=== PATIENT | female | born 1980 | race Caucasian/White ===

== ENCOUNTER 2020-08-14 13:41 | Outpatient (REF) | payer OTHER, MEDICARE, SELFPAY | END 2020-08-14 13:42 | disposition home or self-care (01) | LOC: HO.LAB 13:41 | PROVIDERS: PCP Internal Medicine; Visit Provider Internal Medicine | DX: Z20.828 Contact with and (suspected) exposure to other viral communicable diseases (principal) | CPT/HCPCS: C9803; U0003 ==

== ENCOUNTER 2022-05-14 08:20 | Outpatient (REF) | payer MEDICARE, SELFPAY ==
[2022-05-14 08:40] LABS: MANUAL DIFF FLAG NO
[2022-05-14 08:57] LABS: Basophils Percent Auto 0.7 % (0-2); Eosinophils Absolute Auto 0.1 X10*3/uL (0.0-0.4); Eosinophils Percent Auto 2.8 % (0-4); Hematocrit 39.3 % (37.0-47.0); Hemoglobin 13.2 g/dl (12.0-16.0); Imm Gran Abs Auto 0.01 X10*3/uL (0.00-0.03); Imm Gran Pct Auto 0.2 % (0.0-0.4); Lymphocytes Absolute Auto 1.7 X10*3/uL (1.2-4.9); Lymphocytes Percent Auto 40.4 % (20-40); Mean Corpuscular HGB Conc 33.6 g/dl (31.0-35.0); Mean Corpuscular Hemoglobin 26.9 pg (27.0-33.0); Mean Corpuscular Volume 80.2 fL (80.0-98.0); Mean Platelet Volume 9.9 fL (9.4-12.3); Monocytes Absolute Auto 0.3 X10*3/uL (0.1-1.2); Monocytes Percent Auto 7.2 % (2-11); Neutrophils Absolute Auto 2.1 x10*3/uL (2.0-8.3); Neutrophils Percent Auto 48.7 % (45-73); Platelet Count 228 X10*3/uL (160-400); Red Cell Distribution Width 14.1 % (11.0-16.0); White Blood Count 4.3 X10*3/uL (4.8-10.8)
[2022-05-14 09:26] LABS: Alanine Aminotransferase 8 U/L (0-31); Albumin Level 4.1 g/dL (3.5-5.0); Alkaline Phosphatase 42 U/L (39-117); Anion Gap 13 (12-20); Aspartate Amino Transferase 13 U/L (5-31); Bilirubin Total 0.6 mg/dL (0.0-1.0); Blood Urea Nitrogen 9 mg/dL (9-16); Calcium 8.9 mg/dL (8.4-10.2); Carbon Dioxide 21 mmol/L (22-29); Chloride 108 mmol/L (96-108); Cholesterol 244 mg/dL; Estimated Glomerular Filt Rate > 60; Glucose Fasting 99 mg/dL (60-99); HDL Cholesterol 46 mg/dL; LDL Cholesterol Calculated 179 mg/dl; Potassium 4.3 mmol/L (3.3-5.1); Sodium 138 mmol/L (135-145); Total Protein 6.9 g/dL (6.5-8.0); Triglycerides 96 mg/dL
[2022-05-14 09:49] LABS: TSH reflex Free T4 1.41 uIU/mL (0.32-4.0); Vitamin D 25-OH Total 35.1 ng/mL (>30)
[2022-05-14 09:56] LABS: Folate 11.6 ng/mL (> or = 4.0); Vitamin B12 220 pg/mL (200-900)
== END 2022-05-14 08:21 | disposition home or self-care (01) ==
LOC: HO.LAB 08:20
PROVIDERS: PCP Internal Medicine; Visit Provider Nurse Practitioner Family
DX: Z00.00 Encounter for general adult medical examination without abnormal findings (principal)
CPT/HCPCS: 36415; 80053; 80061; 82306; 82607; 82746; 84443; 85025

== ENCOUNTER 2022-12-31 11:44 | Inpatient (IN) | payer MEDICARE, MEDICAID, SELFPAY ==
--- NOTE | 2022-12-31 11:45 | ED.PSYCH ---
HPI - Psych General Chief Complaint: Psychiatric Symptoms <SURI Justin Last Filed: 12/31/22 19:38> Stated Complaint: Crisis <SURI Justin Last Filed: 12/31/22 19:38> Time Seen by Provider: 12/31/22 12:40 <SURI Justni Last Filed: 12/31/22 19:38> Source: patient <SURI Hawkins Last Filed: 01/01/23 06:41> Mode of arrival: ambulatory <SURI Hawkins Last Filed: 01/01/23 06:41> Limitations: no limitations <SURI Hawkins Last Filed: 01/01/23 06:41> History of Present Illness HPI Narrative: 42 yold female presents to the ED for depression and anixety and SI attemp. patient was caught by and daughter to a kneife to her neck. Patient states she was anxious and snapped and put the knife to her neck. patient admits to trying to kill herself before in the past. She states she is compliant with her psych meds. <SURI Hawkins Last Filed: 01/01/23 06:41> Related Data Home Medications: Home Medications Medication Instructions Recorded Confirmed sertraline 100 mg tablet 150 mg PO QAM 05/13/22 12/31/22 <SURI Justin - Last Filed: 12/31/22 19:38> Allergies/Adverse Reactions: Allergies Allergy/AdvReac Type Severity Reaction Status Date / Time No Known Allergies Allergy Verified 12/31/22 11:46 <SURI Justin Last Filed: 12/31/22 19:38> Review of Systems Review of Systems: depression, anxiety, knife to neck. <SURI Hawkins Last Filed: 01/01/23 06:41> Yes all other systems are reviewed and are negative <SURI Hawkins Last Filed: 01/01/23 06:41> PMFSH Past Medical History Medical History: Medical History (Updated 12/31/22 @ 19:38 by SURI Justin) Achilles tendon injury CVA (cerebral vascular accident) Foot drop, left History of breast cancer History of viral meningitis Hydrocephalus Irritable bowel syndrome Major depression Rib fracture <SURI Justin - Last Filed: 12/31/22 19:38> Surgical History: Surgical History (Updated 11/08/22 @ 15:46 by Alberto Reagan MD) S/P mastectomy, bilateral <SURI Justin - Last Filed: 12/31/22 19:38> Social History Social History: Social History Household Members: Spouse and Children Housing: House Do you presently have visiting nurse or other home services: No Patient Tobacco Use Status: Never used Tobacco Smoked in Last 30 Days: No Patient Interested in Nicotine Replacement: No Patient Given Instructions on How to Stop Smoking: No Use of substances other than those prescribed or required for medical reasons: No Currently Displaying Signs/Symptoms of Drug Intoxication Withdrawal: No Have you been hit, kicked, punched, or otherwise hurt by someone within the past year? If so, by whom?: No Do you feel safe in your current relationship?: Yes Is there a partner from a previous relationship who is making you feel unsafe now?: No Are you made to feel afraid or neglected: No Spiritual Healthcare Practices: None Nondenominational Healthcare Practices: None Cultural Healthcare Practices: None Advance Directives: No Advance Directives Information Provided: Yes Healthcare Proxy: Yes Guardian: No Do you have a plan to hurt others: No Plan Recently lost weight without trying: No Eating poorly because of decreased appetite: No Nutrition Risks: No Nutritional Risk Patient : No : No Poor oral hygiene: No Current occupational status: unemployed Cognitive needs: No Hearing needs: No Vision needs: Yes <SURI Justin - Last Filed: 12/31/22 19:38> Physical Exam Vital Signs: Vital Signs: Last Vital Signs Temp 97.2 F 01/01/23 01:50 Pulse 71 01/01/23 01:50 Resp 18 01/01/23 01:50 BP 132/81 01/01/23 01:50 Pulse Ox 97 01/01/23 01:50 O2 Del Method Room Air 01/01/23 01:50 BMI result Body Mass Index 32.9 <SURI Justin - Last Filed: 12/31/22 19:38> Vital Signs: Last Vital Signs Temp 97.2 F 01/01/23 01:50 Pulse 71 04/21/23 01:50 Resp 18 01/01/23 01:50 BP 132/81 01/01/23 01:50 Pulse Ox 97 01/01/23 01:50 O2 Del Method Room Air 01/01/23 01:50 BMI result Body Mass Index 32.9 <SURI Hawkins Last Filed: 01/01/23 06:41> Const: General: cooperative, healthy appearing, comfortable, no acute distress and well developed <SURI Hawkins Last Filed: 01/01/23 06:41> Orientation/consciousness: oriented to person, oriented to place, oriented to time and patient oriented x3 <SURI Hawkins Last Filed: 01/01/23 06:41> HEENT: Head: Yes normal to inspection, Yes No palpable skull fracture present, Yes normocephalic, Yes atraumatic and No abrasion <SURI Hawkins Last Filed: 01/01/23 06:41> Eyes: General: appearance normal, both eyes and all related structures <SURI Hawkins Last Filed: 01/01/23 06:41> Neck: Other: no neck laceration, abrasion, or ecchymosis <SURI Hawkins Last Filed: 01/01/23 06:41> Neck: Yes normal visual inspection, Yes full ROM, Yes no lymphadenopathy, Yes no meningeal signs, Yes trachea midline, Yes supple, No anterior neck swelling and No tender <SURI Hawkins Last Filed: 01/01/23 06:41> Chest: Chest palpation & inspection: normal inspection of the chest and normal palpation of entire chest wall <SURI Hawkins Last Filed: 01/01/23 06:41> Resp: Effort & Inspection: normal respiratory effort and able to speak in complete sentences <SURI Hawkins Last Filed: 01/01/23 06:41> Auscultation: clear to auscultation bilaterally <SURI Hawkins Last Filed: 01/01/23 06:41> Cardio: Jugular venous distension: no JVD <SURI Hawkins Last Filed: 01/01/23 06:41> Heart sounds: S1 normal heart sound present and S2 normal heart sound present <SURI Hawkins Last Filed: 01/01/23 06:41> GI: Inspection: Yes normal to inspection <SURI Hawkins Last Filed: 01/01/23 06:41> Palpation (GI): Soft to palpation, not firm, nontender, no guarding and not rigid <SURI Hawkins Last Filed: 01/01/23 06:41> : General: No CVA tenderness and Yes no CVA tenderness <SURI Hawkins Last Filed: 01/01/23 06:41> Back/Spine/Pelvis: Back: no CVA tenderness, No CVA tenderness and No back tenderness <SURI Hawkins Last Filed: 01/01/23 06:41> Skin: General skin exam: no rashes or lesions noted and elasticity normal <SURI Hawkins Last Filed: 01/01/23 06:41> Neuro: General: oriented to person, oriented to place, oriented to time, patient oriented x3, gait normal, tone normal, moves all extremities, Normal light touch and pain sensation, no meningeal signs, no focal motor deficits, CN's II-XI intact bilaterally and normal sensation to monofilament <SURI Hawkins Last Filed: 01/01/23 06:41> Extrem: General: Yes normal to inspection and Yes full ROM <SURI Hawkins Last Filed: 01/01/23 06:41> Psych: Appearance: grossly normal, well kempt and not disheveled <SURI Hawkins Last Filed: 01/01/23 06:41> Course Course Course Narrative: RME--42yo F w/PMHx CVA w/hemiparesis, depression, HLD, c/o increased depression w/SI thoughts x weeks. Admits had a knife in her hand this morning and wanted to hurt herself but her stopped her. Admits to cutting herself in the past. Denies HI/AH/VH, ETOH or illicit drug use Labs, ESPINOZA, CARE consult ordered <SURI Justin Last Filed: 12/31/22 19:38> Reevaluation(s) Reevaluation #1: Labs are normal. Patietn seen by care team and is being admitted to psych for admission <SURI Hawkins - Last Filed: 01/01/23 06:41> Time: 06:40 <SURI Hawkins - Last Filed: 01/01/23 06:41> Medical Decision Making Medical Decision Making [facility] Narrative: 42 yold female with pmh of depression and anxiety presented to the ED for SI attempt after mental break down. patietn compliant with her meds. patient labs are normal and to be admitted to psych M5 <SURI Hawkins - Last Filed: 01/01/23 06:41> Differential Diagnosis Differential Diagnoses: The differential diagnosis associated with the presentation includes (Depression, suicidal) <SURI Hawkins - Last Filed: 01/01/23 06:41> Admission/Observation Consideration of admission/observation: Escalation of care including admission/observation considered <SURI Hawkins - Last Filed: 01/01/23 06:41> Consult Healthcare Provider Management of the patient was discussed with: Behavioral Health Provider (Care team) <SURI Hawkins - Last Filed: 01/01/23 06:41> Lab Data [facility] Lab Attestation statement: I reviewed the patient's lab results. <SURI Hawkins - Last Filed: 01/01/23 06:41> Result Diagrams: 12/31/22 12:30 12/31/22 12:30 <SURI Justin - Last Filed: 12/31/22 19:38> Labs: Lab Results 12/31/22 12/31/22 12/31/22 Range/Units 12:30 12:30 12:30 WBC 4.5 L (4.8-10.8) X10*3/uL RBC 4.58 (4.20-5.50) X10*6/uL Hgb 12.4 (12.0-16.0) g/dl Hct 37.7 (37.0-47.0) % MCV 82.3 (80.0-98.0) fL MCH 27.1 (27.0-33.0) pg MCHC 32.9 (31.0-35.0) g/dl RDW 14.2 (11.0-16.0) % Plt Count 265 (160-400) X10*3/uL MPV 9.2 L (9.4-12.3) fL Immature Gran % (Auto) 0.2 (0.0-0.4) % Neut % (Auto) 60.4 (45-73) % Lymph % (Auto) 30.9 (20-40) % [place] % (Auto) 6.3 (2-11) % Eos % (Auto) 1.3 (0-4) % Baso % (Auto) 0.9 (0-2) % Lymph # (Auto) 1.4 (1.2-4.9) X10*3/uL [place] # (Auto) 0.3 (0.1-1.2) X10*3/uL Eos # (Auto) 0.1 (0.0-0.4) X10*3/uL Baso # (Auto) 0.0 (0.0-0.2) X10*3/uL Abs Immat Gran (auto) 0.01 (0.00-0.03) X10*3/uL Absolute Neuts (auto) 2.7 (2.0-8.3) x10*3/uL Absolute Nucleated RBC 0.000 (0.0-0.012) X10*3/uL Nucleated RBC % (auto) 0.0 (0.0-0.2) /100WBC Sodium 137 (135-145) mmol/L Potassium 4.1 (3.3-5.1) mmol/L Chloride 106 (96-108) mmol/L Carbon Dioxide 24 (22-29) mmol/L Anion Gap 11 L (12-20) BUN 10 (9-16) mg/dL Creatinine 0.69 (0.5-1.4) mg/dL Estim Creat Clear Calc 102.9 Estimated GFR > 60 Random Glucose 87 (60-115) mg/dL Calcium 8.6 (8.4-10.2) mg/dL Total Bilirubin 0.7 (0.0-1.0) mg/dL Direct Bilirubin 0.2 (0.0-0.5) mg/dL AST 15 (5-31) U/L ALT 11 (0-31) U/L Alkaline Phosphatase 39 (39-117) U/L Total Protein 6.4 L (6.5-8.0) g/dL Albumin 3.9 (3.5-5.0) g/dL Salicylates < 5.0 L (15-30) mg/dL Urine Opiates Screen (Not Detect) Urine Fentanyl Screen (Not Detect) Acetaminophen < 17 (<30) mcg/mL Ur Barbiturates Screen (Not Detect) Ur Phencyclidine Scrn (Not Detect) Ur Amphetamines Screen (Not Detect) U Benzodiazepines Scrn (Not Detect) Urine Cocaine Screen (Not Detect) U Marijuana (THC) Screen (Not Detect) Ethyl Alcohol < 10 mg/dL COVID-19 (DANIAL) (Negative) COVID-19 Clin Com 12/31/22 12/31/22 Range/Units 13:51 14:23 WBC (4.8-10.8) X10*3/uL RBC (4.20-5.50) X10*6/uL Hgb (12.0-16.0) g/dl Hct (37.0-47.0) % MCV (80.0-98.0) fL MCH (27.0-33.0) pg MCHC (31.0-35.0) g/dl RDW (11.0-16.0) % Plt Count (160-400) X10*3/uL MPV (9.4-12.3) fL Immature Gran % (Auto) (0.0-0.4) % Neut % (Auto) (45-73) % Lymph % (Auto) (20-40) % [place] % (Auto) (2-11) % Eos % (Auto) (0-4) % Baso % (Auto) (0-2) % Lymph # (Auto) (1.2-4.9) X10*3/uL [place] # (Auto) (0.1-1.2) X10*3/uL Eos # (Auto) (0.0-0.4) X10*3/uL Baso # (Auto) (0.0-0.2) X10*3/uL Abs Immat Gran (auto) (0.00-0.03) X10*3/uL Absolute Neuts (auto) (2.0-8.3) x10*3/uL Absolute Nucleated RBC (0.0-0.012) X10*3/uL Nucleated RBC % (auto) (0.0-0.2) /100WBC Sodium (135-145) mmol/L Potassium (3.3-5.1) mmol/L Chloride (96-108) mmol/L Carbon Dioxide (22-29) mmol/L Anion Gap (12-20) BUN (9-16) mg/dL Creatinine (0.5-1.4) mg/dL Estim Creat Clear Calc Estimated GFR Random Glucose (60-115) mg/dL Calcium (8.4-10.2) mg/dL Total Bilirubin (0.0-1.0) mg/dL Direct Bilirubin (0.0-0.5) mg/dL AST (5-31) U/L ALT (0-31) U/L Alkaline Phosphatase (39-117) U/L Total Protein (6.5-8.0) g/dL Albumin (3.5-5.0) g/dL Salicylates (15-30) mg/dL Urine Opiates Screen Not Detected (Not Detect) Urine Fentanyl Screen Not Detected (Not Detect) Acetaminophen (<30) mcg/mL Ur Barbiturates Screen Not Detected (Not Detect) Ur Phencyclidine Scrn Not Detected (Not Detect) Ur Amphetamines Screen Not Detected (Not Detect) U Benzodiazepines Scrn Not Detected (Not Detect) Urine Cocaine Screen Not Detected (Not Detect) U Marijuana (THC) Screen Not Detected (Not Detect) Ethyl Alcohol mg/dL COVID-19 (DANIAL) Negative (Negative) COVID-19 Clin Com See Note <SURI Justin - Last Filed: 12/31/22 19:38> Lab Results 12/31/22 12/31/22 12/31/22 Range/Units 12:30 12:30 12:30 WBC 4.5 L (4.8-10.8) X10*3/uL RBC 4.58 (4.20-5.50) X10*6/uL Hgb 12.4 (12.0-16.0) g/dl Hct 37.7 (37.0-47.0) % MCV 82.3 (80.0-98.0) fL MCH 27.1 (27.0-33.0) pg MCHC 32.9 (31.0-35.0) g/dl RDW 14.2 (11.0-16.0) % Plt Count 265 (160-400) X10*3/uL MPV 9.2 L (9.4-12.3) fL Immature Gran % (Auto) 0.2 (0.0-0.4) % Neut % (Auto) 60.4 (45-73) % Lymph % (Auto) 30.9 (20-40) % [place] % (Auto) 6.3 (2-11) % Eos % (Auto) 1.3 (0-4) % Baso % (Auto) 0.9 (0-2) % Lymph # (Auto) 1.4 (1.2-4.9) X10*3/uL [place] # (Auto) 0.3 (0.1-1.2) X10*3/uL Eos # (Auto) 0.1 (0.0-0.4) X10*3/uL Baso # (Auto) 0.0 (0.0-0.2) X10*3/uL Abs Immat Gran (auto) 0.01 (0.00-0.03) X10*3/uL Absolute Neuts (auto) 2.7 (2.0-8.3) x10*3/uL Absolute Nucleated RBC 0.000 (0.0-0.012) X10*3/uL Nucleated RBC % (auto) 0.0 (0.0-0.2) /100WBC Sodium 137 (135-145) mmol/L Potassium 4.1 (3.3-5.1) mmol/L Chloride 106 (96-108) mmol/L Carbon Dioxide 24 (22-29) mmol/L Anion Gap 11 L (12-20) BUN 10 (9-16) mg/dL Creatinine 0.69 (0.5-1.4) mg/dL Estim Creat Clear Calc 102.9 Estimated GFR > 60 Random Glucose 87 (60-115) mg/dL Calcium 8.6 (8.4-10.2) mg/dL Total Bilirubin 0.7 (0.0-1.0) mg/dL Direct Bilirubin 0.2 (0.0-0.5) mg/dL AST 15 (5-31) U/L ALT 11 (0-31) U/L Alkaline Phosphatase 39 (39-117) U/L Total Protein 6.4 L (6.5-8.0) g/dL Albumin 3.9 (3.5-5.0) g/dL Salicylates < 5.0 L (15-30) mg/dL Urine Opiates Screen (Not Detect) Urine Fentanyl Screen (Not Detect) Acetaminophen < 17 (<30) mcg/mL Ur Barbiturates Screen (Not Detect) Ur Phencyclidine Scrn (Not Detect) Ur Amphetamines Screen (Not Detect) U Benzodiazepines Scrn (Not Detect) Urine Cocaine Screen (Not Detect) U Marijuana (THC) Screen (Not Detect) Ethyl Alcohol < 10 mg/dL COVID-19 (DANIAL) (Negative) COVID-19 Clin Com 12/31/22 12/31/22 Range/Units 13:51 14:23 WBC (4.8-10.8) X10*3/uL RBC (4.20-5.50) X10*6/uL Hgb (12.0-16.0) g/dl Hct (37.0-47.0) % MCV (80.0-98.0) fL MCH (27.0-33.0) pg MCHC (31.0-35.0) g/dl RDW (11.0-16.0) % Plt Count (160-400) X10*3/uL MPV (9.4-12.3) fL Immature Gran % (Auto) (0.0-0.4) % Neut % (Auto) (45-73) % Lymph % (Auto) (20-40) % [place] % (Auto) (2-11) % Eos % (Auto) (0-4) % Baso % (Auto) (0-2) % Lymph # (Auto) (1.2-4.9) X10*3/uL [place] # (Auto) (0.1-1.2) X10*3/uL Eos # (Auto) (0.0-0.4) X10*3/uL Baso # (Auto) (0.0-0.2) X10*3/uL Abs Immat Gran (auto) (0.00-0.03) X10*3/uL Absolute Neuts (auto) (2.0-8.3) x10*3/uL Absolute Nucleated RBC (0.0-0.012) X10*3/uL Nucleated RBC % (auto) (0.0-0.2) /100WBC Sodium (135-145) mmol/L Potassium (3.3-5.1) mmol/L Chloride (96-108) mmol/L Carbon Dioxide (22-29) mmol/L Anion Gap (12-20) BUN (9-16) mg/dL Creatinine (0.5-1.4) mg/dL Estim Creat Clear Calc Estimated GFR Random Glucose (60-115) mg/dL Calcium (8.4-10.2) mg/dL Total Bilirubin (0.0-1.0) mg/dL Direct Bilirubin (0.0-0.5) mg/dL AST (5-31) U/L ALT (0-31) U/L Alkaline Phosphatase (39-117) U/L Total Protein (6.5-8.0) g/dL Albumin (3.5-5.0) g/dL Salicylates (15-30) mg/dL Urine Opiates Screen Not Detected (Not Detect) Urine Fentanyl Screen Not Detected (Not Detect) Acetaminophen (<30) mcg/mL Ur Barbiturates Screen Not Detected (Not Detect) Ur Phencyclidine Scrn Not Detected (Not Detect) Ur Amphetamines Screen Not Detected (Not Detect) U Benzodiazepines Scrn Not Detected (Not Detect) Urine Cocaine Screen Not Detected (Not Detect) U Marijuana (THC) Screen Not Detected (Not Detect) Ethyl Alcohol mg/dL COVID-19 (DANIAL) Negative (Negative) COVID-19 Clin Com See Note <SURI Hawkins - Last Filed: 01/01/23 06:41> External Record Review External record reviewed: Outpatient record <SURI Hawkins - Last Filed: 01/01/23 06:41> Discharge Plan Discharge Clinical Impression: Depression, Suicidal ideation <SURI Jusitn Last Filed: 12/31/22 19:38> Patient Disposition: Admitted As Inpatient <SURI Justin - Last Filed: 12/31/22 19:38> Interventions: Stephens-Suicide Risk Severity Scale Last Done: 12/31/22 21:22 Admission Worksheet (ED) Last Done: 01/01/23 02:18 <SURI Justin - Last Filed: 12/31/22 19:38> Discharge Date/Time: 01/01/23 02:19 <SURI Justin - Last Filed: 12/31/22 19:38>
[2022-12-31 11:47] VITALS: BP 177/109; PULSE 75; RESP 19; TEMP 36.6; O2SAT 98; BMI 32.9
[2022-12-31 12:36] LABS: MANUAL DIFF FLAG NO
[2022-12-31 12:39] LABS: Basophils Percent Auto 0.9 % (0-2); Eosinophils Absolute Auto 0.1 X10*3/uL (0.0-0.4); Eosinophils Percent Auto 1.3 % (0-4); Hematocrit 37.7 % (37.0-47.0); Hemoglobin 12.4 g/dl (12.0-16.0); Imm Gran Abs Auto 0.01 X10*3/uL (0.00-0.03); Imm Gran Pct Auto 0.2 % (0.0-0.4); Lymphocytes Absolute Auto 1.4 X10*3/uL (1.2-4.9); Lymphocytes Percent Auto 30.9 % (20-40); Mean Corpuscular HGB Conc 32.9 g/dl (31.0-35.0); Mean Corpuscular Hemoglobin 27.1 pg (27.0-33.0); Mean Corpuscular Volume 82.3 fL (80.0-98.0); Mean Platelet Volume 9.2 fL (9.4-12.3); Monocytes Absolute Auto 0.3 X10*3/uL (0.1-1.2); Monocytes Percent Auto 6.3 % (2-11); Neutrophils Absolute Auto 2.7 x10*3/uL (2.0-8.3); Neutrophils Percent Auto 60.4 % (45-73); Platelet Count 265 X10*3/uL (160-400); Red Blood Count 4.58 X10*6/uL (4.20-5.50); Red Cell Distribution Width 14.2 % (11.0-16.0); White Blood Count 4.5 X10*3/uL (4.8-10.8)
[2022-12-31 12:54] LABS: Ethanol < 10 mg/dL
[2022-12-31 13:08] LABS: Alanine Aminotransferase 11 U/L (0-31); Albumin Level 3.9 g/dL (3.5-5.0); Alkaline Phosphatase 39 U/L (39-117); Anion Gap 11 (12-20); Aspartate Amino Transferase 15 U/L (5-31); Bilirubin Direct 0.2 mg/dL (0.0-0.5); Bilirubin Total 0.7 mg/dL (0.0-1.0); Blood Urea Nitrogen 10 mg/dL (9-16); Calcium 8.6 mg/dL (8.4-10.2); Carbon Dioxide 24 mmol/L (22-29); Chloride 106 mmol/L (96-108); Creatinine Clr Calc Pharmacy 102.9; Estimated Glomerular Filt Rate > 60; Glucose Random 87 mg/dL (60-115); Potassium 4.1 mmol/L (3.3-5.1); Sodium 137 mmol/L (135-145); Total Protein 6.4 g/dL (6.5-8.0)
[2022-12-31 13:12] VITALS: RESP 18
[2022-12-31 13:28] LABS: Acetaminophen LAB < 17 mcg/mL (<30); Salicylate < 5.0 mg/dL (15-30)
[2022-12-31 14:19] LABS: COVID-19 Test Negative (Negative); IDNOW Serial# 9DB6401D
[2022-12-31 14:50] LABS: Amphetamine Screen Urine Not Detected (Not Detect); Barbiturates, Urine Not Detected (Not Detect); Benzodiazepines Screen Urine Not Detected (Not Detect); Cannabinoid Screen Urine Not Detected (Not Detect); Cocaine Screen Urine Not Detected (Not Detect); Fentanyl, urine Not Detected (Not Detect); Opiate Screen Urine Not Detected (Not Detect); Phencyclidine Screen Urine Not Detected (Not Detect)
--- NOTE | 2022-12-31 17:34 | PC.NURSE ---
care team at the bedside
[2023-01-01 01:50] VITALS: BP 132/81; PULSE 71; RESP 18; TEMP 36.2; O2SAT 97
--- NOTE | 2023-01-01 02:30 | PC.ADMIT ---
PT is a 42 year old, white female admitted at 0145 on CV from [facility] ED POD, brought to ED by due to finding a knife in the bedroom, there was a knife under the laundry on the bed per , PT stated she had the knife in the room for a few days because 'She wanted to kill herself' per Care team report. PT has hx of SIB, CVA, L sided hemiparesis (wears L AFO), MDD breast cancer, hydrocephalus, IBS, and hyperlipidemia. Per report PT felt like her depression has been increasing over the last few months. PT has a therapist and takes Sertraline. PT is calm and cooperative, A+O, VS, PT denies SI/HI and reports feeling safe on unit. Safety plan and initial treatment plan started. PT is currently resting in bed with eyes closed on 15 minute safety checks.
[2023-01-01 06:00] VITALS: BP 136/85; PULSE 80; RESP 14; TEMP 37.1
[2023-01-01 08:22] LABS: Estimated Average Glucose 105 mg/dL; Hemoglobin A1c % 5.3 %
[2023-01-01 08:38] LABS: Cholesterol 228 mg/dL; HDL Cholesterol 53 mg/dL; LDL Cholesterol Calculated 165 mg/dl; Magnesium 2.1 mg/dL (1.6-2.6); Triglycerides 52 mg/dL
--- NOTE | 2023-01-01 09:00 | ECG_ITS ---
Test Reason : check qtc Blood Pressure : / mmHG Vent. Rate : 079 BPM Atrial Rate : 079 BPM P-R Int : 112 ms QRS Dur : 078 ms QT Int : 390 ms P-R-T Axes : 055 -07 015 degrees QTc Int : 447 ms Artifact in tracing Normal sinus rhythm Normal ECG When compared with ECG of 02-JUL-2008 10:33, No significant change was found Referred By: Trini Cobb Electronically Signed By:ALBERT URBINA
[2023-01-01] MEDS: Sertraline HCL 50 MG TABLET 150 MG PO (09:03)
[2023-01-01 09:07] LABS: Folate 7.6 ng/mL (> or = 4.0); Free T4 (Free Thyroxine) 0.87 ng/dL (0.71-1.85); Thyroid Stimulating Hormone 1.22 uIU/mL (0.32-4.0); Vitamin B12 246 pg/mL (200-900)
[2023-01-01 16:55] VITALS: BP 152/65; PULSE 75; TEMP 36.4
--- NOTE | 2023-01-01 17:14 | HO.PSYCHPN ---
Subjective Subjective Reason For Visit: Recurrent severe major depression Diagnostics Vital Signs (24Hr): Vital Signs - 24 hr 01/01/23 01:50 01/01/23 06:00 01/01/23 16:55 Temperature 97.2 F 98.8 F 97.6 F Pulse Rate 71 80 75 Respiratory Rate 18 14 Blood Pressure 132/81 136/85 152/65 H Pulse Oximetry 97 Oxygen Delivery Method Room Air BMI result Body Mass Index 32.9 Labs 12/31/22 12:30 12/31/22 12:30 Labs: Laboratory Results - last 48 hr 12/31/22 12/31/22 12/31/22 12:30 12:30 12:30 WBC 4.5 L RBC 4.58 Hgb 12.4 Hct 37.7 MCV 82.3 MCH 27.1 MCHC 32.9 RDW 14.2 Plt Count 265 MPV 9.2 L Immature Gran % (Auto) 0.2 Neut % (Auto) 60.4 Lymph % (Auto) 30.9 [place] % (Auto) 6.3 Eos % (Auto) 1.3 Baso % (Auto) 0.9 Lymph # (Auto) 1.4 [place] # (Auto) 0.3 Eos # (Auto) 0.1 Baso # (Auto) 0.0 Abs Immat Gran (auto) 0.01 Absolute Neuts (auto) 2.7 Absolute Nucleated RBC 0.000 Nucleated RBC % (auto) 0.0 Sodium 137 Potassium 4.1 Chloride 106 Carbon Dioxide 24 Anion Gap 11 L BUN 10 Creatinine 0.69 Estim Creat Clear Calc 102.9 Estimated GFR > 60 Random Glucose 87 Estimat Average Glucose Hemoglobin A1c % Calcium 8.6 Magnesium Total Bilirubin 0.7 Direct Bilirubin 0.2 AST 15 ALT 11 Alkaline Phosphatase 39 Total Protein 6.4 L Albumin 3.9 Triglycerides Cholesterol LDL Cholesterol, Calc HDL Cholesterol Vitamin B12 Folate TSH Free T4 Salicylates < 5.0 L Urine Opiates Screen Urine Fentanyl Screen Acetaminophen < 17 Ur Barbiturates Screen Ur Phencyclidine Scrn Ur Amphetamines Screen U Benzodiazepines Scrn Urine Cocaine Screen U Marijuana (THC) Screen Ethyl Alcohol < 10 COVID-19 (DANIAL) COVID-19 Clin Com 12/31/22 12/31/22 01/01/23 13:51 14:23 07:56 WBC RBC Hgb Hct MCV MCH MCHC RDW Plt Count MPV Immature Gran % (Auto) Neut % (Auto) Lymph % (Auto) [place] % (Auto) Eos % (Auto) Baso % (Auto) Lymph # (Auto) [place] # (Auto) Eos # (Auto) Baso # (Auto) Abs Immat Gran (auto) Absolute Neuts (auto) Absolute Nucleated RBC Nucleated RBC % (auto) Sodium Potassium Chloride Carbon Dioxide Anion Gap BUN Creatinine Estim Creat Clear Calc Estimated GFR Random Glucose Estimat Average Glucose 105 Hemoglobin A1c % 5.3 Calcium Magnesium Total Bilirubin Direct Bilirubin AST ALT Alkaline Phosphatase Total Protein Albumin Triglycerides Cholesterol LDL Cholesterol, Calc HDL Cholesterol Vitamin B12 Folate TSH Free T4 Salicylates Urine Opiates Screen Not Detected Urine Fentanyl Screen Not Detected Acetaminophen Ur Barbiturates Screen Not Detected Ur Phencyclidine Scrn Not Detected Ur Amphetamines Screen Not Detected U Benzodiazepines Scrn Not Detected Urine Cocaine Screen Not Detected U Marijuana (THC) Screen Not Detected Ethyl Alcohol COVID-19 (DANIAL) Negative COVID-19 [facility] See Note 01/01/23 07:56 WBC RBC Hgb Hct MCV MCH MCHC RDW Plt Count MPV Immature Gran % (Auto) Neut % (Auto) Lymph % (Auto) [place] % (Auto) Eos % (Auto) Baso % (Auto) Lymph # (Auto) [place] # (Auto) Eos # (Auto) Baso # (Auto) Abs Immat Gran (auto) Absolute Neuts (auto) Absolute Nucleated RBC Nucleated RBC % (auto) Sodium Potassium Chloride Carbon Dioxide Anion Gap BUN Creatinine Estim Creat Clear Calc Estimated GFR Random Glucose Estimat Average Glucose Hemoglobin A1c % Calcium Magnesium 2.1 Total Bilirubin Direct Bilirubin AST ALT Alkaline Phosphatase Total Protein Albumin Triglycerides 52 Cholesterol 228 LDL Cholesterol, Calc 165 HDL Cholesterol 53 Vitamin B12 246 Folate 7.6 TSH 1.22 Free T4 0.87 Salicylates Urine Opiates Screen Urine Fentanyl Screen Acetaminophen Ur Barbiturates Screen Ur Phencyclidine Scrn Ur Amphetamines Screen U Benzodiazepines Scrn Urine Cocaine Screen U Marijuana (THC) Screen Ethyl Alcohol COVID-19 (DANIAL) COVID-19 [employer] Com Medications Medications Current Medications Acetaminophen (Acetaminophen 325 Mg Tablet) 650 mg PO Q6H PRN PRN Reason: Headache/Pain Mild Scale (1-3) Al Hydroxide/Mg Hydroxide (Magnesium Hydrox/Alum Hydrox 30 Ml Oral.Susp) 30 ml PO Q6H PRN PRN Reason: Heartburn/Nausea Cyanocobalamin (Cyanocobalamin (Vitamin B-12) 100 Mcg Tablet) 100 mcg PO DAILY VIKI Hydroxyzine HCl (Hydroxyzine Hcl 25 Mg Tablet) 25 mg PO Q6H PRN PRN Reason: Anxiety Magnesium Hydroxide (Milk Of Magnesia 30 Ml Oral.Susp) 30 ml PO DAILY PRN PRN Reason: Constipation Sertraline HCl (Sertraline Hcl 50 Mg Tablet) 150 mg PO DAILY VIKI Last Admin: 01/01/23 09:03 Dose: 150 mg Trazodone HCl (Trazodone Hcl 50 Mg Tablet) 50 mg PO BEDTIME MRX1 PRN PRN Reason: Insomnia Allergies Allergies Allergy/AdvReac Type Severity Reaction Status Date / Time No Known Allergies Allergy Verified 12/31/22 11:46 Assessment & Plan Time Spent With Patient Time: Total time managing care of this patient today ____ minutes.
--- NOTE | 2023-01-01 17:17 | P.HPPS_ITS ---
HPI Date of Service: 01/01/23 Chief Complaint: Recurrent severe major depression Sources of Information: patient interviewed, chart reviewed and crisis/core team assessment reviewed HPI Subjective Notes: [place] Warning and Conditional Voluntary Healthcare Proxy: No Guardianship: No Medical Problems Affecting Mental Status: No Narrative: 42 yo female to ER with family due to home stress . found a knife in pt's room, she was intending to use this to suicide due to several stressors which she identifies as finances- was forced to retire due to CVA, con cussion on 04/06/22. He worked for the [employer] and has not been able to straighten out his long-term yet. Family has hired an mergers and acquisitions attorney, however the financial stress this has created is significant. Couple have a 12 yo daughter beginning adolescence. Pt reports sleep and appetite are average. She is overwhelmed with negative thoughts and wants to try to alleviate them during this admission. Past Psychiatric History: IP: [facility] 2019-wrist cuts in a suicide attempt OP [facility] Gutierrez for a few months for psychotherapy and [facility] Marte for psychopharmacology Trials: Sertraline, recently increased to 150 mg- she finds it helpful. SA 2019, mother in law who lives next to the family was causing stress. She is still there but less of a stress as she is managing her own medical issues Denies ashutosh hx, denies psychosis hx. Medical Evaluation Reviewed: Yes [facility] Medical History Achilles tendon injury CVA (cerebral vascular accident) Foot drop, left History of breast cancer History of viral meningitis Hydrocephalus Irritable bowel syndrome Major depression Rib fracture Surgical History S/P mastectomy, bilateral Family History: Biological father suicided when pt was in her teens- Pt did not know her father well. Social History: Born in [place], [place]. Father was in the . 3 brothers- one full, 2 half Raised in [place], [facility] Parents when pt was age 2 Mom 2016-step dad is a good support. 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 , one daughter age 12-strong willed, like her father [employer] Enjoys walks, music, puzzles, math Diagnostics Vital Signs (24Hr): Vital Signs - 24 hr 01/01/23 01:50 01/01/23 06:00 01/01/23 16:55 Temperature 97.2 F 98.8 F 97.6 F Pulse Rate 71 80 75 Respiratory Rate 18 14 Blood Pressure 132/81 136/85 152/65 H Pulse Oximetry 97 Oxygen Delivery Method Room Air BMI result Body Mass Index 32.9 Labs 12/31/22 12:30 12/31/22 12:30 Labs: Laboratory Results - last 48 hr 12/31/22 12/31/22 12/31/22 12:30 12:30 12:30 WBC 4.5 L RBC 4.58 Hgb 12.4 Hct 37.7 MCV 82.3 MCH 27.1 MCHC 32.9 RDW 14.2 Plt Count 265 MPV 9.2 L Immature Gran % (Auto) 0.2 Neut % (Auto) 60.4 Lymph % (Auto) 30.9 [place] % (Auto) 6.3 Eos % (Auto) 1.3 Baso % (Auto) 0.9 Lymph # (Auto) 1.4 [place] # (Auto) 0.3 Eos # (Auto) 0.1 Baso # (Auto) 0.0 Abs Immat Gran (auto) 0.01 Absolute Neuts (auto) 2.7 Absolute Nucleated RBC 0.000 Nucleated RBC % (auto) 0.0 Sodium 137 Potassium 4.1 Chloride 106 Carbon Dioxide 24 Anion Gap 11 L BUN 10 Creatinine 0.69 Estim Creat Clear Calc 102.9 Estimated GFR > 60 Random Glucose 87 Estimat Average Glucose Hemoglobin A1c % Calcium 8.6 Magnesium Total Bilirubin 0.7 Direct Bilirubin 0.2 AST 15 ALT 11 Alkaline Phosphatase 39 Total Protein 6.4 L Albumin 3.9 Triglycerides Cholesterol LDL Cholesterol, Calc HDL Cholesterol Vitamin B12 Folate TSH Free T4 Salicylates < 5.0 L Urine Opiates Screen Urine Fentanyl Screen Acetaminophen < 17 Ur Barbiturates Screen Ur Phencyclidine Scrn Ur Amphetamines Screen U Benzodiazepines Scrn Urine Cocaine Screen U Marijuana (THC) Screen Ethyl Alcohol < 10 COVID-19 ([facility]ANIAL) COVID-19 Clin Com 12/31/22 12/31/22 01/01/23 13:51 14:23 07:56 WBC RBC Hgb Hct MCV MCH MCHC RDW Plt Count MPV Immature Gran % (Auto) Neut % (Auto) Lymph % (Auto) [place] % (Auto) Eos % (Auto) Baso % (Auto) Lymph # (Auto) [place] # (Auto) Eos # (Auto) Baso # (Auto) Abs Immat Gran (auto) Absolute Neuts (auto) Absolute Nucleated RBC Nucleated RBC % (auto) Sodium Potassium Chloride Carbon Dioxide Anion Gap BUN Creatinine Estim Creat Clear Calc Estimated GFR Random Glucose Estimat Average Glucose 105 Hemoglobin A1c % 5.3 Calcium Magnesium Total Bilirubin Direct Bilirubin AST ALT Alkaline Phosphatase Total Protein Albumin Triglycerides Cholesterol LDL Cholesterol, Calc HDL Cholesterol Vitamin B12 Folate TSH Free T4 Salicylates Urine Opiates Screen Not Detected Urine Fentanyl Screen Not Detected Acetaminophen Ur Barbiturates Screen Not Detected Ur Phencyclidine Scrn Not Detected Ur Amphetamines Screen Not Detected U Benzodiazepines Scrn Not Detected Urine Cocaine Screen Not Detected U Marijuana (THC) Screen Not Detected Ethyl Alcohol COVID-19 ([facility]ANIAL) Negative [email or web address] See Note 01/01/23 07:56 WBC RBC Hgb Hct MCV MCH MCHC RDW Plt Count MPV Immature Gran % (Auto) Neut % (Auto) Lymph % (Auto) [place] % (Auto) Eos % (Auto) Baso % (Auto) Lymph # (Auto) [place] # (Auto) Eos # (Auto) Baso # (Auto) Abs Immat Gran (auto) Absolute Neuts (auto) Absolute Nucleated RBC Nucleated RBC % (auto) Sodium Potassium Chloride Carbon Dioxide Anion Gap BUN Creatinine Estim Creat Clear Calc Estimated GFR Random Glucose Estimat Average Glucose Hemoglobin A1c % Calcium Magnesium 2.1 Total Bilirubin Direct Bilirubin AST ALT Alkaline Phosphatase Total Protein Albumin Triglycerides 52 Cholesterol 228 LDL Cholesterol, Calc 165 HDL Cholesterol 53 Vitamin B12 246 Folate 7.6 TSH 1.22 Free T4 0.87 Salicylates Urine Opiates Screen Urine Fentanyl Screen Acetaminophen Ur Barbiturates Screen Ur Phencyclidine Scrn Ur Amphetamines Screen U Benzodiazepines Scrn Urine Cocaine Screen U Marijuana (THC) Screen Ethyl Alcohol COVID-19 ([facility]ANIAL) [email or web address] Meds/Allergies Meds Home Medications Medication Instructions Recorded Confirmed Type sertraline 100 mg tablet 150 mg PO QAM 05/13/22 12/31/22 History Allergies Allergies Allergy/AdvReac Type Severity Reaction Status Date / Time No Known Allergies Allergy Verified 12/31/22 11:46 Mental Status Exam Mental Status Exam Patient Appearance: Fatigued Patient Orientation: Person, Place, Time and Situation Level of Consciousness: Alert Patient Behavior: Appropriate, Talkative, Cooperative and Good Eye Contact Mood Description: Depressed and Anxious Affect Description: Flat Patient Cognition Impaired: No Ability to Follow Directions: Good Speech Pattern: Spontaneous Speech Memory Description: Episodic Impaired Hallucinations: None Delusions: Not Present Perceptual Disturbances: Derealization Thought Process: Rumination Thought Content: positive for Perseveration and positive for Suicidal Ideation Depressive Symptoms: Hopelessness, Unhappiness and Thoughts of /Suicide Judgement: Fair Assessment & Plan Assessment & Plan (1) Suicidal ideation: Status: Acute Code(s): R45.851 - Suicidal ideations (2) CVA (cerebral vascular accident): Status: Acute Code(s): I63.9 - Cerebral infarction, unspecified (3) Major depression: Status: Acute Code(s): F32.9 - Major depressive disorder, single episode, unspecified Plan 42 yo female, with depression, SI, hiding a knife in her bedroom with plan to kill herself. Plan: Observe, Continue Sertraline Collateral contact ? Mood stabilizer augmentation Patient educated on: medication risk/benefits and therapeutic strategies Informed Consent: further education needed Reason for continued inpatient stay Substantial Risk for: harm to self and rapid decompensation Statement Statement: I have reviewed the history and physical and performed a pertinent examination on my patient. No changes have occurred unless specified. If the History and Physical was not performed prior to admission, the Hospitalist's service will be consulted for completing the admission physical. Time Spent With Patient Time: Total time managing care of this patient today ____ minutes.
[2023-01-02] MEDS: Sertraline HCL 50 MG TABLET 150 MG PO (08:57)
[2023-01-02] MEDS: Cyanocobalamin (Vitamin B-12) 100 MCG TABLET PO (08:57)
[2023-01-02 09:01] VITALS: BP 141/93; PULSE 104; RESP 16; TEMP 36.7; O2SAT 97
--- NOTE | 2023-01-02 10:08 | P.PNPSI_ITS ---
Subjective Subjective Date of Service: 01/02/23 Reason For Visit: Recurrent severe major depression Subjective Notes: Conditional Voluntary Healthcare Proxy: No Guardianship: No Medical Problems Affecting Mental Status: No Interim History: Patient was seen and discussed in rounds today. Records and plans were reviewed. She has been pleasant and is doing better. Continues to have some anxiety. She has some passive suicidal ideations but is safe on the unit. She has been medication compliant. Eating and sleeping adequately. No changes were made today Medication Compliance: Yes Side effects from medications: No Attending Groups: Yes Review of Systems Review of Systems Yes all other systems are reviewed and are negative Reports behavioral changes Psychiatric: Reports anxiety, Reports behavioral changes, Reports depression, Reports difficulty concentrating, Reports hopelessness, Reports irritability, Reports anhedonia and Reports suicidal ideation Mental Status Exam Mental Status Exam Narrative: In today's visit she is alert, oriented and pleasant. Normal speech. Moderate eye contact. Affect is subdued. No active SI. Cognitively is grossly intact but some memory problems have been present intermittently. Judgment is intact Diagnostics Vital Signs (24Hr): Vital Signs - 24 hr 01/01/23 16:55 01/02/23 09:01 Temperature 97.6 F 98.1 F Pulse Rate 75 104 H Respiratory Rate 16 Blood Pressure 152/65 H 141/93 H Pulse Oximetry 97 Oxygen Delivery Method Room Air BMI result Body Mass Index 32.9 Labs 12/31/22 12:30 12/31/22 12:30 Labs: Laboratory Results - last 48 hr 12/31/22 12/31/22 12/31/22 12:30 12:30 12:30 WBC 4.5 L RBC 4.58 Hgb 12.4 Hct 37.7 MCV 82.3 MCH 27.1 MCHC 32.9 RDW 14.2 Plt Count 265 MPV 9.2 L Immature Gran % (Auto) 0.2 Neut % (Auto) 60.4 Lymph % (Auto) 30.9 [place] % (Auto) 6.3 Eos % (Auto) 1.3 Baso % (Auto) 0.9 Lymph # (Auto) 1.4 [place] # (Auto) 0.3 Eos # (Auto) 0.1 Baso # (Auto) 0.0 Abs Immat Gran (auto) 0.01 Absolute Neuts (auto) 2.7 Absolute Nucleated RBC 0.000 Nucleated RBC % (auto) 0.0 Sodium 137 Potassium 4.1 Chloride 106 Carbon Dioxide 24 Anion Gap 11 L BUN 10 Creatinine 0.69 Estim Creat Clear Calc 102.9 Estimated GFR > 60 Random Glucose 87 Estimat Average Glucose Hemoglobin A1c % Calcium 8.6 Magnesium Total Bilirubin 0.7 Direct Bilirubin 0.2 AST 15 ALT 11 Alkaline Phosphatase 39 Total Protein 6.4 L Albumin 3.9 Triglycerides Cholesterol LDL Cholesterol, Calc HDL Cholesterol Vitamin B12 Folate TSH Free T4 Salicylates < 5.0 L Urine Opiates Screen Urine Fentanyl Screen Acetaminophen < 17 Ur Barbiturates Screen Ur Phencyclidine Scrn Ur Amphetamines Screen U Benzodiazepines Scrn Urine Cocaine Screen U Marijuana (THC) Screen Ethyl Alcohol < 10 COVID-19 (DANIAL) COVID-19 [employer] 12/31/22 12/31/22 01/01/23 13:51 14:23 07:56 WBC RBC Hgb Hct MCV MCH MCHC RDW Plt Count MPV Immature Gran % (Auto) Neut % (Auto) Lymph % (Auto) [place] % (Auto) Eos % (Auto) Baso % (Auto) Lymph # (Auto) [place] # (Auto) Eos # (Auto) Baso # (Auto) Abs Immat Gran (auto) Absolute Neuts (auto) Absolute Nucleated RBC Nucleated RBC % (auto) Sodium Potassium Chloride Carbon Dioxide Anion Gap BUN Creatinine Estim Creat Clear Calc Estimated GFR Random Glucose Estimat Average Glucose 105 Hemoglobin A1c % 5.3 Calcium Magnesium Total Bilirubin Direct Bilirubin AST ALT Alkaline Phosphatase Total Protein Albumin Triglycerides Cholesterol LDL Cholesterol, Calc HDL Cholesterol Vitamin B12 Folate TSH Free T4 Salicylates Urine Opiates Screen Not Detected Urine Fentanyl Screen Not Detected Acetaminophen Ur Barbiturates Screen Not Detected Ur Phencyclidine Scrn Not Detected Ur Amphetamines Screen Not Detected U Benzodiazepines Scrn Not Detected Urine Cocaine Screen Not Detected U Marijuana (THC) Screen Not Detected Ethyl Alcohol COVID-19 (DANIAL) Negative COVID-19 [employer] See Note 01/01/23 07:56 WBC RBC Hgb Hct MCV MCH MCHC RDW Plt Count MPV Immature Gran % (Auto) Neut % (Auto) Lymph % (Auto) [place] % (Auto) Eos % (Auto) Baso % (Auto) Lymph # (Auto) [place] # (Auto) Eos # (Auto) Baso # (Auto) Abs Immat Gran (auto) Absolute Neuts (auto) Absolute Nucleated RBC Nucleated RBC % (auto) Sodium Potassium Chloride Carbon Dioxide Anion Gap BUN Creatinine Estim Creat Clear Calc Estimated GFR Random Glucose Estimat Average Glucose Hemoglobin A1c % Calcium Magnesium 2.1 Total Bilirubin Direct Bilirubin AST ALT Alkaline Phosphatase Total Protein Albumin Triglycerides 52 Cholesterol 228 LDL Cholesterol, Calc 165 HDL Cholesterol 53 Vitamin B12 246 Folate 7.6 TSH 1.22 Free T4 0.87 Salicylates Urine Opiates Screen Urine Fentanyl Screen Acetaminophen Ur Barbiturates Screen Ur Phencyclidine Scrn Ur Amphetamines Screen U Benzodiazepines Scrn Urine Cocaine Screen U Marijuana (THC) Screen Ethyl Alcohol COVID-19 (DANIAL) COVID-19 Clin Com Medications Medications Current Medications Acetaminophen (Acetaminophen 325 Mg Tablet) 650 mg PO Q6H PRN PRN Reason: Headache/Pain Mild Scale (1-3) Al Hydroxide/Mg Hydroxide (Magnesium Hydrox/Alum Hydrox 30 Ml Oral.Susp) 30 ml PO Q6H PRN PRN Reason: Heartburn/Nausea Cyanocobalamin (Cyanocobalamin (Vitamin B-12) 100 Mcg Tablet) 100 mcg PO DAILY [facility] Last Admin: 01/02/23 08:57 Dose: 100 mcg Hydroxyzine HCl (Hydroxyzine Hcl 25 Mg Tablet) 25 mg PO Q6H PRN PRN Reason: Anxiety Magnesium Hydroxide (Milk Of Magnesia 30 Ml Oral.Susp) 30 ml PO DAILY PRN PRN Reason: Constipation Sertraline HCl (Sertraline Hcl 50 Mg Tablet) 150 mg PO DAILY [facility] Last Admin: 01/02/23 08:57 Dose: 150 mg Trazodone HCl (Trazodone Hcl 50 Mg Tablet) 50 mg PO BEDTIME MRX1 PRN PRN Reason: Insomnia Allergies Allergies Allergy/AdvReac Type Severity Reaction Status Date / Time No Known Allergies Allergy Verified 12/31/22 11:46 Assessment & Plan Assessment & Plan (1) Suicidal ideation: Status: Acute Code(s): R45.851 - Suicidal ideations (2) CVA (cerebral vascular accident): Status: Acute Code(s): I63.9 - Cerebral infarction, unspecified (3) Major depression: Status: Acute Code(s): F32.9 - Major depressive disorder, single episode, unspecified Plan 42 yo female, with depression, SI, hiding a knife in her bedroom with plan to kill herself. Plan: Observe, Continue Sertraline Collateral contact ? Mood stabilizer augmentation 01/02: Continue current regimen and plans Reason for continued inpatient stay Substantial Risk for: harm to self Time Spent With Patient Time: Total time managing care of this patient today ____ minutes.
[2023-01-02 18:00] VITALS: BP 155/67; PULSE 85; RESP 18; TEMP 36.9; O2SAT 97
[2023-01-02] MEDS: traZODone HCL 50 MG TABLET PO (20:13)
[2023-01-03] MEDS: Sertraline HCL 50 MG TABLET 150 MG PO (08:07)
[2023-01-03] MEDS: Cyanocobalamin (Vitamin B-12) 100 MCG TABLET PO (08:07)
[2023-01-03 08:25] VITALS: BP 117/65; PULSE 80; RESP 16; TEMP 36.4; O2SAT 98
--- NOTE | 2023-01-03 09:21 | P.PNPSI_ITS ---
Subjective Subjective Date of Service: 01/03/23 Reason For Visit: Recurrent severe major depression Subjective Notes: Conditional Voluntary Healthcare Proxy: No Guardianship: No Medical Problems Affecting Mental Status: No Interim History: Patient was seen and discussed in rounds today. Records and plans were reviewed. She states that she does not like trazodone because of getting some ?hallucinatory? experiences with it. We decided to discontinue trazodone and in the past melatonin has worked well for her and I will initiate 3 mg at her request of starting low. She continues to be pleasant and cooperative but feels hopeless and helpless. No SI. She is also feeling lot of stress pertaining to her , having been laid off etc.. Eating adequately. No other changes were made today Medication Compliance: Yes Side effects from medications: No Attending Groups: Yes Review of Systems Review of Systems Yes all other systems are reviewed and are negative Reports behavioral changes Psychiatric: Reports anxiety, Reports behavioral changes, Reports depression, Reports difficulty concentrating, Reports hopelessness, Reports irritability, Reports anhedonia and Reports suicidal ideation Diagnostics Vital Signs (24Hr): Vital Signs - 24 hr 01/02/23 18:00 01/03/23 08:25 Temperature 98.4 F 97.6 F Pulse Rate 85 80 Respiratory Rate 18 16 Blood Pressure 155/67 H 117/65 Pulse Oximetry 97 98 Oxygen Delivery Method Room Air Room Air BMI result Body Mass Index 32.9 Labs 12/31/22 12:30 12/31/22 12:30 Medications Medications Current Medications Acetaminophen (Acetaminophen 325 Mg Tablet) 650 mg PO Q6H PRN PRN Reason: Headache/Pain Mild Scale (1-3) Al Hydroxide/Mg Hydroxide (Magnesium Hydrox/Alum Hydrox 30 Ml Oral.Susp) 30 ml PO Q6H PRN PRN Reason: Heartburn/Nausea Cyanocobalamin (Cyanocobalamin (Vitamin B-12) 100 Mcg Tablet) 100 mcg PO DAILY [facility] Last Admin: 01/03/23 08:07 Dose: 100 mcg Hydroxyzine HCl (Hydroxyzine Hcl 25 Mg Tablet) 25 mg PO Q6H PRN PRN Reason: Anxiety Magnesium Hydroxide (Milk Of Magnesia 30 Ml Oral.Susp) 30 ml PO DAILY PRN PRN Reason: Constipation Sertraline HCl (Sertraline Hcl 50 Mg Tablet) 150 mg PO DAILY [facility] Last Admin: 01/03/23 08:07 Dose: 150 mg Trazodone HCl (Trazodone Hcl 50 Mg Tablet) 50 mg PO BEDTIME MRX1 PRN PRN Reason: Insomnia Last Admin: 01/02/23 20:13 Dose: 50 mg Allergies Allergies Allergy/AdvReac Type Severity Reaction Status Date / Time No Known Allergies Allergy Verified 12/31/22 11:46 Assessment & Plan Assessment & Plan (1) Suicidal ideation: Status: Acute Code(s): R45.851 - Suicidal ideations (2) CVA (cerebral vascular accident): Status: Acute Code(s): I63.9 - Cerebral infarction, unspecified (3) Major depression: Status: Acute Code(s): F32.9 - Major depressive disorder, single episode, unspecified Plan 42 yo female, with depression, SI, hiding a knife in her bedroom with plan to kill herself. Plan: Observe, Continue Sertraline Collateral contact ? Mood stabilizer augmentation 01/02: Continue current regimen and plans 01/03: Continue current regimen and plans. Discontinue trazodone and initiate melatonin 3 mg Reason for continued inpatient stay Substantial Risk for: med/psych decompensation Time Spent With Patient Time: Total time managing care of this patient today ____ minutes.
[2023-01-03 18:00] VITALS: BP 145/85; PULSE 80; RESP 18; TEMP 36.5; O2SAT 100
[2023-01-03] MEDS: Melatonin 3 MG TABLET PO (21:20)
[2023-01-04 09:09] VITALS: BP 136/78; PULSE 84; RESP 14; TEMP 36.6; O2SAT 99
[2023-01-04] MEDS: Sertraline HCL 50 MG TABLET 150 MG PO (09:10)
[2023-01-04] MEDS: Cyanocobalamin (Vitamin B-12) 100 MCG TABLET PO (09:10)
--- NOTE | 2023-01-04 15:24 | HO.PSYCHPN ---
Subjective Subjective Date of Service: 01/04/23 Reason For Visit: Recurrent severe major depression Interim History: Met with patient; discussed with team Patient reports she is doing much better. Retracted her 3 day notice. Says SI fully resolved. Still has some anxiety but feels that medications are adequate and does not want changes. Mental Status Exam Mental Status Exam Narrative: Pt is alert and oriented; behavior is cooperative, friendly and calm; patient is not in distress; dressed in casual attire with adequate hygiene; mood is described as better and affect congruent; eye contact appropriate; Speech is normal rate, volume and prosody and not pressured; no psychomotor agitation/retardation present; thought process is organized and goal directed; Thought content is on tx; otherwise pertinent to relevant topics and without any delusional content, paranoid ideations or grandiosity; denies any SI/HI. There is no evidence of perceptual disturbance. Patients insight and judgment appear intact. Diagnostics Vital Signs (24Hr): Vital Signs - 24 hr 01/03/23 18:00 01/04/23 09:09 Temperature 97.7 F 97.9 F Pulse Rate 80 84 Respiratory Rate 18 14 Blood Pressure 145/85 H 136/78 Pulse Oximetry 100 99 Oxygen Delivery Method Room Air BMI result Body Mass Index 32.9 Labs 12/31/22 12:30 12/31/22 12:30 Medications Medications Current Medications Acetaminophen (Acetaminophen 325 Mg Tablet) 650 mg PO Q6H PRN PRN Reason: Headache/Pain Mild Scale (1-3) Al Hydroxide/Mg Hydroxide (Magnesium Hydrox/Alum Hydrox 30 Ml Oral.Susp) 30 ml PO Q6H PRN PRN Reason: Heartburn/Nausea Cyanocobalamin (Cyanocobalamin (Vitamin B-12) 100 Mcg Tablet) 100 mcg PO DAILY [facility] Last Admin: 01/04/23 09:10 Dose: 100 mcg Hydroxyzine HCl (Hydroxyzine Hcl 25 Mg Tablet) 25 mg PO Q6H PRN PRN Reason: Anxiety Magnesium Hydroxide (Milk Of Magnesia 30 Ml Oral.Susp) 30 ml PO DAILY PRN PRN Reason: Constipation Melatonin (Melatonin 3 Mg Tablet) 3 mg PO BEDTIME [facility] Last Admin: 01/03/23 21:20 Dose: 3 mg Sertraline HCl (Sertraline Hcl 50 Mg Tablet) 150 mg PO DAILY [facility] Last Admin: 01/04/23 09:10 Dose: 150 mg Allergies Allergies Allergy/AdvReac Type Severity Reaction Status Date / Time trazodone AdvReac Confusion Verified 01/04/23 10:12 Assessment & Plan Assessment & Plan (1) Suicidal ideation: Status: Acute Code(s): R45.851 - Suicidal ideations (2) CVA (cerebral vascular accident): Status: Acute Code(s): I63.9 - Cerebral infarction, unspecified (3) Major depression: Status: Acute Code(s): F32.9 - Major depressive disorder, single episode, unspecified Plan 42 yo female, with depression, SI, hiding a knife in her bedroom with plan to kill herself. hospital course: 01/02: Continue current regimen and plans 01/03: Continue current regimen and plans. Discontinue trazodone and initiate melatonin 3 mg 01/04 patient feeling better; retracted 3 day notice; continue current treatment plan Plan: CV (retracted 3 day) Continue Sertraline Collateral contact ? Mood stabilizer augmentation Patient educated on: diagnosis and medication risk/benefits Informed Consent: understands Reason for continued inpatient stay Substantial Risk for: rapid decompensation Time Spent With Patient Time: Total time managing care of this patient today ____ minutes.
--- NOTE | 2023-01-04 16:17 | PC.NURSE ---
Pt retracted three day notice on 01/04/2023.
[2023-01-04 16:28] VITALS: BP 130/75; PULSE 60; TEMP 35.9
[2023-01-04] MEDS: Melatonin 3 MG TABLET PO (20:01)
[2023-01-05] MEDS: Sertraline HCL 50 MG TABLET 150 MG PO (08:32)
[2023-01-05] MEDS: Cyanocobalamin (Vitamin B-12) 100 MCG TABLET PO (08:33)
[2023-01-05 08:53] VITALS: BP 129/85; PULSE 74; RESP 16; TEMP 36.5; O2SAT 97
--- NOTE | 2023-01-05 16:27 | P.PNPSI_ITS ---
Subjective Subjective Date of Service: 01/05/23 Reason For Visit: Recurrent severe major depression Subjective Notes: Conditional Voluntary Healthcare Proxy: No Guardianship: No Medical Problems Affecting Mental Status: No Interim History: Reports she finds the milieu helpful. Met with pt and , Cj. Cj believes pt has been manic in the past and is able to cite examples. Incident which precipitated admission occurred right after Sertraline was increased. Both reviewed 2019 suicide attempt/SIBS and difficulties they experienced in the assessment. Review of treatment plan with both. Will trial Lamictal. Will schedule family meeting with and daughter for later this week (daughter is age 13- discussed permission to have her on the unit for a meeting with DAPHNE Jansen APRN who authorized the visit. Medication Compliance: Yes Side effects from medications: No Attending Groups: Yes Review of Systems Acute medical concerns: No Medical Review of Systems: unchanged Mental Status Exam Mental Status Exam Patient Appearance: Appropriate Patient Orientation: Person, Place, Time and Situation Level of Consciousness: Alert Patient Behavior: Appropriate, Talkative, Cooperative, Anxious and Good Eye Contact Mood Description: Anxious and Apprehensive Affect Description: Anxious and Apprehensive Patient Cognition Impaired: No Ability to Follow Directions: Good Speech Pattern: Spontaneous Speech Memory Description: Intact Hallucinations: None Delusions: Not Present Thought Process: Rumination Thought Content: positive for Perseveration Depressive Symptoms: Increased Anxiety Judgement: Good Diagnostics Vital Signs (24Hr): Vital Signs - 24 hr 01/04/23 16:28 01/05/23 08:53 Temperature 96.7 F L 97.7 F Pulse Rate 60 74 Respiratory Rate 16 Blood Pressure 130/75 129/85 Pulse Oximetry 97 Oxygen Delivery Method Room Air BMI result Body Mass Index 32.9 Labs 12/31/22 12:30 12/31/22 12:30 Medications Medications Current Medications Acetaminophen (Acetaminophen 325 Mg Tablet) 650 mg PO Q6H PRN PRN Reason: Headache/Pain Mild Scale (1-3) Al Hydroxide/Mg Hydroxide (Magnesium Hydrox/Alum Hydrox 30 Ml Oral.Susp) 30 ml PO Q6H PRN PRN Reason: Heartburn/Nausea Cyanocobalamin (Cyanocobalamin (Vitamin B-12) 100 Mcg Tablet) 100 mcg PO DAILY [facility] Last Admin: 01/05/23 08:33 Dose: 100 mcg Hydroxyzine HCl (Hydroxyzine Hcl 25 Mg Tablet) 25 mg PO Q6H PRN PRN Reason: Anxiety Ibuprofen (Ibuprofen 400 Mg Tablet) 400 mg PO Q6H PRN PRN Reason: pain mild Lamotrigine (Lamotrigine 25 Mg Tablet) 25 mg PO BEDTIME [facility] Magnesium Hydroxide (Milk Of Magnesia 30 Ml Oral.Susp) 30 ml PO DAILY PRN PRN Reason: Constipation Melatonin (Melatonin 3 Mg Tablet) 3 mg PO BEDTIME [facility] Last Admin: 01/04/23 20:01 Dose: 3 mg Sertraline HCl (Sertraline Hcl 50 Mg Tablet) 150 mg PO DAILY [facility] Last Admin: 01/05/23 08:32 Dose: 150 mg Allergies Allergies Allergy/AdvReac Type Severity Reaction Status Date / Time trazodone AdvReac Confusion Verified 01/04/23 10:12 Assessment & Plan Assessment & Plan (1) Suicidal ideation: Status: Acute Code(s): R45.851 - Suicidal ideations (2) CVA (cerebral vascular accident): Status: Acute Code(s): I63.9 - Cerebral infarction, unspecified (3) Major depression: Status: Acute Code(s): F32.9 - Major depressive disorder, single episode, unspecified Plan 42 yo female, with depression, SI, hiding a knife in her bedroom with plan to kill herself. hospital course: 01/02: Continue current regimen and plans 01/03: Continue current regimen and plans. Discontinue trazodone and initiate melatonin 3 mg 01/04 patient feeling better; retracted 3 day notice; continue current treatment plan 01/05: Lamictal 25 mg HS Family meeting with , daughter later this week Continue milieu involvement. Plan: CV (retracted 3 day) Continue Sertraline Collateral contact ? Mood stabilizer augmentation Patient educated on: medication risk/benefits and therapeutic strategies Informed Consent: understands and further education needed Reason for continued inpatient stay Substantial Risk for: harm to self and rapid decompensation Time Spent With Patient Time: Total time managing care of this patient today ____ minutes.
[2023-01-05 18:10] VITALS: BP 135/61; PULSE 71; TEMP 36.4
[2023-01-05] MEDS: lamoTRIgine 25 MG TABLET PO (20:14)
[2023-01-05] MEDS: Melatonin 3 MG TABLET PO (20:14)
[2023-01-06] MEDS: Cyanocobalamin (Vitamin B-12) 100 MCG TABLET PO (09:13)
[2023-01-06] MEDS: Sertraline HCL 50 MG TABLET 150 MG PO (09:13)
[2023-01-06 11:21] VITALS: BP 121/72; PULSE 78; RESP 16; TEMP 36.4; O2SAT 98
--- NOTE | 2023-01-06 16:50 | P.PNPSI_ITS ---
Subjective Subjective Date of Service: 01/06/23 Reason For Visit: Recurrent severe major depression Subjective Notes: Conditional Voluntary Healthcare Proxy: No Guardianship: No Medical Problems Affecting Mental Status: No Interim History: Discussed planning for meeting with daughterVilma for 01/07 and range of subjects to cover. Further discussed Bipolar Disorder, pt has a family history- father had this and suicided. Tolerating Lamictal, finding milieu to be a support and is learning she reports. Discussed potential supports for home and what she feels would be helpful. Medication Compliance: Yes Side effects from medications: No Attending Groups: Yes Review of Systems Acute medical concerns: No Medical Review of Systems: unchanged Mental Status Exam Mental Status Exam Patient Appearance: Appropriate Patient Orientation: Person, Place, Time and Situation Level of Consciousness: Alert Patient Behavior: Appropriate, Talkative, Cooperative, Anxious and Good Eye Contact Mood Description: Anxious and Apprehensive Affect Description: Anxious and Apprehensive Patient Cognition Impaired: No Ability to Follow Directions: Good Speech Pattern: Spontaneous Speech Memory Description: Intact Hallucinations: None Delusions: Not Present Thought Process: Rumination Thought Content: positive for Perseveration Depressive Symptoms: Increased Anxiety Judgement: Good Diagnostics Vital Signs (24Hr): Vital Signs - 24 hr 01/05/23 18:10 01/06/23 11:21 Temperature 97.6 F 97.6 F Pulse Rate 71 78 Respiratory Rate 16 Blood Pressure 135/61 121/72 Pulse Oximetry 98 Oxygen Delivery Method Room Air BMI result Body Mass Index 32.9 Labs 12/31/22 12:30 12/31/22 12:30 Medications Medications Current Medications Acetaminophen (Acetaminophen 325 Mg Tablet) 650 mg PO Q6H PRN PRN Reason: Headache/Pain Mild Scale (1-3) Al Hydroxide/Mg Hydroxide (Magnesium Hydrox/Alum Hydrox 30 Ml Oral.Susp) 30 ml PO Q6H PRN PRN Reason: Heartburn/Nausea Cyanocobalamin (Cyanocobalamin (Vitamin B-12) 100 Mcg Tablet) 100 mcg PO DAILY [facility] Last Admin: 01/06/23 09:13 Dose: 100 mcg Hydroxyzine HCl (Hydroxyzine Hcl 25 Mg Tablet) 25 mg PO Q6H PRN PRN Reason: Anxiety Ibuprofen (Ibuprofen 400 Mg Tablet) 400 mg PO Q6H PRN PRN Reason: pain mild Lamotrigine (Lamotrigine 25 Mg Tablet) 25 mg PO BEDTIME [facility] Last Admin: 01/05/23 20:14 Dose: 25 mg Magnesium Hydroxide (Milk Of Magnesia 30 Ml Oral.Susp) 30 ml PO DAILY PRN PRN Reason: Constipation Melatonin (Melatonin 3 Mg Tablet) 3 mg PO BEDTIME [facility] Last Admin: 01/05/23 20:14 Dose: 3 mg Sertraline HCl (Sertraline Hcl 50 Mg Tablet) 150 mg PO DAILY [facility] Last Admin: 01/06/23 09:13 Dose: 150 mg Allergies Allergies Allergy/AdvReac Type Severity Reaction Status Date / Time trazodone AdvReac Confusion Verified 01/04/23 10:12 Assessment & Plan Assessment & Plan (1) Suicidal ideation: Status: Acute Code(s): R45.851 - Suicidal ideations (2) CVA (cerebral vascular accident): Status: Acute Code(s): I63.9 - Cerebral infarction, unspecified (3) Major depression: Status: Acute Code(s): F32.9 - Major depressive disorder, single episode, unspecified Plan 42 yo female, with depression, SI, hiding a knife in her bedroom with plan to kill herself. hospital course: 01/02: Continue current regimen and plans 01/03: Continue current regimen and plans. Discontinue trazodone and initiate melatonin 3 mg 01/04 patient feeling better; retracted 3 day notice; continue current treatment plan 01/06/23- Family meeting 01/07. Continue Lamictal Pt interested in PHP post discharge. Plan: CV (retracted 3 day) Continue Sertraline Collateral contact ? Mood stabilizer augmentation Patient educated on: therapeutic strategies Informed Consent: understands Reason for continued inpatient stay Substantial Risk for: harm to self and rapid decompensation Time Spent With Patient Time: Total time managing care of this patient today ____ minutes.
[2023-01-06 18:12] VITALS: BP 138/90; PULSE 75; TEMP 36.6
[2023-01-06] MEDS: Melatonin 3 MG TABLET PO (20:32)
[2023-01-06] MEDS: lamoTRIgine 25 MG TABLET PO (20:32)
[2023-01-07 07:00] VITALS: BMI 29.7
[2023-01-07] MEDS: Sertraline HCL 50 MG TABLET 150 MG PO (08:08)
[2023-01-07] MEDS: Cyanocobalamin (Vitamin B-12) 100 MCG TABLET PO (08:08)
[2023-01-07 08:28] VITALS: BP 125/66; PULSE 70; RESP 16; TEMP 36.3; O2SAT 96
[2023-01-07 18:00] VITALS: BP 132/79; PULSE 68; RESP 16; TEMP 36.4; O2SAT 96
--- NOTE | 2023-01-07 18:01 | HO.PSYCHPN ---
Subjective Subjective Date of Service: 01/07/23 Reason For Visit: Recurrent severe major depression Subjective Notes: Conditional Voluntary Healthcare Proxy: No Guardianship: No Medical Problems Affecting Mental Status: No Interim History: Met with pt, , daughter to discuss events leading to admission. Daughter is shy, but forthcoming, expressed concerns, questions with encouragement. Pt, , able to respond to her and offer review of treatment plan and pt able to explain frustrations precipitating admission. Daughter wanting to end the meeting early as she has plans with friends and needs to have her father transport. Reviewed with pt after the meeting. Discussed supports, interventions which may assist at home. Pt interested in PHP. asks that we assess PHP options at [facility] and [facility] in addition to [facility] [place]. Ongoing discussion of sx of bipolar disorder. Pt given handouts to review. Participating in milieu. Medication Compliance: Yes Side effects from medications: Yes (reports tolerating meds, but feeling different, calmer on Lamictal 25 mg) Attending Groups: Yes Review of Systems Acute medical concerns: No Medical Review of Systems: unchanged Mental Status Exam Mental Status Exam Patient Appearance: Appropriate Patient Orientation: Person, Place, Time and Situation Level of Consciousness: Alert Patient Behavior: Appropriate, Talkative, Cooperative, Anxious and Good Eye Contact Mood Description: Anxious and Apprehensive Affect Description: Anxious and Apprehensive Patient Cognition Impaired: No Ability to Follow Directions: Good Speech Pattern: Spontaneous Speech Memory Description: Intact Hallucinations: None Delusions: Not Present Thought Process: Rumination Thought Content: positive for Perseveration Depressive Symptoms: Increased Anxiety Judgement: Good Diagnostics Vital Signs (24Hr): Vital Signs - 24 hr 01/06/23 18:12 01/07/23 08:28 Temperature 98 F 97.4 F Pulse Rate 75 70 Respiratory Rate 16 Blood Pressure 138/90 H 125/66 Pulse Oximetry 96 Oxygen Delivery Method Room Air BMI result Body Mass Index 29.7 Labs 12/31/22 12:30 12/31/22 12:30 Medications Medications Current Medications Acetaminophen (Acetaminophen 325 Mg Tablet) 650 mg PO Q6H PRN PRN Reason: Headache/Pain Mild Scale (1-3) Al Hydroxide/Mg Hydroxide (Magnesium Hydrox/Alum Hydrox 30 Ml Oral.Susp) 30 ml PO Q6H PRN PRN Reason: Heartburn/Nausea Cyanocobalamin (Cyanocobalamin (Vitamin B-12) 100 Mcg Tablet) 100 mcg PO DAILY [facility] Last Admin: 01/07/23 08:08 Dose: 100 mcg Hydroxyzine HCl (Hydroxyzine Hcl 25 Mg Tablet) 25 mg PO Q6H PRN PRN Reason: Anxiety Ibuprofen (Ibuprofen 400 Mg Tablet) 400 mg PO Q6H PRN PRN Reason: pain mild Lamotrigine (Lamotrigine 25 Mg Tablet) 25 mg PO BEDTIME [facility] Last Admin: 01/06/23 20:32 Dose: 25 mg Magnesium Hydroxide (Milk Of Magnesia 30 Ml Oral.Susp) 30 ml PO DAILY PRN PRN Reason: Constipation Melatonin (Melatonin 3 Mg Tablet) 3 mg PO BEDTIME [facility] Last Admin: 01/06/23 20:32 Dose: 3 mg Sertraline HCl (Sertraline Hcl 50 Mg Tablet) 150 mg PO DAILY [facility] Last Admin: 01/07/23 08:08 Dose: 150 mg Allergies Allergies Allergy/AdvReac Type Severity Reaction Status Date / Time trazodone AdvReac Confusion Verified 01/04/23 10:12 Assessment & Plan Assessment & Plan (1) Suicidal ideation: Status: Acute Code(s): R45.851 - Suicidal ideations (2) CVA (cerebral vascular accident): Status: Acute Code(s): I63.9 - Cerebral infarction, unspecified (3) Major depression: Status: Acute Code(s): F32.9 - Major depressive disorder, single episode, unspecified Plan 42 yo female, with depression, SI, hiding a knife in her bedroom with plan to kill herself. hospital course: 01/02: Continue current regimen and plans 01/03: Continue current regimen and plans. Discontinue trazodone and initiate melatonin 3 mg 01/04 patient feeling better; retracted 3 day notice; continue current treatment plan 01/06/23- Family meeting 01/07. Continue Lamictal Pt interested in PHP post discharge. 01/07/23- Continue Lamictal PHP referrals Plan: CV (retracted 3 day) Continue Sertraline Collateral contact ? Mood stabilizer augmentation Patient educated on: medication risk/benefits and therapeutic strategies Informed Consent: understands Reason for continued inpatient stay Substantial Risk for: harm to self and rapid decompensation Time Spent With Patient Time: Total time managing care of this patient today ____ minutes.
[2023-01-07] MEDS: lamoTRIgine 25 MG TABLET PO (19:56)
[2023-01-07] MEDS: Melatonin 3 MG TABLET PO (19:56)
[2023-01-08 06:00] VITALS: BP 121/74; PULSE 85; RESP 14; TEMP 36.6; O2SAT 99
[2023-01-08] MEDS: Sertraline HCL 50 MG TABLET 150 MG PO (09:45)
[2023-01-08] MEDS: Cyanocobalamin (Vitamin B-12) 100 MCG TABLET PO (09:45)
--- NOTE | 2023-01-08 15:14 | P.PNPSI_ITS ---
Subjective Subjective Date of Service: 01/08/23 Reason For Visit: Recurrent severe major depression Subjective Notes: Conditional Voluntary Healthcare Proxy: No Guardianship: No Medical Problems Affecting Mental Status: No Interim History: Pt reports feelin improved. Tolerating Lamictal with less SE today. Discussed discharge for next week, pt agrees and is wanting to begin PHP TC with pt and . wanting assurances pt will be OK at home. She was able to reassure him. reports their daughter would like to meet with tw privately on 01/11 to discuss concerns. Will schedule. is anxious about pt discharging. Medication Compliance: Yes Side effects from medications: No Attending Groups: Yes Review of Systems Acute medical concerns: No Medical Review of Systems: unchanged Mental Status Exam Mental Status Exam Patient Appearance: Appropriate Patient Orientation: Person, Place, Time and Situation Level of Consciousness: Alert Patient Behavior: Appropriate, Talkative, Cooperative, Anxious and Good Eye Contact Mood Description: Anxious and Apprehensive Affect Description: Anxious and Apprehensive Patient Cognition Impaired: No Ability to Follow Directions: Good Speech Pattern: Spontaneous Speech Memory Description: Intact Hallucinations: None Delusions: Not Present Thought Process: Rumination Thought Content: positive for Perseveration Depressive Symptoms: Increased Anxiety Judgement: Good Diagnostics Vital Signs (24Hr): Vital Signs - 24 hr 01/07/23 18:00 01/08/23 06:00 Temperature 97.6 F 98 F Pulse Rate 68 85 Respiratory Rate 16 14 Blood Pressure 132/79 121/74 Pulse Oximetry 96 99 Oxygen Delivery Method Room Air Room Air BMI result Body Mass Index 29.7 Labs 12/31/22 12:30 12/31/22 12:30 Medications Medications Current Medications Acetaminophen (Acetaminophen 325 Mg Tablet) 650 mg PO Q6H PRN PRN Reason: Headache/Pain Mild Scale (1-3) Al Hydroxide/Mg Hydroxide (Magnesium Hydrox/Alum Hydrox 30 Ml Oral.Susp) 30 ml PO Q6H PRN PRN Reason: Heartburn/Nausea Cyanocobalamin (Cyanocobalamin (Vitamin B-12) 100 Mcg Tablet) 100 mcg PO DAILY [facility] Last Admin: 01/08/23 09:45 Dose: 100 mcg Hydroxyzine HCl (Hydroxyzine Hcl 25 Mg Tablet) 25 mg PO Q6H PRN PRN Reason: Anxiety Ibuprofen (Ibuprofen 400 Mg Tablet) 400 mg PO Q6H PRN PRN Reason: pain mild Lamotrigine (Lamotrigine 25 Mg Tablet) 25 mg PO BEDTIME [facility] Last Admin: 01/07/23 19:56 Dose: 25 mg Magnesium Hydroxide (Milk Of Magnesia 30 Ml Oral.Susp) 30 ml PO DAILY PRN PRN Reason: Constipation Melatonin (Melatonin 3 Mg Tablet) 3 mg PO BEDTIME [facility] Last Admin: 01/07/23 19:56 Dose: 3 mg Sertraline HCl (Sertraline Hcl 50 Mg Tablet) 150 mg PO DAILY [facility] Last Admin: 01/08/23 09:45 Dose: 150 mg Allergies Allergies Allergy/AdvReac Type Severity Reaction Status Date / Time trazodone AdvReac Confusion Verified 01/04/23 10:12 Assessment & Plan Assessment & Plan (1) Suicidal ideation: Status: Acute Code(s): R45.851 - Suicidal ideations (2) CVA (cerebral vascular accident): Status: Acute Code(s): I63.9 - Cerebral infarction, unspecified (3) Major depression: Status: Acute Code(s): F32.9 - Major depressive disorder, single episode, unspecified Plan 42 yo female, with depression, SI, hiding a knife in her bedroom with plan to kill herself. hospital course: 01/02: Continue current regimen and plans 01/03: Continue current regimen and plans. Discontinue trazodone and initiate melatonin 3 mg 01/04 patient feeling better; retracted 3 day notice; continue current treatment plan 01/06/23- Family meeting 01/07. Continue Lamictal Pt interested in PHP post discharge. 01/07/23- Continue Lamictal PHP referrals 01/08/23 Continue current regime and plan. Plan: CV (retracted 3 day) Continue Sertraline Collateral contact ? Mood stabilizer augmentation Patient educated on: therapeutic strategies Informed Consent: understands Reason for continued inpatient stay Substantial Risk for: harm to self and rapid decompensation Time Spent With Patient Time: Total time managing care of this patient today ____ minutes.
[2023-01-08 18:00] VITALS: BP 128/79; PULSE 101; RESP 16; TEMP 36.6; O2SAT 98
[2023-01-08] MEDS: Melatonin 3 MG TABLET PO (21:08)
[2023-01-08] MEDS: lamoTRIgine 25 MG TABLET PO (21:08)
[2023-01-09] MEDS: Sertraline HCL 50 MG TABLET 150 MG PO (08:08)
[2023-01-09] MEDS: Cyanocobalamin (Vitamin B-12) 100 MCG TABLET PO (08:08)
[2023-01-09 08:50] VITALS: BP 115/70; PULSE 71; RESP 18; TEMP 36.6; O2SAT 97
[2023-01-09 18:17] VITALS: BP 137/77; PULSE 73; TEMP 36.6
[2023-01-09] MEDS: Melatonin 3 MG TABLET PO (20:28)
[2023-01-09] MEDS: lamoTRIgine 25 MG TABLET PO (20:28)
--- NOTE | 2023-01-09 21:23 | HO.PSYCHPN ---
Subjective Subjective Date of Service: 01/09/23 Reason For Visit: Recurrent severe major depression Interim History: Seen and discussed with RN. She continues to voice improvement in mood and anxiety. Feels medications and her stay have been very helpful. She is tolerating her medications well. Sleep is good. No SI. Feels ready for DC soon. Review of Systems Review of Systems depression, anxiety, knife to neck. Yes all other systems are reviewed and are negative Reports behavioral changes Psychiatric: Reports anxiety, Reports behavioral changes, Reports depression, Reports difficulty concentrating, Reports hopelessness, Reports irritability, Reports anhedonia and Reports suicidal ideation Mental Status Exam Mental Status Exam Narrative: Pt is alert and oriented; behavior is cooperative, friendly and calm; patient is not in distress; dressed in casual attire with adequate hygiene; mood is described as better and affect congruent; eye contact appropriate; Speech is normal rate, volume and prosody and not pressured; no psychomotor agitation/retardation present; thought process is organized and goal directed; Thought content is on tx; otherwise pertinent to relevant topics and without any delusional content, paranoid ideations or grandiosity; denies any SI/HI. There is no evidence of perceptual disturbance. Patients insight and judgment appear intact. Patient Appearance: Appropriate Patient Orientation: Person, Place, Time and Situation Level of Consciousness: Alert Patient Behavior: Appropriate, Talkative, Cooperative, Anxious and Good Eye Contact Mood Description: Anxious and Apprehensive Affect Description: Anxious and Apprehensive Patient Cognition Impaired: No Ability to Follow Directions: Good Speech Pattern: Spontaneous Speech Memory Description: Intact Diagnostics Vital Signs (24Hr): Vital Signs - 24 hr 01/09/23 08:50 01/09/23 18:17 Temperature 97.8 F 97.8 F Pulse Rate 71 73 Respiratory Rate 18 Blood Pressure 115/70 137/77 Pulse Oximetry 97 Oxygen Delivery Method Room Air BMI result Body Mass Index 29.7 Labs 12/31/22 12:30 12/31/22 12:30 Medications Medications Current Medications Acetaminophen (Acetaminophen 325 Mg Tablet) 650 mg PO Q6H PRN PRN Reason: Headache/Pain Mild Scale (1-3) Al Hydroxide/Mg Hydroxide (Magnesium Hydrox/Alum Hydrox 30 Ml Oral.Susp) 30 ml PO Q6H PRN PRN Reason: Heartburn/Nausea Cyanocobalamin (Cyanocobalamin (Vitamin B-12) 100 Mcg Tablet) 100 mcg PO DAILY [facility] Last Admin: 01/09/23 08:08 Dose: 100 mcg Hydroxyzine HCl (Hydroxyzine Hcl 25 Mg Tablet) 25 mg PO Q6H PRN PRN Reason: Anxiety Ibuprofen (Ibuprofen 400 Mg Tablet) 400 mg PO Q6H PRN PRN Reason: pain mild Lamotrigine (Lamotrigine 25 Mg Tablet) 25 mg PO BEDTIME [facility] Last Admin: 01/09/23 20:28 Dose: 25 mg Magnesium Hydroxide (Milk Of Magnesia 30 Ml Oral.Susp) 30 ml PO DAILY PRN PRN Reason: Constipation Melatonin (Melatonin 3 Mg Tablet) 3 mg PO BEDTIME [facility] Last Admin: 01/09/23 20:28 Dose: 3 mg Sertraline HCl (Sertraline Hcl 50 Mg Tablet) 150 mg PO DAILY [facility] Last Admin: 01/09/23 08:08 Dose: 150 mg Allergies Allergies Allergy/AdvReac Type Severity Reaction Status Date / Time trazodone AdvReac Confusion Verified 01/04/23 10:12 Assessment & Plan Assessment & Plan (1) Suicidal ideation: Status: Acute Code(s): R45.851 - Suicidal ideations (2) CVA (cerebral vascular accident): Status: Acute Code(s): I63.9 - Cerebral infarction, unspecified (3) Major depression: Status: Acute Code(s): F32.9 - Major depressive disorder, single episode, unspecified Plan 42 yo female, with depression, SI, hiding a knife in her bedroom with plan to kill herself. hospital course: 01/02: Continue current regimen and plans 01/03: Continue current regimen and plans. Discontinue trazodone and initiate melatonin 3 mg 01/04 patient feeling better; retracted 3 day notice; continue current treatment plan 01/06/23- Family meeting 01/07. Continue Lamictal Pt interested in PHP post discharge. 01/07/23- Continue Lamictal PHP referrals 01/08/23 Continue current regime and plan. 01/09/23 Continue current regime and plan. Plan: CV (retracted 3 day) Continue Sertraline Collateral contact ? Mood stabilizer augmentation Reason for continued inpatient stay Substantial Risk for: harm to self and rapid decompensation Time Spent With Patient Time: Total time managing care of this patient today ____ minutes.
[2023-01-10 06:00] VITALS: BP 127/73; PULSE 76; RESP 14; TEMP 36.6; O2SAT 98
[2023-01-10] MEDS: Cyanocobalamin (Vitamin B-12) 100 MCG TABLET PO (08:15)
[2023-01-10] MEDS: Sertraline HCL 50 MG TABLET 150 MG PO (08:15)
--- NOTE | 2023-01-10 09:16 | P.PNPSI_ITS ---
Subjective Subjective Date of Service: 01/10/23 Reason For Visit: Recurrent severe major depression Interim History: Seen and discussed with RN. She continues improvement in mood and anxiety. Medications and her stay have been very helpful. She is tolerating her medications well. Sleep is good. No SI. Feels ready for DC soon. Review of Systems Review of Systems depression, anxiety, knife to neck. Yes all other systems are reviewed and are negative Reports behavioral changes Psychiatric: Reports anxiety, Reports behavioral changes, Reports depression, Reports difficulty concentrating, Reports hopelessness, Reports irritability, Reports anhedonia and Reports suicidal ideation Mental Status Exam Mental Status Exam Narrative: Pt is alert and oriented; behavior is cooperative, friendly and calm; patient is not in distress; dressed in casual attire with adequate hygiene; mood is described as better and affect congruent; eye contact appropriate; Speech is normal rate, volume and prosody and not pressured; no psychomotor agitation/retardation present; thought process is organized and goal directed; Thought content is on tx; otherwise pertinent to relevant topics and without any delusional content, paranoid ideations or grandiosity; denies any SI/HI. There i s no evidence of perceptual disturbance. Patients insight and judgment appear intact. Patient Appearance: Appropriate Patient Orientation: Person, Place, Time and Situation Level of Consciousness: Alert Patient Behavior: Appropriate, Talkative, Cooperative, Anxious and Good Eye Contact Mood Description: Anxious and Apprehensive Affect Description: Anxious and Apprehensive Patient Cognition Impaired: No Ability to Follow Directions: Good Speech Pattern: Spontaneous Speech Memory Description: Intact Diagnostics Vital Signs (24Hr): Vital Signs - 24 hr 01/09/23 18:17 01/10/23 06:00 Temperature 97.8 F 97.8 F Pulse Rate 73 76 Respiratory Rate 14 Blood Pressure 137/77 127/73 Pulse Oximetry 98 Oxygen Delivery Method Room Air BMI result Body Mass Index 29.7 Labs 12/31/22 12:30 12/31/22 12:30 Medications Medications Current Medications Acetaminophen (Acetaminophen 325 Mg Tablet) 650 mg PO Q6H PRN PRN Reason: Headache/Pain Mild Scale (1-3) Al Hydroxide/Mg Hydroxide (Magnesium Hydrox/Alum Hydrox 30 Ml Oral.Susp) 30 ml PO Q6H PRN PRN Reason: Heartburn/Nausea Cyanocobalamin (Cyanocobalamin (Vitamin B-12) 100 Mcg Tablet) 100 mcg PO DAILY [facility] Last Admin: 01/10/23 08:15 Dose: 100 mcg Hydroxyzine HCl (Hydroxyzine Hcl 25 Mg Tablet) 25 mg PO Q6H PRN PRN Reason: Anxiety Ibuprofen (Ibuprofen 400 Mg Tablet) 400 mg PO Q6H PRN PRN Reason: pain mild Lamotrigine (Lamotrigine 25 Mg Tablet) 25 mg PO BEDTIME [facility] Last Admin: 01/09/23 20:28 Dose: 25 mg Magnesium Hydroxide (Milk Of Magnesia 30 Ml Oral.Susp) 30 ml PO DAILY PRN PRN Reason: Constipation Melatonin (Melatonin 3 Mg Tablet) 3 mg PO BEDTIME [facility] Last Admin: 01/09/23 20:28 Dose: 3 mg Sertraline HCl (Sertraline Hcl 50 Mg Tablet) 150 mg PO DAILY [facility] Last Admin: 01/10/23 08:15 Dose: 150 mg Allergies Allergies Allergy/AdvReac Type Severity Reaction Status Date / Time trazodone AdvReac Confusion Verified 01/04/23 10:12 Assessment & Plan Assessment & Plan (1) Suicidal ideation: Status: Acute Code(s): R45.851 - Suicidal ideations (2) CVA (cerebral vascular accident): Status: Acute Code(s): I63.9 - Cerebral infarction, unspecified (3) Major depression: Status: Acute Code(s): F32.9 - Major depressive disorder, single episode, unspecified Plan 42 yo female, with depression, SI, hiding a knife in her bedroom with plan to kill herself. hospital course: 01/02: Continue current regimen and plans 01/03: Continue current regimen and plans. Discontinue trazodone and initiate melatonin 3 mg 01/04 patient feeling better; retracted 3 day notice; continue current treatment plan 01/06/23- Family meeting 01/07. Continue Lamictal Pt interested in PHP post discharge. 01/07/23- Continue Lamictal PHP referrals 01/08/23 Continue current regime and plan. 01/09/23 Continue current regime and plan. : Continue current plan. Plan: CV (retracted 3 day) Continue Sertraline Collateral contact ? Mood stabilizer augmentation Reason for continued inpatient stay Substantial Risk for: harm to self and rapid decompensation Time Spent With Patient Time: Total time managing care of this patient today ____ minutes.
[2023-01-10 15:36] VITALS: BP 122/61; PULSE 78; TEMP 36.1
[2023-01-10] MEDS: Melatonin 3 MG TABLET PO (20:16)
[2023-01-10] MEDS: lamoTRIgine 25 MG TABLET PO (20:16)
[2023-01-11] MEDS: Cyanocobalamin (Vitamin B-12) 100 MCG TABLET PO (07:53)
[2023-01-11] MEDS: Sertraline HCL 50 MG TABLET 150 MG PO (07:53)
[2023-01-11 08:04] VITALS: BP 132/88; PULSE 75; RESP 18; TEMP 37; O2SAT 95
--- NOTE | 2023-01-11 17:03 | P.PNPSI_ITS ---
Subjective Subjective Date of Service: 01/11/23 Reason For Visit: Recurrent severe major depression Subjective Notes: Conditional Voluntary Healthcare Proxy: No Guardianship: No Medical Problems Affecting Mental Status: No Interim History: Continues to feel improved. Preparing for discharge and transition to PHP. Team reports is very worried about pt coming home-message left. Discussed with Maria Del Carmen, has not communicated his concerns to her, will meet /. Review of meds, review of literature on bipolar disorder, pt making some connections to sx her father had prior to his suicide, discussed genetic components, future treatment goals, expectations, management of symptoms. Pt reflective on her actions prior to admit, wanting to heal relationship/trust with daughter and . Reviewed her thoughts on doing this. Met with pt's daughter Vilma at her request. Discussed pt coming home, daughter's concerns, diagnosis of bipolar disorder, medications and treatment plan. Questions addressed. Vilma would like pt to return home and begin PHP program soon after return. Review of Vilma's crisis plan should pt have emergent needs. She is at home with pt from 10-11am and 6-7pm and has resources of her father, her grandparents who live next to them, 911 and crisis team identified to call for help if she feels she needs this. Medication Compliance: Yes Side effects from medications: No Attending Groups: Yes Review of Systems Acute medical concerns: No Medical Review of Systems: unchanged Mental Status Exam Mental Status Exam Patient Appearance: Appropriate Patient Orientation: Person, Place, Time and Situation Level of Consciousness: Alert Patient Behavior: Appropriate, Talkative, Cooperative, Anxious and Good Eye Contact Mood Description: Anxious Affect Description: Anxious Patient Cognition Impaired: No Ability to Follow Directions: Good Speech Pattern: Spontaneous Speech Memory Description: Intact Hallucinations: None Delusions: Not Present Thought Process: Intact and Goal Oriented Thought Content: positive for Intact and positive for Goal Oriented Depressive Symptoms: Increased Anxiety and Low Self Esteem Judgement: Good Diagnostics Vital Signs (24Hr): Vital Signs - 24 hr 01/11/23 08:04 Temperature 98.6 F Pulse Rate 75 Respiratory Rate 18 Blood Pressure 132/88 Pulse Oximetry 95 Oxygen Delivery Method Room Air BMI result Body Mass Index 29.7 Labs 12/31/22 12:30 12/31/22 12:30 Medications Medications Current Medications Acetaminophen (Acetaminophen 325 Mg Tablet) 650 mg PO Q6H PRN PRN Reason: Headache/Pain Mild Scale (1-3) Al Hydroxide/Mg Hydroxide (Magnesium Hydrox/Alum Hydrox 30 Ml Oral.Susp) 30 ml PO Q6H PRN PRN Reason: Heartburn/Nausea Cyanocobalamin (Cyanocobalamin (Vitamin B-12) 100 Mcg Tablet) 100 mcg PO DAILY [facility] Last Admin: 01/11/23 07:53 Dose: 100 mcg Hydroxyzine HCl (Hydroxyzine Hcl 25 Mg Tablet) 25 mg PO Q6H PRN PRN Reason: Anxiety Ibuprofen (Ibuprofen 400 Mg Tablet) 400 mg PO Q6H PRN PRN Reason: pain mild Lamotrigine (Lamotrigine 25 Mg Tablet) 25 mg PO BEDTIME [facility] Last Admin: 01/10/23 20:16 Dose: 25 mg Magnesium Hydroxide (Milk Of Magnesia 30 Ml Oral.Susp) 30 ml PO DAILY PRN PRN Reason: Constipation Melatonin (Melatonin 3 Mg Tablet) 3 mg PO BEDTIME [facility] Last Admin: 01/10/23 20:16 Dose: 3 mg Sertraline HCl (Sertraline Hcl 50 Mg Tablet) 150 mg PO DAILY [facility] Last Admin: 01/11/23 07:53 Dose: 150 mg Allergies Allergies Allergy/AdvReac Type Severity Reaction Status Date / Time trazodone AdvReac Confusion Verified 01/04/23 10:12 Assessment & Plan Assessment & Plan (1) Suicidal ideation: Status: Acute Code(s): R45.851 - Suicidal ideations (2) CVA (cerebral vascular accident): Status: Acute Code(s): I63.9 - Cerebral infarction, unspecified (3) Major depression: Status: Acute Code(s): F32.9 - Major depressive disorder, single episode, unspecified Plan 42 yo female, with depression, SI, hiding a knife in her bedroom with plan to kill herself. hospital course: 01/02: Continue current regimen and plans 01/03: Continue current regimen and plans. Discontinue trazodone and initiate melatonin 3 mg 01/04 patient feeling better; retracted 3 day notice; continue current treatment plan 01/06/23- Family meeting 01/07. Continue Lamictal Pt interested in PHP post discharge. 01/07/23- Continue Lamictal PHP referrals 01/08/23 Continue current regime and plan. 01/09/23 Continue current regime and plan. 4?30: Continue current plan. 01/11/23- Couples meeting 01/12. Preparing for transition to [facility] and discharge. Plan: CV (retracted 3 day) Continue Sertraline Collateral contact ? Mood stabilizer augmentation Patient educated on: medication risk/benefits and therapeutic strategies Guardian/Caregiver educated on: medication risk/benefits and therapeutic strategies Informed Consent: understands Reason for continued inpatient stay Substantial Risk for: rapid decompensation Time Spent With Patient Time: Total time managing care of this patient today ____ minutes.
[2023-01-11 17:30] VITALS: BP 117/76; PULSE 70; TEMP 36.6; O2SAT 96
[2023-01-11] MEDS: Melatonin 3 MG TABLET PO (20:59)
[2023-01-11] MEDS: lamoTRIgine 25 MG TABLET PO (21:00)
[2023-01-12] MEDS: Cyanocobalamin (Vitamin B-12) 100 MCG TABLET PO (08:01)
[2023-01-12] MEDS: Sertraline HCL 50 MG TABLET 150 MG PO (08:01)
[2023-01-12 08:02] VITALS: BP 125/89; PULSE 70; RESP 16; TEMP 36.5; O2SAT 98
--- NOTE | 2023-01-12 16:35 | HO.PSYCHPN ---
Subjective Subjective Date of Service: 01/12/23 Reason For Visit: Recurrent severe major depression Subjective Notes: Conditional Voluntary Healthcare Proxy: No Guardianship: No Medical Problems Affecting Mental Status: No Interim History: Pt preparing for discharge, 01/15 to PHP Intake. Met with pt and . states they are not being helped as they would like. He brings up his fear that pt cannot be left alone, left with their daughter. He reports fear for all of us due to mood changes, Will she do this again.? Discussed difficulty with mother in law calling the home constantly. Discussed pt living with her father while puts a management plan in place to help pt avoid mother in law being a trigger with calls to the home. Both will consider. Discussed daughter's treatment team filing 51A. Discussed our filing as well to offer our perspective on pt's precipitants/issues/ and plans. Both agree this is appropriate. Pt discussed her safety plan, lack of intent to harm herself and sx mgt plan to implement if in crisis. She described at times needing support once in a while and not having access to those resources prior to the incident which precipitated the hospital admission. Medication Compliance: Yes Side effects from medications: No Attending Groups: Yes Review of Systems Medical Review of Systems: unchanged Mental Status Exam Mental Status Exam Patient Appearance: Appropriate Patient Orientation: Person, Place, Time and Situation Level of Consciousness: Alert Patient Behavior: Appropriate, Talkative, Cooperative, Anxious and Good Eye Contact Mood Description: Anxious Affect Description: Anxious Patient Cognition Impaired: No Ability to Follow Directions: Good Speech Pattern: Spontaneous Speech Memory Description: Intact Hallucinations: None Delusions: Not Present Thought Process: Intact and Goal Oriented Thought Content: positive for Intact and positive for Goal Oriented Depressive Symptoms: Increased Anxiety and Low Self Esteem Judgement: Good Diagnostics Vital Signs (24Hr): Vital Signs - 24 hr 01/11/23 17:30 01/12/23 08:02 Temperature 97.9 F 97.7 F Pulse Rate 70 70 Respiratory Rate 16 Blood Pressure 117/76 125/89 Pulse Oximetry 96 98 Oxygen Delivery Method Room Air Room Air BMI result Body Mass Index 29.7 Labs 12/31/22 12:30 12/31/22 12:30 Medications Medications Current Medications Acetaminophen (Acetaminophen 325 Mg Tablet) 650 mg PO Q6H PRN PRN Reason: Headache/Pain Mild Scale (1-3) Al Hydroxide/Mg Hydroxide (Magnesium Hydrox/Alum Hydrox 30 Ml Oral.Susp) 30 ml PO Q6H PRN PRN Reason: Heartburn/Nausea Cyanocobalamin (Cyanocobalamin (Vitamin B-12) 100 Mcg Tablet) 100 mcg PO DAILY [facility] Last Admin: 01/12/23 08:01 Dose: 100 mcg Hydroxyzine HCl (Hydroxyzine Hcl 25 Mg Tablet) 25 mg PO Q6H PRN PRN Reason: Anxiety Ibuprofen (Ibuprofen 400 Mg Tablet) 400 mg PO Q6H PRN PRN Reason: pain mild Lamotrigine (Lamotrigine 25 Mg Tablet) 25 mg PO BEDTIME [facility] Last Admin: 01/11/23 21:00 Dose: 25 mg Magnesium Hydroxide (Milk Of Magnesia 30 Ml Oral.Susp) 30 ml PO DAILY PRN PRN Reason: Constipation Melatonin (Melatonin 3 Mg Tablet) 3 mg PO BEDTIME [facility] Last Admin: 01/11/23 20:59 Dose: 3 mg Sertraline HCl (Sertraline Hcl 50 Mg Tablet) 150 mg PO DAILY [facility] Last Admin: 01/12/23 08:01 Dose: 150 mg Allergies Allergies Allergy/AdvReac Type Severity Reaction Status Date / Time trazodone AdvReac Confusion Verified 01/04/23 10:12 Assessment & Plan Assessment & Plan (1) Suicidal ideation: Status: Acute Code(s): R45.851 - Suicidal ideations (2) CVA (cerebral vascular accident): Status: Acute Code(s): I63.9 - Cerebral infarction, unspecified (3) Major depression: Status: Acute Code(s): F32.9 - Major depressive disorder, single episode, unspecified Plan 42 yo female, with depression, SI, hiding a knife in her bedroom with plan to kill herself. hospital course: 01/02: Continue current regimen and plans 01/03: Continue current regimen and plans. Discontinue trazodone and initiate melatonin 3 mg 01/04 patient feeling better; retracted 3 day notice; continue current treatment plan 01/06/23- Family meeting 01/07. Continue Lamictal Pt interested in PHP post discharge. 01/07/23- Continue Lamictal PHP referrals 01/08/23 Continue current regime and plan. 01/09/23 Continue current regime and plan. 30: Continue current plan. 01/11/23- Couples meeting 01/12. Preparing for transition to PHP and discharge. 01/12/23: Discharge 01/15 to [facility] Intake 51A to be filed Discharge planning-pt may stay with her father on an interim basis Plan: CV (retracted 3 day) Continue Sertraline Collateral contact ? Mood stabilizer augmentation Patient educated on: therapeutic strategies Informed Consent: understands Reason for continued inpatient stay Substantial Risk for: rapid decompensation Time Spent With Patient Time: Total time managing care of this patient today ____ minutes.
[2023-01-12 17:10] VITALS: BP 129/71; PULSE 90; TEMP 35.8; O2SAT 98
[2023-01-12] MEDS: Melatonin 3 MG TABLET PO (20:34)
[2023-01-12] MEDS: lamoTRIgine 25 MG TABLET PO (20:34)
[2023-01-13] MEDS: Sertraline HCL 50 MG TABLET 150 MG PO (07:53)
[2023-01-13] MEDS: Cyanocobalamin (Vitamin B-12) 100 MCG TABLET PO (07:53)
[2023-01-13 08:04] VITALS: BP 130/72; PULSE 83; RESP 16; TEMP 36.4; O2SAT 95
--- NOTE | 2023-01-13 16:28 | P.PNPSI_ITS ---
Subjective Subjective Date of Service: 01/13/23 Reason For Visit: Recurrent severe major depression Subjective Notes: Conditional Voluntary Healthcare Proxy: No Guardianship: No Medical Problems Affecting Mental Status: No Interim History: 51A filed. Pt and present, reviewed paperwork to be faxed to [facility] and were present during telephone filing. Planning discharge 01/15/23. dis cussed concerns about pt's safety, and daughter not feeling comfortable with pt being at home with her alone. Pt discussed her safety. She is currently not feeling any SI and is able to give her crisis plan should she feel unsafe. Discussed possibly staying with her father for a few days to increase daughter's comfort, however, father needs to be in [place] this weekend with his mother to assist her, so pt will go home. Discussed transportation needs to [facility]. Message left for pt's therapist/prescriber Navin/oLuisa with [facility] [phone]. Pt has an in person appt with Navin on 01/19 3pm. Discussed difficulties with mother in law, who lives next to the family. was asked to address these as mother in law can be a trigger for pt. Medication Compliance: Yes Side effects from medications: No Attending Groups: Yes Review of Systems Acute medical concerns: No Medical Review of Systems: unchanged Mental Status Exam Mental Status Exam Patient Appearance: Appropriate Patient Orientation: Person, Place, Time and Situation Level of Consciousness: Alert Patient Behavior: Appropriate, Talkative, Cooperative, Anxious and Good Eye Contact Mood Description: Anxious Affect Description: Anxious Patient Cognition Impaired: No Ability to Follow Directions: Good Speech Pattern: Spontaneous Speech Memory Description: Intact Hallucinations: None Delusions: Not Present Thought Process: Intact and Goal Oriented Thought Content: positive for Intact and positive for Goal Oriented Depressive Symptoms: Increased Anxiety and Low Self Esteem Judgement: Good Diagnostics Vital Signs (24Hr): Vital Signs - 24 hr 01/12/23 17:10 01/13/23 08:04 Temperature 96.4 F L 97.6 F Pulse Rate 90 83 Respiratory Rate 16 Blood Pressure 129/71 130/72 Pulse Oximetry 98 95 Oxygen Delivery Method Room Air Room Air BMI result Body Mass Index 29.7 Labs 12/31/22 12:30 12/31/22 12:30 Medications Medications Current Medications Acetaminophen (Acetaminophen 325 Mg Tablet) 650 mg PO Q6H PRN PRN Reason: Headache/Pain Mild Scale (1-3) Al Hydroxide/Mg Hydroxide (Magnesium Hydrox/Alum Hydrox 30 Ml Oral.Susp) 30 ml PO Q6H PRN PRN Reason: Heartburn/Nausea Cyanocobalamin (Cyanocobalamin (Vitamin B-12) 100 Mcg Tablet) 100 mcg PO DAILY [facility] Last Admin: 01/13/23 07:53 Dose: 100 mcg Hydroxyzine HCl (Hydroxyzine Hcl 25 Mg Tablet) 25 mg PO Q6H PRN PRN Reason: Anxiety Ibuprofen (Ibuprofen 400 Mg Tablet) 400 mg PO Q6H PRN PRN Reason: pain mild Lamotrigine (Lamotrigine 25 Mg Tablet) 25 mg PO BEDTIME [facility] Last Admin: 01/12/23 20:34 Dose: 25 mg Magnesium Hydroxide (Milk Of Magnesia 30 Ml Oral.Susp) 30 ml PO DAILY PRN PRN Reason: Constipation Melatonin (Melatonin 3 Mg Tablet) 3 mg PO BEDTIME [facility] Last Admin: 01/12/23 20:34 Dose: 3 mg Sertraline HCl (Sertraline Hcl 50 Mg Tablet) 150 mg PO DAILY [facility] Last Admin: 01/13/23 07:53 Dose: 150 mg Allergies Allergies Allergy/AdvReac Type Severity Reaction Status Date / Time trazodone AdvReac Confusion Verified 01/04/23 10:12 Assessment & Plan Assessment & Plan (1) Suicidal ideation: Status: Acute Code(s): R45.851 - Suicidal ideations (2) CVA (cerebral vascular accident): Status: Acute Code(s): I63.9 - Cerebral infarction, unspecified (3) Major depression: Status: Acute Code(s): F32.9 - Major depressive disorder, single episode, unspecified Plan 42 yo female, with depression, SI, hiding a knife in her bedroom with plan to kill herself. hospital course: 01/02: Continue current regimen and plans 01/03: Continue current regimen and plans. Discontinue trazodone and initiate melatonin 3 mg 01/04 patient feeling better; retracted 3 day notice; continue current treatment plan 01/06/23- Family meeting 01/07. Continue Lamictal Pt interested in PHP post discharge. 01/07/23- Continue Lamictal PHP referrals 01/08/23 Continue current regime and plan. 01/09/23 Continue current regime and plan. 430: Continue current plan. 5/1/23- Couples meeting 01/12. Preparing for transition to [facility] and discharge. 01/12/23: Discharge 01/15 to [facility] Intake 51A to be filed Discharge planning-pt may stay with her father on an interim basis 01/13/23 51A filed Message left for therapist, Navin Mancilla Increase Lamictal to 25 mg bid. Plan: CV (retracted 3 day) Continue Sertraline Collateral contact ? Mood stabilizer augmentation Patient educated on: therapeutic strategies Informed Consent: understands Reason for continued inpatient stay Substantial Risk for: harm to self and rapid decompensation Time Spent With Patient Time: Total time managing care of this patient today ____ minutes.
[2023-01-13 17:09] VITALS: BP 152/72; PULSE 68; TEMP 36.5
[2023-01-13] MEDS: Ibuprofen 400 MG TABLET PO (17:11)
[2023-01-13] MEDS: lamoTRIgine 25 MG TABLET PO (20:10)
[2023-01-13] MEDS: Melatonin 3 MG TABLET PO (20:10)
[2023-01-14 07:00] VITALS: BMI 29.9
[2023-01-14 08:00] VITALS: BP 121/76; PULSE 75; RESP 18; TEMP 37.1; O2SAT 95
[2023-01-14] MEDS: Cyanocobalamin (Vitamin B-12) 100 MCG TABLET PO (08:05)
[2023-01-14] MEDS: Sertraline HCL 50 MG TABLET 150 MG PO (08:05)
[2023-01-14] MEDS: lamoTRIgine 25 MG TABLET PO ×2 (09:41→20:20)
--- NOTE | 2023-01-14 15:03 | HO.PSYCHPN ---
Subjective Subjective Date of Service: 01/14/23 Reason For Visit: Recurrent severe major depression Subjective Notes: Conditional Voluntary Healthcare Proxy: No Guardianship: No Medical Problems Affecting Mental Status: No Interim History: Met with pt and . continues to be concerned for pt's safety when discharged to home. Also concerned about pt's interactions with their daughter. Pt spoke to these issues, assuring of her safety, willingness to work with their daughter and investment in the plan being effective. Call from pt's father Goran Huffman [phone]/ [phone]-returned call with pt and Wade Garvin [facility]. Father had questions about pt being ready for discharge, insurance pressure, mixed messaged given to him from pt and Cj. Reviewed current plans. Father reports pt and grand-daughter are welcome to stay with him at anytime. This weekend he is caring for his mother in [place]. Father reports he finds pt's mother in law to be a significant stress to pt, couple and family with her behaviors-discussed effects and Cj's inability to facilitate a change in her behaviors and actions. Discussed aftercare planning. Father is very supportive of pt and is an available resource for her moving forward. Medication Compliance: Yes Side effects from medications: No Attending Groups: Yes Review of Systems Acute medical concerns: No Medical Review of Systems: unchanged Mental Status Exam Mental Status Exam Patient Appearance: Appropriate Patient Orientation: Person, Place, Time and Situation Level of Consciousness: Alert Patient Behavior: Appropriate, Talkative, Cooperative, Anxious and Good Eye Contact Mood Description: Anxious Affect Description: Anxious Patient Cognition Impaired: No Ability to Follow Directions: Good Speech Pattern: Spontaneous Speech Memory Description: Intact Hallucinations: None Delusions: Not Present Thought Process: Intact and Goal Oriented Thought Content: positive for Intact and positive for Goal Oriented Depressive Symptoms: Increased Anxiety and Low Self Esteem Judgement: Good Diagnostics Vital Signs (24Hr): Vital Signs - 24 hr 01/13/23 17:09 01/14/23 08:00 Temperature 97.7 F 98.8 F Pulse Rate 68 75 Respiratory Rate 18 Blood Pressure 152/72 H 121/76 Pulse Oximetry 95 Oxygen Delivery Method Room Air BMI result Body Mass Index 29.9 Labs 12/31/22 12:30 12/31/22 12:30 Medications Medications Current Medications Acetaminophen (Acetaminophen 325 Mg Tablet) 650 mg PO Q6H PRN PRN Reason: Headache/Pain Mild Scale (1-3) Al Hydroxide/Mg Hydroxide (Magnesium Hydrox/Alum Hydrox 30 Ml Oral.Susp) 30 ml PO Q6H PRN PRN Reason: Heartburn/Nausea Cyanocobalamin (Cyanocobalamin (Vitamin B-12) 100 Mcg Tablet) 100 mcg PO DAILY [facility] Last Admin: 01/14/23 08:05 Dose: 100 mcg Hydroxyzine HCl (Hydroxyzine Hcl 25 Mg Tablet) 25 mg PO Q6H PRN PRN Reason: Anxiety Ibuprofen (Ibuprofen 400 Mg Tablet) 400 mg PO Q6H PRN PRN Reason: pain mild Last Admin: 01/13/23 17:11 Dose: 400 mg Lamotrigine (Lamotrigine 25 Mg Tablet) 25 mg PO BID [facility] Last Admin: 01/14/23 09:41 Dose: 25 mg Magnesium Hydroxide (Milk Of Magnesia 30 Ml Oral.Susp) 30 ml PO DAILY PRN PRN Reason: Constipation Melatonin (Melatonin 3 Mg Tablet) 3 mg PO BEDTIME [facility] Last Admin: 01/13/23 20:10 Dose: 3 mg Sertraline HCl (Sertraline Hcl 50 Mg Tablet) 150 mg PO DAILY [facility] Last Admin: 01/14/23 08:05 Dose: 150 mg Allergies Allergies Allergy/AdvReac Type Severity Reaction Status Date / Time trazodone AdvReac Confusion Verified 01/04/23 10:12 Assessment & Plan Assessment & Plan (1) Suicidal ideation: Status: Acute Code(s): R45.851 - Suicidal ideations (2) CVA (cerebral vascular accident): Status: Acute Code(s): I63.9 - Cerebral infarction, unspecified (3) Major depression: Status: Acute Code(s): F32.9 - Major depressive disorder, single episode, unspecified Plan 42 yo female, with depression, SI, hiding a knife in her bedroom with plan to kill herself. hospital course: 01/02: Continue current regimen and plans 01/03: Continue current regimen and plans. Discontinue trazodone and initiate melatonin 3 mg 01/04 patient feeling better; retracted 3 day notice; continue current treatment plan 01/06/23- Family meeting 01/07. Continue Lamictal Pt interested in PHP post discharge. 01/07/23- Continue Lamictal PHP referrals 01/08/23 Continue current regime and plan. 01/09/23 Continue current regime and plan. 4?30: Continue current plan. 01/11/23- Couples meeting 01/12. Preparing for transition to PHP and discharge. 01/12/23: Discharge 01/15 to PHP Intake 51A to be filed Discharge planning-pt may stay with her father on an interim basis 01/13/23 51A filed Message left for therapist, Navin Mancilla Increase Lamictal to 25 mg bid. 01/14/23: Discharge 01/15/23. PHP Intake 01/15/23. Plan: CV (retracted 3 day) Continue Sertraline Collateral contact ? Mood stabilizer augmentation Patient educated on: therapeutic strategies Guardian/Caregiver educated on: therapeutic strategies Informed Consent: understands Reason for continued inpatient stay Substantial Risk for: stable for discharge Time Spent With Patient Time: Total time managing care of this patient today ____ minutes.
[2023-01-14 18:00] VITALS: BP 124/68; PULSE 84; RESP 16; TEMP 36.4; O2SAT 99
[2023-01-14] MEDS: Melatonin 3 MG TABLET PO (20:20)
[2023-01-15 06:00] VITALS: BP 128/84; PULSE 86; RESP 14; TEMP 36.9
[2023-01-15] MEDS: Sertraline HCL 50 MG TABLET 150 MG PO (08:22)
[2023-01-15] MEDS: lamoTRIgine 25 MG TABLET PO ×2 (08:22→20:33)
[2023-01-15] MEDS: Cyanocobalamin (Vitamin B-12) 100 MCG TABLET PO (08:22)
--- NOTE | 2023-01-15 14:53 | P.PNPSI_ITS ---
Subjective Subjective Date of Service: 01/15/23 Reason For Visit: Recurrent severe major depression Subjective Notes: Conditional Voluntary Healthcare Proxy: No Guardianship: No Medical Problems Affecting Mental Status: No Interim History: Discharge plans changed. will not allow pt at their home as their daughter refused to go to school or cooperate with her father if pt is discharged. She is demanding pt not be allowed home. reports he was unaware of pt's plan to return to the family home, although pt and planned for her return to the family home on 01/13. Discussed with pt. She attended PHP intake today and will begin PHP on 01/18/23. She will remain on [facility] for the weekend and will discharge to the PHP program on 01/18/23. We called pt's father and he will pick her up after her first PHP day, help her to gather some belongings at their home and she will stay with her father for a period of time. Discussed with pt making contact with daughter's therapist to begin to address their relationship issues. She agrees. Medication Compliance: Yes Side effects from medications: No Attending Groups: Yes Review of Systems Acute medical concerns: No Medical Review of Systems: unchanged Mental Status Exam Mental Status Exam Patient Appearance: Appropriate Patient Orientation: Person, Place, Time and Situation Level of Consciousness: Alert Patient Behavior: Appropriate, Talkative, Cooperative and Good Eye Contact Mood Description: Appropriate and Anxious Affect Description: Anxious Patient Cognition Impaired: No Ability to Follow Directions: Good Speech Pattern: Spontaneous Speech Memory Description: Intact Hallucinations: None Delusions: Not Present Thought Process: Distracted Thought Content: positive for Perseveration and positive for Suicidal Ideation (denies) Depressive Symptoms: Increased Anxiety and Thoughts of /Suicide (denies) Judgement: Good Diagnostics Vital Signs (24Hr): Vital Signs - 24 hr 01/14/23 18:00 01/15/23 06:00 Temperature 97.6 F 98.4 F Pulse Rate 84 86 Respiratory Rate 16 14 Blood Pressure 124/68 128/84 Pulse Oximetry 99 Oxygen Delivery Method Room Air BMI result Body Mass Index 29.9 Labs 12/31/22 12:30 12/31/22 12:30 Medications Medications Current Medications Acetaminophen (Acetaminophen 325 Mg Tablet) 650 mg PO Q6H PRN PRN Reason: Headache/Pain Mild Scale (1-3) Al Hydroxide/Mg Hydroxide (Magnesium Hydrox/Alum Hydrox 30 Ml Oral.Susp) 30 ml PO Q6H PRN PRN Reason: Heartburn/Nausea Cyanocobalamin (Cyanocobalamin (Vitamin B-12) 100 Mcg Tablet) 100 mcg PO DAILY [facility] Last Admin: 01/15/23 08:22 Dose: 100 mcg Hydroxyzine HCl (Hydroxyzine Hcl 25 Mg Tablet) 25 mg PO Q6H PRN PRN Reason: Anxiety Ibuprofen (Ibuprofen 400 Mg Tablet) 400 mg PO Q6H PRN PRN Reason: pain mild Last Admin: 01/13/23 17:11 Dose: 400 mg Lamotrigine (Lamotrigine 25 Mg Tablet) 25 mg PO BID [facility] Last Admin: 01/15/23 08:22 Dose: 25 mg Magnesium Hydroxide (Milk Of Magnesia 30 Ml Oral.Susp) 30 ml PO DAILY PRN PRN Reason: Constipation Melatonin (Melatonin 3 Mg Tablet) 3 mg PO BEDTIME [facility] Last Admin: 01/14/23 20:20 Dose: 3 mg Sertraline HCl (Sertraline Hcl 50 Mg Tablet) 150 mg PO DAILY [facility] Last Admin: 01/15/23 08:22 Dose: 150 mg Allergies Allergies Allergy/AdvReac Type Severity Reaction Status Date / Time trazodone AdvReac Confusion Verified 01/04/23 10:12 Assessment & Plan Assessment & Plan (1) Suicidal ideation: Status: Acute Code(s): R45.851 - Suicidal ideations (2) CVA (cerebral vascular accident): Status: Acute Code(s): I63.9 - Cerebral infarction, unspecified (3) Major depression: Status: Acute Code(s): F32.9 - Major depressive disorder, single episode, unspecified Plan 42 yo female, with depression, SI, hiding a knife in her bedroom with plan to kill herself. hospital course: 01/02: Continue current regimen and plans 01/03: Continue current regimen and plans. Discontinue trazodone and initiate melatonin 3 mg 01/04 patient feeling better; retracted 3 day notice; continue current treatment plan 01/06/23- Family meeting 01/07. Continue Lamictal Pt interested in PHP post discharge. 01/07/23- Continue Lamictal PHP referrals 01/08/23 Continue current regime and plan. 01/09/23 Continue current regime and plan. 30: Continue current plan. 01/11/23- Couples meeting 01/12. Preparing for transition to PHP and discharge. 01/12/23: Discharge 01/15 to PHP Intake 51A to be filed Discharge planning-pt may stay with her father on an interim basis 01/13/23 51A filed Message left for therapist, Navin Mancilla Increase Lamictal to 25 mg bid. 01/14/23: Discharge 01/15/23. PHP Intake 01/15/23. 01/15/23: Discharge cancelled due to and daughter's resistance to have pt at home. Plan: Discharge 01/18/23 to PHP Pt will stay with her father upon discharge Plan: CV (retracted 3 day) Continue Sertraline Collateral contact ? Mood stabilizer augmentation Patient educated on: therapeutic strategies Informed Consent: understands Reason for continued inpatient stay Substantial Risk for: rapid decompensation Time Spent With Patient Time: Total time managing care of this patient today ____ minutes.
[2023-01-15 18:00] VITALS: BP 129/89; PULSE 75; RESP 14; TEMP 36.6; O2SAT 100
[2023-01-15] MEDS: Melatonin 3 MG TABLET PO (20:33)
[2023-01-16 06:00] VITALS: BP 131/70; PULSE 121; RESP 14; TEMP 36.2
[2023-01-16] MEDS: lamoTRIgine 25 MG TABLET PO ×2 (09:22→20:21)
[2023-01-16] MEDS: Sertraline HCL 50 MG TABLET 150 MG PO (09:22)
[2023-01-16] MEDS: Cyanocobalamin (Vitamin B-12) 100 MCG TABLET PO (09:22)
--- NOTE | 2023-01-16 09:25 | P.PNPSI_ITS ---
Subjective Subjective Date of Service: 01/16/23 Reason For Visit: Recurrent severe major depression Interim History: Met with patient; discussed with team; reviewed progress notes Patient reports she is doing well, sleeping well eating well and feeling ready for discharge Wednesday. Denies any SI; no complaints and no requests Mental Status Exam Mental Status Exam Patient Appearance: Appropriate Patient Orientation: Person, Place, Time and Situation Level of Consciousness: Alert Patient Behavior: Appropriate, Cooperative and Good Eye Contact Mood Description: Calm and Appropriate Affect Description: Calm and Appropriate Patient Cognition Impaired: No Ability to Follow Directions: Good Speech Pattern: Clear and Spontaneous Speech Memory Description: Intact Hallucinations: None Delusions: Not Present Thought Process: Intact and Linear Thought Content: positive for Intact, positive for Perseveration, positive for Suicidal Ideation (denies) and positive for Homicidal Ideation (denies) Depressive Symptoms: Thoughts of /Suicide (denies) Judgement: Good Diagnostics Vital Signs (24Hr): Vital Signs - 24 hr 01/15/23 18:00 Temperature 98 F Pulse Rate 75 Respiratory Rate 14 Blood Pressure 129/89 Pulse Oximetry 100 Oxygen Delivery Method Room Air BMI result Body Mass Index 29.9 Labs 12/31/22 12:30 12/31/22 12:30 Medications Medications Current Medications Acetaminophen (Acetaminophen 325 Mg Tablet) 650 mg PO Q6H PRN PRN Reason: Headache/Pain Mild Scale (1-3) Al Hydroxide/Mg Hydroxide (Magnesium Hydrox/Alum Hydrox 30 Ml Oral.Susp) 30 ml PO Q6H PRN PRN Reason: Heartburn/Nausea Cyanocobalamin (Cyanocobalamin (Vitamin B-12) 100 Mcg Tablet) 100 mcg PO DAILY [facility]S AT [facility] Last Admin: 01/16/23 09:22 Dose: 100 mcg Hydroxyzine HCl (Hydroxyzine Hcl 25 Mg Tablet) 25 mg PO Q6H PRN PRN Reason: Anxiety Ibuprofen (Ibuprofen 400 Mg Tablet) 400 mg PO Q6H PRN PRN Reason: pain mild Last Admin: 01/13/23 17:11 Dose: 400 mg Lamotrigine (Lamotrigine 25 Mg Tablet) 25 mg PO BID [facility] 234 BEDS AT [facility] Last Admin: 01/16/23 09:22 Dose: 25 mg Magnesium Hydroxide (Milk Of Magnesia 30 Ml Oral.Susp) 30 ml PO DAILY PRN PRN Reason: Constipation Melatonin (Melatonin 3 Mg Tablet) 3 mg PO BEDTIME [facility] 234 BEDS AT [facility] Last Admin: 01/15/23 20:33 Dose: 3 mg Sertraline HCl (Sertraline Hcl 50 Mg Tablet) 150 mg PO DAILY [facility] Last Admin: 01/16/23 09:22 Dose: 150 mg Allergies Allergies Allergy/AdvReac Type Severity Reaction Status Date / Time trazodone AdvReac Confusion Verified 01/04/23 10:12 Assessment & Plan Assessment & Plan (1) Suicidal ideation: Status: Acute Code(s): R45.851 - Suicidal ideations (2) CVA (cerebral vascular accident): Status: Acute Code(s): I63.9 - Cerebral infarction, unspecified (3) Major depression: Status: Acute Code(s): F32.9 - Major depressive disorder, single episode, unspecified Plan 42 yo female, with depression, SI, hiding a knife in her bedroom with plan to kill herself. hospital course: 01/02: Continue current regimen and plans 01/03: Continue current regimen and plans. Discontinue trazodone and initiate melatonin 3 mg 01/04 patient feeling better; retracted 3 day notice; continue current treatment plan 01/06/23- Family meeting 01/07. Continue Lamictal Pt interested in PHP post discharge. 01/07/23- Continue Lamictal PHP referrals 01/08/23 Continue current regime and plan. 01/09/23 Continue current regime and plan. 30: Continue current plan. 01/11/23- Couples meeting 01/12. Preparing for transition to PHP and discharge. 01/12/23: Discharge 01/15 to PHP Intake 51A to be filed Discharge planning-pt may stay with her father on an interim basis 01/13/23 51A filed Message left for therapist, Navin Mancilla Increase Lamictal to 25 mg bid. 01/14/23: Discharge 01/15/23. PHP Intake 01/15/23. 01/15/23: Discharge cancelled due to and daughter's resistance to have pt at home. Plan: Discharge 01/18/23 to PHP Pt will stay with her father upon discharge 01/16/23: Patient remains stable; continue current treatment plan Plan: CV (retracted 3 day) Continue Sertraline Collateral contact ? Mood stabilizer augmentation Patient educated on: diagnosis Informed Consent: understands Reason for continued inpatient stay Substantial Risk for: stable for discharge Time Spent With Patient Time: Total time managing care of this patient today ____ minutes.
[2023-01-16 18:00] VITALS: BP 124/78; PULSE 89; RESP 16; TEMP 36.6; O2SAT 98
[2023-01-16] MEDS: Melatonin 3 MG TABLET PO (20:21)
[2023-01-17 06:00] VITALS: BP 111/58; PULSE 73; RESP 16; TEMP 36.4; O2SAT 100
[2023-01-17] MEDS: Sertraline HCL 50 MG TABLET 150 MG PO (08:37)
[2023-01-17] MEDS: Cyanocobalamin (Vitamin B-12) 100 MCG TABLET PO (08:42)
--- NOTE | 2023-01-17 13:17 | HO.PSYCHPN ---
Subjective Subjective Date of Service: 01/17/23 Reason For Visit: Recurrent severe major depression Interim History: Met with patient; discussed with team Patient reports that overall mood remains much better, no SI. She feels that daytime Lamictal causes her to feel tired and asks if it can be consolidated to bedtime dose to which marketing underwriter agrees. Otherwise she is planning to discharge tomorrow. Mental Status Exam Mental Status Exam Patient Appearance: Appropriate Patient Orientation: Person, Place, Time and Situation Level of Consciousness: Alert Patient Behavior: Appropriate, Cooperative and Good Eye Contact Mood Description: Calm and Appropriate Affect Description: Calm and Appropriate Patient Cognition Impaired: No Ability to Follow Directions: Good Speech Pattern: Clear and Spontaneous Speech Memory Description: Intact Hallucinations: None Delusions: Not Present Thought Process: Intact and Linear Thought Content: positive for Intact, positive for Perseveration, positive for Suicidal Ideation (denies) and positive for Homicidal Ideation (denies) Depressive Symptoms: Thoughts of /Suicide (denies) Judgement: Good Diagnostics Vital Signs (24Hr): Vital Signs - 24 hr 01/16/23 18:00 01/17/23 06:00 Temperature 97.8 F 97.6 F Pulse Rate 89 73 Respiratory Rate 16 16 Blood Pressure 124/78 111/58 L Pulse Oximetry 98 100 Oxygen Delivery Method Room Air Room Air BMI result Body Mass Index 29.9 Labs 12/31/22 12:30 12/31/22 12:30 Medications Medications Current Medications Acetaminophen (Acetaminophen 325 Mg Tablet) 650 mg PO Q6H PRN PRN Reason: Headache/Pain Mild Scale (1-3) Al Hydroxide/Mg Hydroxide (Magnesium Hydrox/Alum Hydrox 30 Ml Oral.Susp) 30 ml PO Q6H PRN PRN Reason: Heartburn/Nausea Cyanocobalamin (Cyanocobalamin (Vitamin B-12) 100 Mcg Tablet) 100 mcg PO DAILY [facility] Last Admin: 01/17/23 08:42 Dose: 100 mcg Hydroxyzine HCl (Hydroxyzine Hcl 25 Mg Tablet) 25 mg PO Q6H PRN PRN Reason: Anxiety Ibuprofen (Ibuprofen 400 Mg Tablet) 400 mg PO Q6H PRN PRN Reason: pain mild Last Admin: 01/13/23 17:11 Dose: 400 mg Lamotrigine (Lamotrigine 25 Mg Tablet) 50 mg PO BEDTIME [facility] Magnesium Hydroxide (Milk Of Magnesia 30 Ml Oral.Susp) 30 ml PO DAILY PRN PRN Reason: Constipation Melatonin (Melatonin 3 Mg Tablet) 3 mg PO BEDTIME [facility] Last Admin: 01/16/23 20:21 Dose: 3 mg Sertraline HCl (Sertraline Hcl 50 Mg Tablet) 150 mg PO DAILY [facility] Last Admin: 01/17/23 08:37 Dose: 150 mg Allergies Allergies Allergy/AdvReac Type Severity Reaction Status Date / Time trazodone AdvReac Confusion Verified 01/04/23 10:12 Assessment & Plan Assessment & Plan (1) Suicidal ideation: Status: Acute Code(s): R45.851 - Suicidal ideations (2) CVA (cerebral vascular accident): Status: Acute Code(s): I63.9 - Cerebral infarction, unspecified (3) Major depression: Status: Acute Code(s): F32.9 - Major depressive disorder, single episode, unspecified Plan 42 yo female, with depression, SI, hiding a knife in her bedroom with plan to kill herself. hospital course: 01/02: Continue current regimen and plans 01/03: Continue current regimen and plans. Discontinue trazodone and initiate melatonin 3 mg 01/04 patient feeling better; retracted 3 day notice; continue current treatment plan 01/06/23- Family meeting 01/07. Continue Lamictal Pt interested in PHP post discharge. 01/07/23- Continue Lamictal PHP referrals 01/08/23 Continue current regime and plan. 01/09/23 Continue current regime and plan. 4?30: Continue current plan. 01/11/23- Couples meeting 01/12. Preparing for transition to PHP and discharge. 01/12/23: Discharge 01/15 to PHP Intake 51A to be filed Discharge planning-pt may stay with her father on an interim basis 01/13/23 51A filed Message left for therapist, Navin Mancilla Increase Lamictal to 25 mg bid. 01/14/23: Discharge 01/15/23. PHP Intake 01/15/23. 01/15/23: Discharge cancelled due to and daughter's resistance to have pt at home. Plan: Discharge 01/18/23 to PHP Pt will stay with her father upon discharge 01/16/23: Patient remains stable; continue current treatment plan 01/17/2023: Patient remained stable; switched Lamictal to 50 mg q.h.s. rather than in divided doses per patient request due to feeling sedated from daytime dose Plan: CV (retracted 3 day) Continue Sertraline Collateral contact Patient educated on: diagnosis and medication risk/benefits Informed Consent: understands Reason for continued inpatient stay Substantial Risk for: stable for discharge Time Spent With Patient Time: Total time managing care of this patient today ____ minutes.
[2023-01-17 18:00] VITALS: BP 128/78; PULSE 86; RESP 16; TEMP 36.6; O2SAT 96
[2023-01-17] MEDS: lamoTRIgine 25 MG TABLET 50 MG PO (19:30)
[2023-01-17] MEDS: Melatonin 3 MG TABLET PO (19:30)
[2023-01-18 06:00] VITALS: BP 124/74; PULSE 85; RESP 14; TEMP 36.6; O2SAT 96
[2023-01-18] MEDS: Cyanocobalamin (Vitamin B-12) 100 MCG TABLET PO (08:26)
[2023-01-18] MEDS: Sertraline HCL 50 MG TABLET 150 MG PO (08:27)
--- NOTE | 2023-01-18 09:00 | PM.PSYDC ---
DS: Providers Provider Date of Service: 01/18/23 Date of admission: 12/31/22 22:32 Date of discharge: 01/18/23 Primary care physician: Alberto Reagan MD Admitting clinician: Trini Cobb Attending physician on admission: Cleveland Zimmerman Attending physician on discharge: Cleveland Zimmerman Discharging clinician: Trini Cobb DS: Diagnosis Discharge Diagnosis (1) Suicidal ideation: Status: Resolved (2) CVA (cerebral vascular accident): Status: Acute (3) Major depression: Status: Inactive (4) Bipolar 2 disorder: Status: Acute DS: Medications Discharge Medications Home Medications: Previous Rx's Medication Instructions Recorded cyanocobalamin (vitamin B-12) 100 100 mcg PO DAILY #30 tabs 01/14/23 mcg tablet (Vitamin B-12) lamotrigine 25 mg tablet 25 mg PO BID #60 tabs 01/14/23 sertraline 100 mg tablet 150 mg PO QAM #45 tabs 01/14/23 Mental Status Exam Mental Status Exam Patient Appearance: Appropriate Patient Orientation: Person, Place, Time and Situation Level of Consciousness: Alert Patient Behavior: Appropriate, Talkative, Cooperative and Good Eye Contact Mood Description: Appropriate and Anxious Affect Description: Anxious Patient Cognition Impaired: No Ability to Follow Directions: Good Speech Pattern: Spontaneous Speech Memory Description: Intact Hallucinations: None Delusions: Not Present Thought Process: Distracted Thought Content: positive for Perseveration and positive for Suicidal Ideation (denies) Depressive Symptoms: Increased Anxiety and Thoughts of /Suicide (denies) Judgement: Good DS: Summary Hospital Course Hospital Course: Admission to adult psychiatry for exacerbation of Bipolar II disorder with SI and planning of an attempt where her daughter found she had been keeping knives in her bedroom, planning to harm herself. Pt has a history of cerebral palsy and CVA. Meetings were held with patient and her , who is disabled post stroke and unable to climb stairs due to fall risk to monitor her bedroom and with her 12 yo daughter who reported not being comfortable with her mother being at the family home. The family reports living next door to husbands parents, however, his mother is said to be in constant conflict with the patient and with her son. Daughter feels supported by her grandparents. 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 She has responded to the family stress of having a chronic illness and resulting financial stressors, has conflict with her adolescent child and reports inconsistent support in parenting, describing herself as the disciplinarian and her as the good parent. Lamictal was initiated. Sertraline was continued, however, prior to admission, this dosage was increased, then pt reported an increase in SI and began to prepare for this attempt. This did not continue during the hospital stay. 51A was filed in the presence of pt and . Both were advised to work with daughter's therapy team and DCF to begin to resolve conflicts. Pt discharged to [facility] program. She will live with her father in the interim as her daughter refuses to have her return to the family home upon discharge. Time spent discussing smoking cessation with patient: 3 to 10 minutes Status at Discharge Functional status at discharge: uses cane/walker Overall status at discharge: patient is progressing back to baseline Time Spent with Patient Time attestation: Total time managing care of this patient today ____ minutes. Time spent: Greater than 30 minutes Discharge Plan Discharge Anticipated Discharge Date/Time: 01/18/23 09:00 Patient Disposition: Home, Self-Care Discharge Diagnosis: Bipolar Disorder, Depressed, Type II History of CVA Referrals: [facility] ([facility]) [Other] - 01/15/23 11:00 am (Scheduled Intake for Admission to Partial Hospitalization Program (PHP). Intake is scheduled with Sheila Schafer) [facility]: Navin Mancilla [Other] - 01/19/23 3:00 pm (Follow-up discharge appointment with therapist. Appointment in person at [facility].) Erendira Marte: [facility] [Other] - 02/04/23 9:00 am (Follow-up appointment with psychiatric medication provider Appointment is by video (tele-health).) Tez,Alberto Talbert MD [Primary Care Provider] - 01/29/23 10:30 am (in office) Discharge Medications: New cyanocobalamin (vitamin B-12) [Vitamin B-12] 100 mcg Tablet 100 mcg PO DAILY Qty: 30 0RF Continued sertraline 100 mg tablet 150 mg PO QAM Qty: 45 0RF No Action lamotrigine 25 mg tablet 50 mg PO BEDTIME Patient Comments: Patient c/o of feeling increasingly tired and somewhat Lightheaded when taking Lamictal during the day. Per Myrna's instructions patient to take 50 mg at HS. Discharge Orders: Discharge Order (Routine); Ordered 01/18/23 Ordered By: Trini Cobb Diet: Advance to usual diet Activity on Discharge: As tolerated Stand Alone Forms: Patient Portal Discharge page, Community Support Care Plan Goals: Mood and Behavioral Stabilization Health Concerns: Mood and Behavioral Stabilization Plan of Treatment: Attend follow up appointments with providers as scheduled. Take medications as directed Call and or return as needed Assessment: Pt interviewed prior to discharge and found to be fully oriented and without SI/HI. Pt has insight and demonstrates good judgment in terms of wanting to pursue treatment. Pt is not in imminent risk of harm to self or others and has a safety plan that includes presenting to the closest ER or calling 911 if feeling unsafe. Pt has been observed closely by nursing and unit staff throughout admission. Pt has not engaged in any behaviors that suggest dangerousness to self or others and has demontrated appropriate behaviors and impulse control. Discharge Date/Time: 01/18/23 08:49
== END 2023-01-18 08:49 | disposition home or self-care (01) | DRG 885 ==
LOC: HO.ED 19:38 → HO.PM5 22:34
PROVIDERS: Physician Assistant; Admitting Provider Psychiatry & Neurology Psychiatry; Emergency Provider Emergency Medicine Emergency Medical Services; PCP Internal Medicine; Visit Provider Clinical Nurse Specialist Psychiatric/Mental Health, Adult
DX: F31.81 Bipolar II disorder (principal); R45.851 Suicidal ideations; Z20.822 Contact with and (suspected) exposure to COVID-19; Z86.73 Personal history of transient ischemic attack (TIA), and cerebral infarction without residual deficits; Z91.51 Personal history of suicidal behavior; Z90.13 Acquired absence of bilateral breasts and nipples; Z79.899 Other long term (current) drug therapy
CPT/HCPCS: 36415; 80048; 80061; 80076; 80143; 80179; 80307; 82077; 82607; 82746; 83036; 83735; 84439; 84443; 85025; 87635; 93005; 99285; S9485

== ENCOUNTER 2023-01-29 11:00 | Outpatient (RCR) | payer MEDICARE, MEDICAID, SELFPAY ==
--- NOTE | 2023-01-18 10:54 | HO.PS.ADMBH ---
HPI Date of Service: 01/18/23 Chief Complaint: MDD Sources of Information: patient interviewed, chart reviewed and crisis/core team assessment reviewed HPI Medical Problems Affecting Mental Status: No Narrative: Inpatient chart, and integrated clinician assessment reviewed prior to meeting with patient. Patient is a 42-year-old female, referred to partial program as a step-down from inpatient level of care at this hospital. She had been hospitalized from 12/31/22-01/18/2023 due to SI, and bipolar 2 disorder symptoms. PMH of CVA, breast cancer, depression, hemiparesis. She was hospitalized after her daughter found knives in her room, which she was intending to use to complete suicide. She lives with her and her 12-year-old daughter. Has multiple precipitants / current stressors, including finances, difficulty with her daughter, marital stressors, and her [id number] that lives next door, and whom she describes as extremely intrusive. She had also recently had an increase as outpatient with her sertraline dose, which appeared to have cause mood dysregulation. Denies any history of ashutosh, however does endorse periods of hypo manic symptoms, followed by periods of depression. Has strong family history of bipolar disorder, including her father, who completed suicide when she was a teen. First started therapy grade 10, after her father's . Remembers symptoms of anxiety and depression approximately age 10 or 11. While inpatient was started with mood stabilizer lamotrigine, currently receiving 50 mg daily. Continues with sertraline 150 mg. Although continues with symptoms of depression including feeling hopeless and helpless, fatigue, decreased energy, decreased appetite. She denies any thoughts of SI either active or passive at this time, and that she feels safe. As per into graded clinician assessment, she had stated that she feels situationally triggered at times, and that is when she begins to feel suicidal. States that it is usually in regards to actual or anticipated conflict with family members. Does have a history of SI attempt in 2019, resulted respite stay followed by [facility]. Reports that she was in this program in either 2018 or 2019, and found it helpful. She describes a supportive relationship with her stepfather, whom she is currently staying with. Her best friend lives 2 houses down from her stepfather, whom she also describes as supportive. She feels stable with current medications, has outpatient providers with scheduled appointments. Sees her therapist tomorrow at 15:00, sees her psychiatric provider Erendira Marte on 02/04 at 09:00. Is looking forward to participating in groups, as she has found them helpful when she was here in the past. Past Psychiatric History: IP: [place] [facility] [place] to [place] with plan/intent [facility] 2018-wrist cuts in a suicide attempt PHP X 2: once here, once at [facility]. OP ROSE[facility] Gutierrez for a few months for psychotherapy and [facility] Marte for psychopharmacology Trials: Sertraline, recently increased to 150 mg- she finds it helpful. 2018, mother in law who lives next to the family was causing stress. She is still there but less of a stress as she is managing her own medical issues Denies ashutosh hx, denies psychosis hx. Medical Evaluation Reviewed: Yes [facility] Medical History (Updated 01/18/23 @ 16:27 by Myrna Hernández) Achilles tendon injury CVA (cerebral vascular accident) Depression Foot drop, left History of breast cancer History of viral meningitis Hydrocephalus Irritable bowel syndrome Major depression Rib fracture Suicidal ideation Surgical History S/P mastectomy, bilateral Family History: Biological father with bipolar d/o suicided when pt was in her teens- Pt did not know her father well. Maternal uncle bipolar disorder 1 brother in recovery from alcohol. Social History: Born in [place], [place]. Father was in the . 3 brothers-one full, 2 half Raised in [facility] Parents when pt was age 2 Mom 2016-step dad is a good support. 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 Some difficulty with ambulation related to medical issues. Fully alert and oriented, fully participated in interview. Patient Appearance: Appropriate Patient Orientation: Person, Place, Time and Situation Level of Consciousness: Awake, Appropriate and Alert Patient Behavior: Appropriate, Cooperative and Good Eye Contact Mood Description: Depressed (states improving over past several weeks) Affect Description: Appropriate Patient Cognition Impaired: No Ability to Follow Directions: Good Speech Pattern: Clear and Appropriate Memory Description: Episodic Impaired Hallucinations: None Delusions: Not Present Thought Process: Intact Thought Content: positive for Intact Depressive Symptoms: Increased Anxiety, Changes in Appetite, Loss of Int. in Activity, Hopelessness, Unhappiness, Increased Fatigue, Thoughts of /Suicide (denies today, had SI with plan/intent recently) and Loss of Energy Judgement: Fair Assessment & Plan Assessment & Plan (1) Bipolar 2 disorder: Status: Acute Code(s): F31.81 - Bipolar II disorder Assessment and Plan: Patient is 42-year-old female, PMH of CVA, breast cancer, major depressive disorder, previous SI. Patient recently diagnosed with bipolar 2 disorder, while inpatient. Was suicidal, daughter found knives in her bedroom, patient had plan and intent at that time. Family history bipolar disorder, father suicided when patient was a teenager. While inpatient mood stabilizer lamotrigine was added, patient tolerating well. Current dose is 50 mg daily. Denies any side effects. We reviewed titration schedule. Patient continues with sertraline 150 mg daily at this time. Continues with some depression, but overall feels she is more stable. Denies any current SI at this time, states that she feels safe today. Continues with multiple stressors, will be staying with her stepfather for time being in his home. Describes him as supportive. Patient is engaged with outpatient providers, has upcoming appointments scheduled. She has participated in this PHP, as well as 1 at [facility], and found them helpful. She is looking forward to participating in groups while here, looking forward to the extra structure and support. Plan 1. Continue with current [facility] plan of care. 2. Continue with medications as currently prescribed. 3. Follow-up as per protocol. Patient educated on: diagnosis, medication risk/benefits and therapeutic strategies Informed Consent: understands Reason for continued partial hosp. stay Substantial Risk for: harm to self, inability to function, rapid decompensation and med/psych decompensation Certification I certify that partial hospital treatment is medically necessary due to the symptoms and problems resulting from the patient's mental illness and the failure to treat the patient at the partial hospital level of care would likely result in the patient requiring inpatient psychiatric care which could not be prevented at a less intensive level of care. Time Spent With Patient Time: Total time managing care of this patient today __55__ minutes.
[2023-01-18 13:04] VITALS: BP 120/66; PULSE 88; TEMP 36.9
[2023-01-18 13:08] VITALS: BMI 29.6
--- NOTE | 2023-01-18 13:45 | PC.ADMIT ---
Patient is a 42 year old female who was referred by [facility] where she was admitted d/t increased sxs of depression and SI. Patient reportedly was taken to the ER via ambulance d/t spouse finding knives that patient had in her bedroom with the intention of suicide thus admitted to inpatient level of care for safety and containment. Patient is alert and oriented x4. Calm and cooperative. She presents with depressed mood and affect. Denied SI or thoughts to kill herself. She reports her daughter is her protective factor as she stated she would not want to do that to her daughter. Medications reconciled with patient and inpatient d/c medical record. Patient reports she has not taken the am dose of Lamical as it makes her too tired and feels somewhat lightheaded and is only taking the HS dose. Myrna Hernández FORM PRESS OPERATOR is aware. Per Myrna's K instructions patient to take Lamictal at bedtime, 50 mg. Patient is aware.
--- NOTE | 2023-01-21 15:30 | HO.PHP ---
Clients case was reviewed and opened today in treatment team.
--- NOTE | 2023-01-29 11:08 | HO.PHPPROGNO ---
Subjective Subjective Date of Service: 01/29/23 Reason For Visit: MDD Interim History: pt has been generally more stable on lamictal sertraline denies active si less depressed Medication Compliance: Yes Attending Groups: Yes Mental Status Exam Mental Status Exam Patient Appearance: Appropriate Patient Orientation: Person, Place, Time and Situation Level of Consciousness: Awake, Appropriate and Alert Patient Behavior: Appropriate, Cooperative and Good Eye Contact Mood Description: Depressed (states improving over past several weeks) Affect Description: Appropriate Patient Cognition Impaired: No Ability to Follow Directions: Good Speech Pattern: Clear and Appropriate Memory Description: Episodic Impaired Hallucinations: None Delusions: Not Present Thought Process: Intact Thought Content: positive for Intact Depressive Symptoms: Increased Anxiety, Changes in Appetite, Loss of Int. in Activity, Hopelessness, Unhappiness, Increased Fatigue, Thoughts of /Suicide (denies today, had SI with plan/intent recently) and Loss of Energy Judgement: Fair Judgement and Insight: denies active si Diagnostics Vital Signs (24Hr): BMI result Body Mass Index 29.6 Assessment & Plan Assessment & Plan (1) Bipolar 2 disorder: Status: Acute Code(s): F31.81 - Bipolar II disorder Plan cont php tx medication Informed Consent: understands Certification I certify that partial hospital treatment is medically necessary due to the symptoms and problems resulting from the patient's mental illness and the failure to treat the patient at the partial hospital level of care would likely result in the patient requiring inpatient psychiatric care which could not be prevented at a less intensive level of care. Total time managing care of this patient today ____ minutes. Discharge Plan Discharge Attending provider: Seferino Wells Additional Instructions: Maria Del Carmen has a med provider, Erendira Marte, through [facility] and she is scheduled to meet with her on February 04, 2023 at 9 AM. Maria Del Carmen has an OP therapist , Navin Mancilla, through [facility], in which she has a scheduled appointment on February 02, 2023 at 3 PM. Maria Del Carmen has an upcoming physical with her primary care doctor, Dr. FLORES, at [facility] on February 11, 2023 at 1:30 PM. Medications: No Action cyanocobalamin (vitamin B-12) [Vitamin B-12] 100 mcg Tablet 100 mcg PO DAILY Qty: 30 0RF sertraline 100 mg tablet 150 mg PO QAM Qty: 45 0RF lamotrigine 25 mg tablet 50 mg PO BEDTIME Patient Comments: Patient c/o of feeling increasingly tired and somewhat Lightheaded when taking Lamictal during the day. Per Myrna's instructions patient to take 50 mg at HS. Stand Alone Forms: Patient Portal Discharge page Patient Education: Depression (DC)
== END 2023-01-29 23:59 | disposition home or self-care (01) ==
LOC: HO.PHPA 11:00
PROVIDERS: Visit Provider Psychiatry & Neurology Psychiatry
DX: F31.81 Bipolar II disorder (principal); Z79.899 Other long term (current) drug therapy
CPT/HCPCS: 90791; 90853

== ENCOUNTER → 2023-01-29 11:00 | Outpatient (BNV) | payer MEDICARE, MEDICAID, SELFPAY | PROVIDERS: Visit Provider Psychiatry & Neurology Psychiatry | DX: F31.81 Bipolar II disorder (principal) | CPT/HCPCS: 99212 ==

== ENCOUNTER 2023-04-29 14:18 | Outpatient (AMB) | payer MEDICARE, MEDICAID, SELFPAY ==
--- NOTE | 2023-04-29 14:27 | MHC.PC.OV ---
Vital Signs 04/29/23 14:28 Height 5 ft 2.5 in Weight 156 lb 6 oz BMI 28.1 BP 110/80 Blood Pressure Location Lt brachial Position Sitting Pulse 92 Pulse Source Pulse Oximeter Pulse Oximetry (%) 97 Oxygen Delivery Method Room Air Intake Visit Reasons: Left eye swollen, sore Java Lead Developer Required: No Accompanied by: Self / Same As Patient Allergies trazodone Adverse Reaction (Verified 04/29/23 14:28) Confusion Tobacco use date assessed: 04/29/23 Dental Screening Dental Screen Date: 04/29/23 Did you have a dental visit in the last 12 months?: Yes Did you have a dental problem in the last 6 months where you did not have access to dental care?: No Was dental information given to patient?: Patient has dentist HPI HPI Comments History of Present Illness Details 42-year-old female past medical history significant for left-sided hemiparesis, hyperlipidemia and bipolar type 2. Patient of DR. Reagan presents today for mild left eye swelling since this morning. on Exam patient was noted to have mild left upper lid hordelum. No surrounding erythema, or edema. FORMERLY [facility] Medical History (Updated 04/29/23 @ 15:11 by SANDY Serrano) Achilles tendon injury CVA (cerebral vascular accident) Depression Foot drop, left History of breast cancer History of viral meningitis Hydrocephalus Irritable bowel syndrome Major depression Rib fracture Suicidal ideation Surgical History S/P mastectomy, bilateral Family History Other Mental health disorder Suicidal ideation Social History (Updated 02/11/23 @ 13:35 by Tana Fernández [facility]) Household Members: Spouse and Children Housing: House Do you presently have visiting nurse or other home services: No Alcohol intake: never Patient Tobacco Use Status: Never used Tobacco e-Cigarette/Vaping Use: Never Used Second Hand Smoke Exposure: No service: No Current occupational status: unemployed Sexual orientation: Straight/Heterosexual Cognitive needs: Yes (cane) Hearing needs: No Vision needs: Yes Questionnaire PHQ-9 Over the last 2 weeks, how often have you been bothered by any of the following problems? 1. Little interest or pleasure in doing things: not at all 2. Feeling down, depressed, or hopeless: not at all 3. Trouble falling or staying asleep, or sleeping too much: not at all 4. Feeling tired or having little energy: not at all 5. Poor appetite or overeating: not at all 6. Feeling bad about yourself - or that you are a failure or have let yourself or your family down: not at all 7. Trouble concentrating on things, such as reading the newspaper or watching television: not at all 8. Moving or speaking so slowly that other people could have noticed. Or the opposite - being so fidgety or restless that you have been moving around a lot more than usual: not at all 9. Thoughts that you would be better off or of hurting yourself in some way: not at all Total score: 0 Depression Screening Interpretation: Negative Source: Developed by Drs. Jake Pollack, Kerrie Hamm, Rivas Brown and colleagues, with an educational luis a from [employer]. Thrive Questionnaire Date Thrive assessed: 04/29/23 I am a: Patient What is your living situation today?: I have a steady place to live Within the past 12 months, did the food you bought not last and you didn't have the money to get more?: Never true Within the past 12 months, did you worry whether your food would run out before you got money to buy more?: Never true Do you have trouble paying for medicines?: No Do you have trouble getting transportation to medical appointments?: No Do you have trouble paying your heating and electricity bill?: No Do you have trouble taking care of your child, family member or friend?: No Do you have trouble with day-to-day activities such as bathing, preparing meals, shopping, managing finances, etc.?: No Are you currently unemployed and looking for a job?: No Are you interested in more education?: No Please select the resources that you would like help with: None Currently or been in a relationship where the following occur: no concerns reported AUDIT C Alcohol Use Questionnaire (AUDIT-C) 1. How often do you have a drink containing alcohol?: Never 3. How often do you have six or more drinks on one occasion?: Never Total Score: 0 TYREE-7 AMB Questionnaire TYREE-7 Date TYREE - 7 assessed: 04/29/23 Feeling nervous, anxious, or on edge: 0 = Not at all Not being able to stop or control worryin = Not at all Worrying too much about different things: 0 = Not at all Trouble relaxin = Not at all Being so restless that it is hard to sit still: 0 = Not at all Becoming easily annoyed or irritable: 0 = Not at all Feeling afraid as if something awful might happen: 0 = Not at all Total TYREE-7 score (0-4 normal; 5-9 mild; 10-14 moderate; 15-21 severe): 0 Source: Developed by Drs. Jake Pollack, Kerrie Hamm, Rivas Brown and colleagues, with an educational luis a from [employer]. Review of Systems Const Denies chills, Denies fatigue, Denies fever(s) and Denies poor appetite Eyes Reports other (left eye lid pain since this morning ) Card Denies chest pain, Denies rapid heart rate and Denies dyspnea Resp Denies cough and Denies dyspnea Endo Denies fatigue Physical exam (Primary Care) Vital Signs: Last Vital Signs Pulse 92 04/29/23 14:28 BP 110/80 04/29/23 14:28 Pulse Ox 97 04/29/23 14:28 Oxygen Delivery Method Room Air 04/29/23 14:28 BMI result Body Mass Index 28.1 Tobacco/Smoking Status: Tobacco use Status Tobacco use date assessed 04/29/23 04/29/23 14:30 Patient Tobacco Use Status Never used Tobacco 04/29/23 14:30 e-Cigarette/Vaping Use Never Used 04/29/23 14:30 PHQ-9: PHQ-9 Score PHQ-9: Total score 0 04/29/23 14:30 Depression Screening Interpretation: Negative Thrive Assessment: Date of Thrive Assessment Date Thrive assessed 04/29/23 04/29/23 14:30 Currently or been in a relationship where the following occur: no concerns reported Const General: cooperative and no acute distress Orientation/consciousness: patient oriented x3 HENMT Head: Yes normocephalic and Yes atraumatic Eyes Eyelids: Yes eyelid abnormality (mild edema left upper lid, hordelum noted) Conjunctivae: conjunctivae normal Sclerae: sclerae normal Pupils: Equal, round and reactive pupils present EOM: EOMs intact bilaterally Chest Chest palpation & inspection: normal inspection of the chest Resp Effort & Inspection: normal respiratory effort Auscultation: clear to auscultation bilaterally, no crackles, no rhonchi and no wheezes Cardio Rate: regular rate Rhythm: regular rhythm Heart sounds: S1 normal heart sound present and S2 normal heart sound present Neuro General: patient oriented x3 Cranial nerves: Yes Equal, round and reactive pupils present Extrem General: No edema Assessment and Plan Assessment & Plan (1) Hordeolum externum of left lower eyelid: Code(s): H00.015 - Hordeolum externum left lower eyelid Plan: Patient advised to apply warm compresses to left upper and do gentle lid massage. Patient advised to with PCP if she develops any increased pain, swelling, redness or warmth to the eye. Patient agreeable with plan care. (2) Bipolar 2 disorder: Code(s): F31.81 - Bipolar II disorder Plan: Continue on current medications. Plan Keep scheduled follow-up with PCP or follow-up sooner if needed. Medications: Discontinued lamotrigine 25 mg PO BID 60 tabs 0RF Coding Level of Care Code Est Pt Level 3 (83982) Diagnoses Hordeolum externum of left lower eyelid H00.015 Bipolar 2 disorder F31.81
[2023-04-29 14:28] VITALS: BP 110/80; PULSE 92; O2SAT 97; BMI 28.1
== END 2023-04-29 15:24 | disposition home or self-care (01) ==
PROVIDERS: PCP Internal Medicine; Visit Provider Nurse Practitioner Family
DX: H00.015 Hordeolum externum left lower eyelid (principal); F31.81 Bipolar II disorder
CPT/HCPCS: 99213

== ENCOUNTER 2023-05-20 10:56 | Outpatient (AMB) | payer MEDICARE, MEDICAID, SELFPAY ==
[2023-05-20 11:04] VITALS: BP 122/80; PULSE 56; O2SAT 98; BMI 27.9
--- NOTE | 2023-05-20 11:04 | MHC.PC.OV ---
Vital Signs 05/20/23 11:04 Height 5 ft 2.5 in Weight 155 lb BMI 27.9 BP 122/80 Blood Pressure Location Lt brachial Position Sitting Pulse 56 Pulse Source Pulse Oximeter Temp Source Skin Pulse Oximetry (%) 98 Oxygen Delivery Method Room Air Intake Visit Reasons: Annual exam Intake Note: Patient is here today for a physical. 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 Required: No Allergies trazodone Adverse Reaction (Verified 05/20/23 11:04) Confusion Medication List - Last Reconciled 05/20/23 by Alberto Reagan MD cyanocobalamin (vitamin B-12) (Vitamin B-12) 100 mcg PO DAILY lurasidone 20 mg PO DAILY sertraline 150 mg (1.5 x 100 mg) PO QAM Tobacco use date assessed: 05/20/23 Dental Screening Dental Screen Date: 05/20/23 Did you have a dental visit in the last 12 months?: Yes Did you have a dental problem in the last 6 months where you did not have access to dental care?: No Was dental information given to patient?: Patient has dentist HPI Annual exam HPI Details 43-year-old overweight female with bipolar disorder last seen in April 2023 coming in for follow-up. Patient has a history of cholesterol problem. And history of breast cancer. Patient was seen by the nurse practitioner in 05/08/2023 due to 40 0 lobe of the left lower eyelid. Review of the notes follows up with hematology oncology for left breast DCIS 2019 had a left breast lumpectomy November 2018 and placed on tamoxifen. 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 Patient also has a history of CVA with hemorrhagic stroke 1996 following shunt revision with left hemiparesis history of hydrocephalus history of viral meningitis at 6-month-old patient has a left footdrop as well as left hemiparesis. [facility]LY [facility] Medical History (Updated 05/20/23 @ 11:55 by Alberto Reagan MD) CVA (cerebral vascular accident) Suicidal ideation Hydrocephalus Achilles tendon injury Rib fracture Irritable bowel syndrome Foot drop, left Major depression History of viral meningitis History of breast cancer Depression Surgical History S/P mastectomy, bilateral Family History (Updated 05/20/23 @ 11:44 by Alberto Reagan MD) Mother Breast cancer Maternal Grandfather Prostate cancer Other Mental health disorder Suicidal ideation Social History (Updated 05/20/23 @ 11:45 by Alberto Reagan MD) Household Members: Spouse and Children Housing: House Do you presently have visiting nurse or other home services: No Alcohol intake: never Patient Tobacco Use Status: Never used Tobacco e-Cigarette/Vaping Use: Never Used Second Hand Smoke Exposure: No service: No Current occupational status: unemployed Sexual orientation: Straight/Heterosexual Cognitive needs: Yes (cane) Hearing needs: No Vision needs: Yes Questionnaire PHQ-9 Over the last 2 weeks, how often have you been bothered by any of the following problems? 1. Little interest or pleasure in doing things: not at all 2. Feeling down, depressed, or hopeless: not at all 3. Trouble falling or staying asleep, or sleeping too much: not at all 4. Feeling tired or having little energy: not at all 5. Poor appetite or overeating: not at all 6. Feeling bad about yourself - or that you are a failure or have let yourself or your family down: not at all 7. Trouble concentrating on things, such as reading the newspaper or watching television: not at all 8. Moving or speaking so slowly that other people could have noticed. Or the opposite - being so fidgety or restless that you have been moving around a lot more than usual: not at all 9. Thoughts that you would be better off or of hurting yourself in some way: not at all Total score: 0 Depression Screening Interpretation: Negative Source: Developed by Drs. Jake Pollack, Kerrie Hamm, Rivas Brown and colleagues, with an educational luis a from [employer]. Thrive Questionnaire Date Thrive assessed: 04/29/23 AUDIT C Alcohol Use Questionnaire (AUDIT-C) 1. How often do you have a drink containing alcohol?: Never 3. How often do you have six or more drinks on one occasion?: Never Total Score: 0 TYREE-7 AMB Questionnaire TYREE-7 Date TYREE - 7 assessed: 05/20/23 Feeling nervous, anxious, or on edge: 0 = Not at all Not being able to stop or control worryin = Not at all Worrying too much about different things: 0 = Not at all Trouble relaxin = Not at all Being so restless that it is hard to sit still: 0 = Not at all Becoming easily annoyed or irritable: 0 = Not at all Feeling afraid as if something awful might happen: 0 = Not at all Total TYREE-7 score (0-4 normal; 5-9 mild; 10-14 moderate; 15-21 severe): 0 Source: Developed by Drs. Jake Pollack, Kerrie Hamm, Rivas Brown and colleagues, with an educational luis a from [employer]. Review of Systems Const Denies poor appetite and Denies weakness Eyes Denies no additional complaints ENT Reports Normal hearing present, Denies dizziness, Denies nasal congestion, Denies tinnitus and Denies sore throat Card Denies chest pain, Denies syncope, Denies rapid heart rate and Denies dyspnea Resp Denies cough and Denies dyspnea GI Denies change in stool character, Reports constipation, Denies diarrhea, Denies nausea and Denies vomiting Denies urinary frequency, Denies difficulty voiding and Denies dysuria Neuro Reports Normal hearing present, Denies confusion, Denies dizziness, Denies syncope and Denies weakness Psych Denies confusion Physical exam (Primary Care) Vital Signs: Last Vital Signs Pulse 56 05/20/23 11:04 BP 122/80 05/20/23 11:04 Pulse Ox 98 05/20/23 11:04 Oxygen Delivery Method Room Air 05/20/23 11:04 BMI result Body Mass Index 27.9 Tobacco/Smoking Status: Tobacco use Status Tobacco use date assessed 05/20/23 05/20/23 11:05 Patient Tobacco Use Status Never used Tobacco 05/20/23 11:05 e-Cigarette/Vaping Use Never Used 05/20/23 11:05 PHQ-9: PHQ-9 Score PHQ-9: Total score 0 05/20/23 11:12 Depression Screening Interpretation: Negative Thrive Assessment: Date of Thrive Assessment Date Thrive assessed 04/29/23 05/20/23 11:05 Const General: alert and awake; No confusion Orientation/consciousness: No confusion HENMT Head: Yes normocephalic Ears: external ears normal and TM's normal bilaterally Face and sinus: Yes normal facial exam Mouth: moist mucous membranes Throat: Yes tonsils normal Eyes Conjunctivae: conjunctivae normal Pupils: Equal, round and reactive pupils present and Pupil accommodation reflex normal Direct Ophthalmoscopy: normal light reflex Neck Neck: No lymphadenopathy Thyroid: Thyroid normal Chest Chest palpation & inspection: normal inspection of the chest Resp Effort & Inspection: normal respiratory effort and no audible wheezes Auscultation: clear to auscultation bilaterally, no crackles, no wheezes and lung sounds not diminished Cardio Rate: regular rate Rhythm: regular rhythm Peripheral pulses: radial pulses present and dorsalis pedis present GI Palpation (GI): no masses Auscultation: normal bowel sounds and normoactive bowel sounds Rectal Exam - Female: deferred Skin General skin exam: no rashes or lesions noted Rashes: no rashes Neuro Other: Left footdrop, left arm weakness 3-4/5 finger contracture and L elbow 90 degrees, L hip nomral elevation L foot drop General: No confusion Cranial nerves: Yes Equal, round and reactive pupils present, Yes Midline tongue present and Yes Normal hearing present Cognition (Neuro): normal cognition Extrem General: No edema Assessment and Plan Assessment & Plan (1) Annual physical exam: Code(s): Z00.00 - Encounter for general adult medical examination without abnormal findings (2) History of breast cancer: Comment: Left breast lumpectomy Dr. 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 Code(s): F31.81 - Bipolar II disorder (4) Hyperlipidemia: Code(s): E78.5 - Hyperlipidemia, unspecified (5) History of viral meningitis: Comment: at 6 months old, underwent brain surgery and now has brain shunt Dr. Carias neurosurgeon Code(s): Z86.61 - Personal history of infections of the central nervous system (6) Hydrocephalus: Comment: Multiple shunt revisions Code(s): G91.9 - Hydrocephalus, unspecified (7) CVA (cerebral vascular accident): Comment: Hemorrhagic stroke 1996 following shunt revision with left hemiparesis Code(s): I63.9 - Cerebral infarction, unspecified (8) Colon cancer screening: Code(s): Z12.11 - Encounter for screening for malignant neoplasm of colon Coding Level of Care Code Est Pt Prev Care 40-64y(35104) Diagnoses Annual physical exam Z00.00 History of breast cancer Z85.3 Bipolar 2 disorder F31.81 Hyperlipidemia E78.5 History of viral meningitis Z86.61 Hydrocephalus G91.9 CVA (cerebral vascular accident) I63.9 Colon cancer screening Z12.11
== END 2023-05-20 12:04 | disposition home or self-care (01) ==
PROVIDERS: PCP Internal Medicine; Visit Provider Internal Medicine
DX: Z00.00 Encounter for general adult medical examination without abnormal findings (principal); Z85.3 Personal history of malignant neoplasm of breast; F31.81 Bipolar II disorder; Z86.61 Personal history of infections of the central nervous system; G91.9 Hydrocephalus, unspecified; I63.9 Cerebral infarction, unspecified; E78.5 Hyperlipidemia, unspecified
CPT/HCPCS: 99396

== ENCOUNTER 2023-05-30 23:04 | Emergency (ER) | payer MEDICARE, MEDICAID, SELFPAY ==
[2023-05-30 23:09] VITALS: BP 152/101; PULSE 77; RESP 22; O2SAT 97; BMI 28.8
[2023-05-30 23:30] VITALS: BP 141/87; PULSE 68; RESP 20; O2SAT 98
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
[2023-05-30 23:44] LABS: Hematocrit 36.9 % (37.0-47.0); Hemoglobin 12.6 g/dl (12.0-16.0); Mean Corpuscular HGB Conc 34.1 g/dl (31.0-35.0); Mean Corpuscular Hemoglobin 27.9 pg (27.0-33.0); Mean Corpuscular Volume 81.8 fL (80.0-98.0); Mean Platelet Volume 9.6 fL (9.4-12.3); Platelet Count 246 X10*3/uL (160-400); Red Blood Count 4.51 X10*6/uL (4.20-5.50); Red Cell Distribution Width 14.3 % (11.0-16.0); White Blood Count 6.8 X10*3/uL (4.8-10.8)
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
[2023-05-30 23:57] LABS: Anion Gap 13 (12-20); Blood Urea Nitrogen 12 mg/dL (9-16); Calcium 8.9 mg/dL (8.4-10.2); Carbon Dioxide 22 mmol/L (22-29); Chloride 105 mmol/L (96-108); Creatinine Clr Calc Pharmacy 106.8; Estimated Glomerular Filt Rate > 60; Glucose Random 109 mg/dL (60-115); Potassium 3.7 mmol/L (3.3-5.1); Sodium 136 mmol/L (135-145)
[2023-05-31] MEDS: Tetracaine HCl/PF 0.5% Oph Sol 4 ML DROPS 3 DROP EYE-BOTH (00:38)
[2023-05-31] MEDS: Fluorescein Sodium STRIP 1 STRIP EYE-BOTH (00:38)
[2023-05-31] MEDS: Tobramycin Sulfate 0.3% Sol Op 5 ML BTL 2 DROP EYE-BOTH (00:44)
== END 2023-05-31 00:55 | disposition home or self-care (01) ==
PROVIDERS: Emergency Provider Internal Medicine
DX: S05.02XA Injury of conjunctiva and corneal abrasion without foreign body, left eye, initial encounter (principal); R45.851 Suicidal ideations; H10.212 Acute toxic conjunctivitis, left eye; X58.XXXA Exposure to other specified factors, initial encounter; Y93.9 Activity, unspecified; Y92.9 Unspecified place or not applicable; Y99.9 Unspecified external cause status; Z79.899 Other long term (current) drug therapy
CPT/HCPCS: 36415; 80048; 85027; 99284

== ENCOUNTER → 2023-07-22 10:45 | Outpatient (BNV) | payer MEDICARE, MEDICAID, SELFPAY | PROVIDERS: Visit Provider Psychiatry & Neurology Psychiatry | DX: F31.81 Bipolar II disorder (principal); F43.0 Acute stress reaction | CPT/HCPCS: 90792; 99213 ==

== ENCOUNTER 2023-08-13 09:45 | Outpatient (RCR) | payer MEDICARE, MEDICAID, SELFPAY ==
[2023-07-21 12:07] VITALS: BMI 28.3
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
--- NOTE | 2023-07-22 15:17 | HO.PHP ---
The clients case was reviewed and opened in treatment team.
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
--- NOTE | 2023-07-27 15:26 | HO.PHP ---
[facility] staff member followed up with Maria Del Carmen to explore if she would like supports within the home setting. Maria Del Carmen mentioned she was open to suggestions. [facility] staff member provided psycho-education around in home therapy to help with the family dynamic and daughters behaviors. Maria Del Carmen disclosed that DCF will be coming over tonight and will discuss with her if that is something she is interested in. [facility] staff was receptive.
--- NOTE | 2023-08-03 16:48 | HO.PHP ---
PHP staff member left a voice message for Maria Del Carmen to further discuss her discharge information since she won't be attending program tomorrow. PHP staff member is awaiting a call back.
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
--- NOTE | 2023-08-09 11:40 | HO.PHP ---
PHP staff member received a phone call from Maria Del Carmen's exploring why the program extended her stay. PHP staff member explored if Maria Del Carmen was aware of him calling, in which he replied she is unaware. PHP staff member asked Maria Del Carmen's , if he would be okay with me getting Maria Del Carmen to have her present for the phone conversation. Maria Del Carmen's was receptive. Once Maria Del Carmen was there, [facility] staff member explained to the the reason for an extension is due to missed days due to appointmnets and her noting some concerns where she appears to be struggling. PHP staff member mentioned that we want Maria Del Carmen to be able to get what she can from the program. Maria Del Carmen's started to discuss his needs and that they only have one vehicle so she may not be able to attend till Wednesday. PHP staff member acknowledged Maria Del Carmen's and voiced that if we need to alter the discharge date we could (Maria Del Carmen stated that to the clinician). Maria Del Carmen's stated that she can complete the program and he just wanted the team to be aware of what he is going through. PHP staff member was receptive.
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
== END 2023-08-13 23:59 | disposition home or self-care (01) ==
LOC: HO.PHPA 09:45
PROVIDERS: Visit Provider Psychiatry & Neurology Psychiatry
DX: F31.81 Bipolar II disorder (principal); F43.0 Acute stress reaction; F41.3 Other mixed anxiety disorders; Z63.9 Problem related to primary support group, unspecified; Z79.899 Other long term (current) drug therapy
CPT/HCPCS: 90791; 90853

== ENCOUNTER 2023-11-18 09:31 | Outpatient (AMB) | payer MEDICARE, MEDICAID, SELFPAY ==
[2023-11-18 09:42] VITALS: BP 102/68; PULSE 80; O2SAT 98; BMI 27.1
--- NOTE | 2023-11-18 09:42 | A.OFFPC_ITS ---
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: No Allergies trazodone Adverse Reaction (Verified 11/18/23 09:43) Confusion Medication List - Last Reconciled 11/18/23 by Alberto Reagan MD lurasidone 40 mg PO DAILY sertraline 150 mg (1.5 x 100 mg) PO QAM Tobacco use date assessed: 11/18/23 Dental Screening Dental Screen Date: 11/18/23 Did you have a dental visit in the last 12 months?: Yes Did you have a dental problem in the last 6 months where you did not have access to dental care?: No Was dental information given to patient?: Patient has dentist HPI 3M FU, rescheduled from 08/30 HPI Details 43-year-old overweight female with a his tory of breast cancer bipolar disorder hypercholesterolemia CVA hydrocephalus last seen in May 2023 having physical exam. Patient is here for follow-up. Patient was recently in the hospital in August bipolar disorder. Had an episode in May for chemical spray on her face rendering it photosensitive left eye had a corneal abrasion on the left eye [facility] Medical History CVA (cerebral vascular accident) Suicidal ideation Hydrocephalus Achilles tendon injury Rib fracture Irritable bowel syndrome Foot drop, left Major depression History of viral meningitis History of breast cancer Depression Surgical History S/P mastectomy, bilateral Family History Mother Breast cancer Maternal Grandfather Prostate cancer Other Mental health disorder Suicidal ideation Social History Household Members: Spouse, Family and Children Housing: House Do you presently have visiting nurse or other home services: No Alcohol intake: never Patient Tobacco Use Status: Never used Tobacco e-Cigarette/Vaping Use: Never Used Second Hand Smoke Exposure: No service: No Current occupational status: unemployed Sexual orientation: Straight/Heterosexual Cognitive needs: Yes (cane) Hearing needs: No Vision needs: Yes Questionnaire PHQ-9 Over the last 2 weeks, how often have you been bothered by any of the following problems? 1. Little interest or pleasure in doing things: not at all 2. Feeling down, depressed, or hopeless: not at all 3. Trouble falling or staying asleep, or sleeping too much: not at all 4. Feeling tired or having little energy: not at all 5. Poor appetite or overeating: not at all 6. Feeling bad about yourself - or that you are a failure or have let yourself or your family down: not at all 7. Trouble concentrating on things, such as reading the newspaper or watching television: not at all 8. Moving or speaking so slowly that other people could have noticed. Or the opposite - being so fidgety or restless that you have been moving around a lot more than usual: not at all 9. Thoughts that you would be better off or of hurting yourself in some way: not at all Total score: 0 Depression Screening Interpretation: Negative Depression Screening Done: Yes Source: Developed by Drs. Jake Pollack, Kerrie Hamm, Rivas Brown and colleagues, with an educational luis a from [employer]. Thrive Questionnaire Date Thrive assessed: 11/18/23 AUDIT C Alcohol Use Questionnaire (AUDIT-C) 1. How often do you have a drink containing alcohol?: Never 3. How often do you have six or more drinks on one occasion?: Never Total Score: 0 TYREE-7 AMB Questionnaire TYREE-7 Date TYREE - 7 assessed: 11/18/23 Feeling nervous, anxious, or on edge: 0 = Not at all Not being able to stop or control worryin = Not at all Worrying too much about different things: 0 = Not at all Trouble relaxin = Not at all Being so restless that it is hard to sit still: 0 = Not at all Becoming easily annoyed or irritable: 0 = Not at all Feeling afraid as if something awful might happen: 0 = Not at all Total TYREE-7 score (0-4 normal; 5-9 mild; 10-14 moderate; 15-21 severe): 0 Source: Developed by Drs. Jake Pollack, Kerrie Hamm, Rivas Brown and colleagues, with an educational luis a from [employer]. Physical exam (Primary Care) Vital Signs: Last Vital Signs Pulse 80 11/18/23 09:42 BP 102/68 11/18/23 09:42 Pulse Ox 98 11/18/23 09:42 Oxygen Delivery Method Room Air 11/18/23 09:42 BMI result Body Mass Index 27.1 Tobacco/Smoking Status: Tobacco use Status Tobacco use date assessed 11/18/23 11/18/23 09:46 Patient Tobacco Use Status Never used Tobacco 11/18/23 09:46 e-Cigarette/Vaping Use Never Used 11/18/23 09:46 PHQ-9: PHQ-9 Score PHQ-9: Total score 0 11/18/23 09:46 Depression Screening Interpretation: Negative Thrive Assessment: Date of Thrive Assessment Date Thrive assessed 11/18/23 11/18/23 09:46 Const Other: On a limp have left-sided weakness with contractures of the left hand as well as on the foot, has plastic brace to prevent footdrop on the left side. General: alert; No acute distress Eyes Conjunctivae: conjunctivae normal Resp Auscultation: clear to auscultation bilaterally Cardio Rate: regular rate Rhythm: regular rhythm GI Inspection: Yes normal to inspection Extrem Other: Left brace for the left footdrop, left hand contracture Assessment and Plan Assessment & Plan (1) History of breast cancer: Comment: Left breast lumpectomy Dr. 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 Code(s): S05.00XA - Injury of conjunctiva and corneal abrasion without foreign body, unspecified eye, initial encounter Plan: Resolved (6) Colon cancer screening: Code(s): Z12.11 - Encounter for screening for malignant neoplasm of colon Orders: Orders Complete Blood Count Auto Diff Today E78.5 - Hyperlipidemia, unspecified Comprehensive Met. Panel Today E78.5 - Hyperlipidemia, unspecified Free T4 (Free Thyroxine) Today E78.5 - Hyperlipidemia, unspecified Lipid Panel Today E78.00 - Pure hypercholesterolemia, unspecified, E78.5 - Hyperlipidemia, unspecified Vitamin B12 and Folate Today E78.5 - Hyperlipidemia, unspecified Thyroid Stimulating Hormone Today E78.5 - Hyperlipidemia, unspecified Vitamin D 25-OH Total Today E78.5 - Hyperlipidemia, unspecified Referrals Gastroenterology Referral Z12.11 - Encounter for screening for malignant neoplasm of colon Coding Level of Care Code Est Pt Level 4 (04793) Diagnoses History of breast cancer Z85.3 Hyperlipidemia E78.5 Bipolar 2 disorder F31.81 CVA (cerebral vascular accident) I63.9 Corneal abrasion S05.00XA Colon cancer screening Z12.11
== END 2023-11-18 10:50 | disposition home or self-care (01) ==
PROVIDERS: PCP Internal Medicine; Visit Provider Internal Medicine
DX: E78.5 Hyperlipidemia, unspecified (principal); F31.81 Bipolar II disorder; Z85.3 Personal history of malignant neoplasm of breast; I69.354 Hemiplegia and hemiparesis following cerebral infarction affecting left non-dominant side
CPT/HCPCS: 99214

== ENCOUNTER → 2023-12-15 07:41 | Outpatient (BNVA) | payer MEDICARE, MEDICAID, SELFPAY | PROVIDERS: PCP Internal Medicine; Visit Provider Nurse Practitioner Family ==

== ENCOUNTER 2024-04-12 07:55 | Day surgery (SDC) | payer MEDICARE, MEDICAID, SELFPAY ==
[2024-04-10 14:20] VITALS: BMI 27.4
--- NOTE | 2024-04-10 14:31 | HO.ANESPROP2 ---
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 MASTER shunt with multiple revisions PMFSH Active Problems Active Problems: All Active Problems Corneal abrasion (Acute) Family problems (Acute) Other mixed anxiety disorders (Acute) Stress reaction causing mixed disturbance of emotion and conduct (Acute) Colon cancer screening (Acute) Annual physical exam (Acute) Hordeolum externum of left lower eyelid (Acute) Bipolar 2 disorder (Acute) Obesity (BMI 30-39.9) (Acute) Hyperlipidemia (Acute) Adult general medical exam (Acute) Hemiparesis (Acute) History of viral meningitis (Acute) Hydrocephalus (Acute) CVA (cerebral vascular accident) (Acute) History of breast cancer (Acute) Past Medical History Medical History Suicidal ideation Hydrocephalus CVA (cerebral vascular accident) Achilles tendon injury Rib fracture Irritable bowel syndrome Foot drop, left Major depression History of viral meningitis History of breast cancer Depression Family History Family History Mother Breast cancer Maternal Grandfather Prostate cancer Other Mental health disorder Suicidal ideation Surgical History Surgical History Hx of brain surgery S/P mastectomy, bilateral Social History Social History Household Members: Spouse, Family and Children Housing: House Do you presently have visiting nurse or other home services: No Alcohol intake: never Patient Tobacco Use Status: Never used Tobacco e-Cigarette/Vaping Use: Never Used Second Hand Smoke Exposure: No Use of substances other than those prescribed or required for medical reasons: No Are you DNR?: No Advance Directives: No Advance Directives Information Provided: Yes Patient : No (UCG pending) service: No Current occupational status: unemployed Sexual orientation: Straight/Heterosexual Cognitive needs: Yes (cane) Hearing needs: No Vision needs: Yes Meds Allergies Allergy/AdvReac Type Severity Reaction Status Date / Time trazodone AdvReac Confusion Verified 12/15/23 07:54 Home Medications ?Medication ?Instructions ?Recorded ?Confirmed ?Last Taken ?Type lurasidone 40 mg tablet 40 mg PO DAILY 1111/18/23 07/20/23 18:00 History Exam Height,Weight and Vital Signs: Height 5 ft 2 in Weight 68.039 kg Assessment and Plan Assessment Anesthesia Assessment: Chart Reviewed Documented by User: Sonia Garcia MD 04/12/24 08:35 PMF Past Medical History Medical History Suicidal ideation Hydrocephalus CVA (cerebral vascular accident) Achilles tendon injury Rib fracture Irritable bowel syndrome Foot drop, left Major depression History of viral meningitis History of breast cancer Depression Family History Family History Mother Breast cancer Maternal Grandfather Prostate cancer Other Mental health disorder Suicidal ideation Family history of problems with anesthesia: No Surgical History Surgical History Hx of brain surgery S/P mastectomy, bilateral History of Problems with Anesthesia: No Social History Social History Household Members: Spouse, Family and Children Housing: House Do you presently have visiting nurse or other home services: No Alcohol intake: never Patient Tobacco Use Status: Never used Tobacco e-Cigarette/Vaping Use: Never Used Second Hand Smoke Exposure: No Use of substances other than those prescribed or required for medical reasons: No Are you DNR?: No Advance Directives: No Advance Directives Information Provided: Yes Patient : No ([facility] pending) service: No Current occupational status: unemployed Sexual orientation: Straight/Heterosexual Cognitive needs: Yes (cane) Hearing needs: No Vision needs: Yes Meds Allergies Allergy/AdvReac Type Severity Reaction Status Date / Time trazodone AdvReac Confusion Verified 12/15/23 07:54 Home Medications ?Medication ?Instructions ?Recorded ?Confirmed ?Last Taken ?Type lurasidone 40 mg tablet 40 mg PO DAILY 07/21/23 11/18/23 07/20/23 18:00 History Exam Airway Mallampati Class: II TM Dist: >3cm Neck ROM: Full Heart: rrr Lungs: cta Assessment and Plan Assessment Anesthesia Assessment: Anesthesia Plan Discussed Final Anesthetic Review Family History of Problems with Anesthesia: No History of Problems with Anesthesia: No NPO: Yes ASA Class: III Final Preanesthetic Review: No Changes in Pt Med Stat, Meds/Allgs Chart Reviewed, Consent Obtained/Reviewed and Anes Risks/Benef Reviewed Patient Risk: Intermediate Procedure Risk: Low Anesthetic Plan Anesthetic Plan: MAC: Disposition: Standard PACU
[2024-04-12 08:09] VITALS: BMI 26.4
[2024-04-12 08:11] LABS: UPreg QC Valid YES; Urine Pregnancy NEGATIVE (NEGATIVE)
[2024-04-12 08:24] VITALS: BP 108/72; PULSE 68; RESP 16; TEMP 36.6; O2SAT 96
--- NOTE | 2024-04-12 08:27 | MHC.SHP ---
Pre-Procedural Eval Section A - 24 Hr Update-Section A only Date of Service: 04/12/24 Section B - Complete if H&P > 30 days Chief Complaint: screening Relevant Family History (Specify if Yes): No Relevant Social History: None Present Medications: see Short Stay Collaborative assessment Medical History: Significant History (Suicidal ideation Hydrocephalus CVA (cerebral vascular accident) Achilles tendon injury Rib fracture Irritable bowel syndrome Foot drop, left Major depression History of viral meningitis History of breast cancer Depression) History of Previous Operations: Relevant previous surgery/procedure and date(s) (Hx of brain surgery S/P mastectomy, bilateral) Allergies: Allergies Allergy/AdvReac Type Severity Reaction Status Date / Time trazodone AdvReac Confusion Verified 12/15/23 07:54 Review of Systems Sugical H&P ROS: Negative: Constitution, Cardiovascular, Respiratory, Neurological, Psychiatric, Hem-Onc, Allergic/Immunologic, Gastrointestinal, Genitourinary, Musculoskeletal, Integumentary, Endocrine and Eyes/Ears/Nose/Throat Exam Surgical H&P Exam: Normal: HEENT, Normal: Heart, Normal: Lungs, Normal: Extremities, Normal: Abdomen, Normal: Skin and Normal: Neurological Plan Diagnosis/Plan: Unchanged I have reviewed the history and physical and performed a pertinent physical examination on my patient. No changes have occurred unless specified. Time Spent With Patient Time: Total time managing care of this patient today ____ minutes.
[2024-04-12] MEDS: Lactated Ringers 1,000 ML 100 ML IVCONT (08:36)
--- NOTE | 2024-04-12 08:55 | HO.OPN-COLON ---
Colonoscopy Operative Note Operative Note Date of Service: 04/12/24 Narrative: Operative Information Procedure Description: Colonoscopy Indication: screening Anesthesia: MAC COLONOSCOPY Instrument: Olympus variable stiffness pediatric scope 190L Colonoscopy Monitoring: Vital signs and clinical assessment, continuous EKG monitoring, Pulse oximetry, Carbon Dioxide monitoring and blood pressure monitoring were done throughout the procedure. Colon withdrawal time was 9 minutes. Procedure: The patient was placed in the left lateral decubitis position and pre-procedure medications were administered. After a digital rectal examination of the ano-rectum, the video colonoscope was inserted into the rectum and advanced through the colon to the cecum/TI. The colonoscope was slowly withdrawn in a retrograde panoramic fashion and the colon mucosa was carefully examined including a retroflexed view of the rectum. Findings and interventions are described below. Procedure Difficulty: moderate- pressure applied, redundant colon Findings: Terminal Ileum- not intubated Cecum:normal Ascending Colon: normal Transverse Colon -normal Descending Colon:normal Sigmoid Colon: moderate diverticulosis Rectum: Retroflexion with small internal hemorrhoids seen, grade I Anorectum - normal Intervention: none Colon preparation: [place] Bowel Preparation Scale Right colon; 2 Transverse colon: 2 Left colon; 2 (0 = Unprepared colon segment with mucosa not seen due to solid stool that cannot be cleared. 1 = Portion of mucosa of the colon segment seen, but other areas of the colon segment not well seen due to staining, residual stool and/or opaque liquid. 2 = Minor amount of residual staining, small fragments of stool and/or opaque liquid, but mucosa of colon segment seen well. 3 = Entire mucosa of colon segment seen well with no residual staining, small fragments of stool or opaque liquid) Impression and Post Procedure Diagnosis: diverticulosis internal hemorrhoids Plan: High fiber diet leaflet Avoid straining at stool, epsom salts and sitz bath, anusol supps or cream Repeat Colonoscopy in 10 years or earlier if clinically indicated Above findings were reviewed with the patient and relevant handouts were provided if indicated.
[2024-04-12 09:31] VITALS: BP 91/46; PULSE 68; RESP 16; TEMP 36.3; O2SAT 97
[2024-04-12 09:45] VITALS: BP 102/51; PULSE 62; RESP 16; TEMP 36.1; O2SAT 97
== END 2024-04-12 12:00 | disposition home or self-care (01) ==
PROVIDERS: Nurse Practitioner; PCP Internal Medicine; Visit Provider Internal Medicine Gastroenterology
PROC: 0DJD8ZZ Inspection of Lower Intestinal Tract, Via Natural or Artificial Opening Endoscopic (ICD-10-PCS; CPT 45378; principal; 2024-04-12 09:10)
DX: Z12.11 Encounter for screening for malignant neoplasm of colon (principal); K57.30 Diverticulosis of large intestine without perforation or abscess without bleeding; K64.0 First degree hemorrhoids; K58.9 Irritable bowel syndrome, unspecified; G91.9 Hydrocephalus, unspecified; M21.372 Foot drop, left foot; F32.9 Major depressive disorder, single episode, unspecified; Z86.73 Personal history of transient ischemic attack (TIA), and cerebral infarction without residual deficits; R45.851 Suicidal ideations; Z85.3 Personal history of malignant neoplasm of breast; Z79.899 Other long term (current) drug therapy; Z88.8 Allergy status to other drugs, medicaments and biological substances; Z98.890 Other specified postprocedural states; Z56.0 Unemployment, unspecified
CPT/HCPCS: G0121; 81025; J2704

== ENCOUNTER → 2024-04-12 07:55 | Outpatient (BNV) | payer MEDICARE, MEDICAID, SELFPAY | PROVIDERS: PCP Internal Medicine; Visit Provider Internal Medicine Gastroenterology | DX: Z12.11 Encounter for screening for malignant neoplasm of colon (principal); K57.30 Diverticulosis of large intestine without perforation or abscess without bleeding; K64.0 First degree hemorrhoids | CPT/HCPCS: G0121 ==

== ENCOUNTER 2024-04-26 08:09 | Outpatient (AMB) | payer MEDICARE, MEDICAID, SELFPAY ==
--- NOTE | 2024-04-26 08:13 | A.OFFVIS_ITS ---
Vital Signs 04/26/24 08:15 Height 5 ft 2 in Weight 138 lb 0.15 oz BMI 25.2 BP 114/74 Blood Pressure Location Lt brachial Position Sitting Pulse 76 Pulse Source Pulse Oximeter Pulse Oximetry (%) 97 Oxygen Delivery Method Room Air Intake Visit Reasons: s/p colon Intake Note: Maria Del Carmen presents in office today for a scheduled post op FUV. CC; Pt denies any complications or new concerns post op. Pt is here to discuss the results of their s/p. Lard Mixer Required: No Allergies trazodone Adverse Reaction (Verified 04/26/24 08:18) Confusion HPI HPI s/p colon: Details: LAST VISIT Colon cancer screening Plan Patient denies any GI, cardiac or respiratory symptoms. ?Denies any issues with anesthesia in the past.? Denies any history of sleep apnea.? No history infectious diseases in the past or present.? Not on any anticoagulation therapy.? No family or personal history of colon cancer or polyps.? Patient denies melena, hematochezia, unintentional weight loss or ribbon like stools.? Discussed at length the pre-procedure,? prep, diet & medications as well as what to expect prior, during and after the procedure.?? Stressed the importance of good bowel prep. ?Recommended the use of Vaseline or Calmoseptine OTC & baby wipes with bowel movements to promote comfort.? ?Patient verbalizes understanding and agrees to plan of care.? She was given the opportunity to ask questions and all questions answered.? We will see her after the procedure.? Medications New bisacodyl (Dulcolax (bisacodyl)) take 4 tabs at noon the day before your colonoscopy 20 mg (4 x 5 mg) PO ONCE 1 day 4 tabs 0RF Z12.11 polyethylene glycol 3350 (Miralax) As directed by gastroenterology department at [facility] 238 grams PO ONCE 238 grams 0RF Z12.11 COLONOSCOPY Findings: Terminal Ileum- not intubated Cecum:normal Ascending Colon: normal Transverse Colon -normal Descending Colon:normal Sigmoid Colon: moderate diverticulosis Rectum: Retroflexion with small internal hemorrhoids seen, grade I Anorectum - normal Intervention: none Colon preparation: [place] Bowel Preparation Scale Right colon; 2 Transverse colon: 2 Left colon; 2 (0 = Unprepared colon segment with mucosa not seen due to solid stool that cannot be cleared. 1 = Portion of mucosa of the colon segment seen, but other areas of the colon segment not well seen due to staining, residual stool and/or opaque liquid. 2 = Minor amount of residual staining, small fragments of stool and/or opaque liquid, but mucosa of colon segment seen well. 3 = Entire mucosa of colon segment seen well with no residual staining, small fragments of stool or opaque liquid) Impression and Post Procedure Diagnosis: diverticulosis internal hemorrhoids Plan: High fiber diet leaflet Avoid straining at stool, epsom salts and sitz bath, anusol supps or cream Repeat Colonoscopy in 10 years or earlier if clinically indicated TODAY'S VISIT Patient is here today for follow-up and to discuss colonoscopy results. Patient denies any ill effects from the prep, anesthesia or procedure itself. Patient reports that she has been doing well. Denies melena, hematochezia. Reports that she is moving her bowels well without any issues. Denies any GI concerning symptoms. Patient had no polyps, diverticulosis found in sigmoid colon. Patient reports that she is eating Activia yogurt and is eating fair amount of fiber daily. [facility] Medical History (Updated 04/26/24 @ 09:[address] [facility]) Diverticulosis Suicidal ideation Hydrocephalus CVA (cerebral vascular accident) Achilles tendon injury Rib fracture Irritable bowel syndrome Foot drop, left Major depression History of viral meningitis History of breast cancer Depression Surgical History Hx of brain surgery S/P mastectomy, bilateral Family History Mother Breast cancer Maternal Grandfather Prostate cancer Other Mental health disorder Suicidal ideation Social History Household Members: Spouse, Family and Children Housing: House Do you presently have visiting nurse or other home services: No Alcohol intake: never Patient Tobacco Use Status: Never used Tobacco e-Cigarette/Vaping Use: Never Used Second Hand Smoke Exposure: No service: No Current occupational status: unemployed Sexual orientation: Straight/Heterosexual Cognitive needs: Yes (cane) Hearing needs: No Vision needs: Yes Review of Systems Const Denies weight gain and Denies weight loss ENT Reports no additional complaints, Denies dysphagia and Denies odynophagia Card Reports no additional complaints Resp Reports no additional complaints GI Denies abdominal pain, Denies belching, Denies melena, Denies bloating, Denies change in bowel habits, Denies dysphagia, Denies excessive flatus, Denies dyspepsia, Denies heartburn, Denies diarrhea, Denies loose stools, Denies nausea, Denies odynophagia and Denies vomiting Reports no additional complaints Musc Reports no additional complaints Neuro Reports no additional complaints Psych Reports no additional complaints Endo Reports no additional complaints Physical Exam Vital Signs: Last Vital Signs Pulse 76 04/26/24 08:15 BP 114/74 04/26/24 08:15 Pulse Ox 97 04/26/24 08:15 Oxygen Delivery Method Room Air 04/26/24 08:15 BMI result Body Mass Index 25.2 Const Other: Left-sided weakness General: no acute distress and well developed Nutritional Appearance: well nourished Orientation/consciousness: patient oriented x3 Resp Effort & Inspection: normal respiratory effort, able to speak in complete sentences, no tracheal deviation and symmetric chest movement Auscultation: clear to auscultation bilaterally Cardio Rate: regular rate GI Inspection: Yes normal to inspection and No distended Palpation (GI): Soft to palpation, not firm, nontender and No hepatosplenomegaly present Auscultation: normal bowel sounds General: Yes no CVA tenderness Back/Spine/Pelvis Back: no CVA tenderness Skin General skin exam: elasticity normal, turgor normal and dry skin Neuro General: patient oriented x3 Psych Appearance: grossly normal Mental Status: mental status grossly normal Assessment & Plan Assessment & Plan (1) Diverticulosis: Code(s): K57.90 - Diverticulosis of intestine, part unspecified, without perforation or abscess without bleeding Category: Medical (2) Status post colonoscopy: Code(s): Z98.890 - Other specified postprocedural states Plan Normal colonoscopy, moderate diverticulosis in sigmoid colon. High-fiber diet recommended and probiotics. List of food high in fiber given to patient. Patient denies any family history of CRC. Asymptomatic screening for healthy adult intelligence years sooner if clinically necessary. Patient is agreeable to this plan and verbalizes understanding of instructions. She was given the opportunity to ask questions and all questions answered. Thank you for allowing me to participate in her care Coding Level of Care Code Est Pt Level 3 (48814) Diagnoses Diverticulosis K57.90 Status post colonoscopy Z98.890 Time Spent (min) 25 Comment 15 minutes spent with patient and additional 10 minutes spent reviewing her records
[2024-04-26 08:15] VITALS: BP 114/74; PULSE 76; O2SAT 97; BMI 25.2
== END 2024-04-26 09:23 | disposition home or self-care (01) ==
PROVIDERS: PCP Internal Medicine; Visit Provider Nurse Practitioner Family
DX: K57.90 Diverticulosis of intestine, part unspecified, without perforation or abscess without bleeding (principal); Z98.890 Other specified postprocedural states
CPT/HCPCS: 99213

== ENCOUNTER → 2024-04-26 08:09 | Outpatient (BNVA) | payer MEDICARE, MEDICAID, SELFPAY | PROVIDERS: PCP Internal Medicine; Visit Provider Nurse Practitioner Family | DX: K57.90 Diverticulosis of intestine, part unspecified, without perforation or abscess without bleeding (principal); Z98.890 Other specified postprocedural states | CPT/HCPCS: 99212 ==

== ENCOUNTER 2024-05-23 11:01 | Outpatient (AMB) | payer MEDICARE, MEDICAID, SELFPAY ==
[2024-05-23 11:22] VITALS: BP 116/82; PULSE 79; O2SAT 99; BMI 25.8
--- NOTE | 2024-05-23 11:22 | MHC.PC.OV ---
Vital Signs 05/23/24 11:22 Height 5 ft 2 in Weight 141 lb BMI 25.8 BP 116/82 Blood Pressure Location Rt brachial Position Sitting Pulse 79 Pulse Source Pulse Oximeter Pulse Oximetry (%) 99 Oxygen Delivery Method Room Air Intake Visit Reasons: pe [employer] Required: No Allergies trazodone Adverse Reaction (Verified 05/23/24 11:23) Confusion Medication List - Last Reconciled 05/23/24 by Alberto Reagan MD lurasidone 40 mg PO DAILY sertraline 150 mg (1.5 x 100 mg) PO QAM Tobacco use date assessed: 11/18/23 Dental Screening Dental Screen Date: 11/18/23 Did you have a dental visit in the last 12 months?: Yes Did you have a dental problem in the last 6 months where you did not have access to dental care?: No Was dental information given to patient?: Patient has dentist HPI pe HPI Details 44-year-old female with a history of breast cancer hypercholesterolemia history of CVA and bipolar disorder coming in for physical exam last seen in 12/01/2023. Patient's colonoscopy is up-to-date 04/01/2024. Patient has followed up in April 26 with Gastroenterology diverticulosis and internal hemorrhoids 10 years [facility] Medical History (Updated 04/26/24 @ 09:42 by Liberty Florez [facility]) Diverticulosis Suicidal ideation Hydrocephalus CVA (cerebral vascular accident) Achilles tendon injury Rib fracture Irritable bowel syndrome Foot drop, left Major depression History of viral meningitis History of breast cancer Depression Surgical History Hx of brain surgery S/P mastectomy, bilateral Family History Mother Breast cancer Maternal Grandfather Prostate cancer Other Mental health disorder Suicidal ideation Social History Household Members: Spouse, Family and Children Housing: House Do you presently have visiting nurse or other home services: No Alcohol intake: never Patient Tobacco Use Status: Never used Tobacco e-Cigarette/Vaping Use: Never Used Second Hand Smoke Exposure: No service: No Current occupational status: unemployed Sexual orientation: Straight/Heterosexual Cognitive needs: Yes (cane) Hearing needs: No Vision needs: Yes Questionnaire PHQ-9 Over the last 2 weeks, how often have you been bothered by any of the following problems? 1. Little interest or pleasure in doing things: not at all 2. Feeling down, depressed, or hopeless: not at all 3. Trouble falling or staying asleep, or sleeping too much: not at all 4. Feeling tired or having little energy: not at all 5. Poor appetite or overeating: not at all 6. Feeling bad about yourself - or that you are a failure or have let yourself or your family down: not at all 7. Trouble concentrating on things, such as reading the newspaper or watching television: not at all 8. Moving or speaking so slowly that other people could have noticed. Or the opposite - being so fidgety or restless that you have been moving around a lot more than usual: not at all 9. Thoughts that you would be better off or of hurting yourself in some way: not at all Total score: 0 Source: Developed by Drs. Jake Pollack, Kerrie Hamm, Rivas Brown and colleagues, with an educational luis a from [employer]. Thrive Questionnaire Date Thrive assessed: 05/21/24 I am a: Patient What is your living situation today?: I have a steady place to live Within the past 12 months, did the food you bought not last and you didn't have the money to get more?: Sometimes True Within the past 12 months, did you worry whether your food would run out before you got money to buy more?: Sometimes True Do you have trouble paying for medicines?: No Do you have trouble getting transportation to medical appointments?: No Do you have trouble paying your heating and electricity bill?: Yes Do you have trouble taking care of your child, family member or friend?: No Do you have trouble with day-to-day activities such as bathing, preparing meals, shopping, managing finances, etc.?: No Are you currently unemployed and looking for a job?: I choose not to answer this question Are you interested in more education?: No Please select the resources that you would like help with: Food, Transportation and Utilities Currently or been in a relationship where the following occur: No concerns reported THRIVE Score: 3 AUDIT C Alcohol Use Questionnaire (AUDIT-C) 1. How often do you have a drink containing alcohol?: Never 2. How many drinks containing alcohol do you have on a typical day when you are drinking?: 1 or 2 3. How often do you have six or more drinks on one occasion?: Never Total Score: 0 TYREE-7 AMB Questionnaire TYREE-7 Date TYREE - 7 assessed: 11/18/23 Feeling nervous, anxious, or on edge: 1 = Several days Not being able to stop or control worryin = Not at all Worrying too much about different things: 1 = Several days Trouble relaxin = Several days Being so restless that it is hard to sit still: 1 = Several days Becoming easily annoyed or irritable: 0 = Not at all Feeling afraid as if something awful might happen: 0 = Not at all Total TYREE-7 score (0-4 normal; 5-9 mild; 10-14 moderate; 15-21 severe): 4 Source: Developed by Drs. Jake Pollack, Kerrie Hamm, Rivas Brown and colleagues, with an educational luis a from [employer]. Review of Systems Const Denies poor appetite and Denies weakness Eyes Denies no additional complaints ENT Reports Normal hearing present, Denies dizziness, Denies nasal congestion, Denies tinnitus and Denies sore throat Card Denies chest pain, Denies syncope, Denies rapid heart rate and Denies dyspnea Resp Denies cough and Denies dyspnea GI Denies change in stool character, Reports constipation, Denies diarrhea, Denies nausea and Denies vomiting Denies urinary frequency, Denies difficulty voiding and Denies dysuria Neuro Reports Normal hearing present, Denies confusion, Denies dizziness, Denies syncope and Denies weakness Psych Denies confusion Physical exam (Primary Care) Vital Signs: Oxygen Delivery Method Room Air 05/23/24 11:22 Tobacco/Smoking Status: Tobacco use Status Tobacco use date assessed 11/18/23 11/18/23 09:46 Patient Tobacco Use Status Never used Tobacco 04/12/24 09:30 e-Cigarette/Vaping Use Never Used 11/18/23 09:46 Thrive Assessment: Date of Thrive Assessment Date Thrive assessed 05/21/24 05/21/24 12:29 Currently or been in a relationship where the following occur: No concerns reported Const General: No confusion Orientation/consciousness: No confusion HENMT Head: Yes normocephalic Ears: external ears normal and TM's normal bilaterally Face and sinus: Yes normal facial exam Mouth: moist mucous membranes Throat: Yes tonsils normal Eyes Conjunctivae: conjunctivae normal Pupils: Equal, round and reactive pupils present and Pupil accommodation reflex normal Direct Ophthalmoscopy: normal light reflex Neck Neck: No lymphadenopathy Thyroid: Thyroid normal Chest Chest palpation & inspection: normal inspection of the chest Resp Effort & Inspection: normal respiratory effort and no audible wheezes Auscultation: clear to auscultation bilaterally, no crackles, no wheezes and lung sounds not diminished Cardio Rate: regular rate Rhythm: regular rhythm Peripheral pulses: radial pulses present and dorsalis pedis present GI Palpation (GI): no masses Auscultation: normal bowel sounds and normoactive bowel sounds Rectal Exam - Female: deferred Skin General skin exam: no rashes or lesions noted Rashes: no rashes Neuro Other: L wrist contracture, L leg with AFO brace L 4/5 strength, L shoulder shrug 4/5 Right is normal General: No confusion Cranial nerves: Yes Equal, round and reactive pupils present and Yes Normal hearing present Cognition (Neuro): normal cognition Deep tendon reflexes (DTR's): Right brachioradialis reflex intensity grade: 2+, Left brachioradialis reflex intensity grade: 2+, Right patellar reflex intensity grade: 2+ and Left patellar reflex intensity grade: 2+ Extrem General: No edema Assessment and Plan Assessment & Plan (1) Annual physical exam: Code(s): Z00.00 - Encounter for general adult medical examination without abnormal findings Plan: Patient is advised to eat healthy, keep well hydrated, keep active and have adequate sleep. (2) Hyperlipidemia: Code(s): E78.5 - Hyperlipidemia, unspecified Plan: Avoid fried foods, chicken skin, eggs, butter margarine, pastries and meat. Be it pork or beef they have a lot of cholesterol LDL goal of less than 130 and triglyceride of less than 150. Advised to get blood work done. 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
== END 2024-05-23 12:38 | disposition home or self-care (01) ==
PROVIDERS: PCP Internal Medicine; Visit Provider Internal Medicine
DX: Z00.00 Encounter for general adult medical examination without abnormal findings (principal); I63.9 Cerebral infarction, unspecified; F31.81 Bipolar II disorder; E78.5 Hyperlipidemia, unspecified; Z85.3 Personal history of malignant neoplasm of breast
CPT/HCPCS: 99396

== ENCOUNTER 2024-05-29 08:03 | Outpatient (REF) | payer MEDICARE, MEDICAID, SELFPAY ==
[2024-05-29 08:25] LABS: MANUAL DIFF FLAG NO
[2024-05-29 09:00] LABS: Eosinophils Absolute Auto 0.1 X10*3/uL (0.0-0.4); Eosinophils Percent Auto 2.3 % (0-4); Hematocrit 40.3 % (37.0-47.0); Hemoglobin 13.2 g/dl (12.0-16.0); Imm Gran Abs Auto 0.01 X10*3/uL (0.00-0.03); Imm Gran Pct Auto 0.3 % (0.0-0.4); Lymphocytes Absolute Auto 1.6 X10*3/uL (1.2-4.9); Lymphocytes Percent Auto 40.1 % (20-40); Mean Corpuscular HGB Conc 32.8 g/dl (31.0-35.0); Mean Corpuscular Hemoglobin 27.2 pg (27.0-33.0); Mean Corpuscular Volume 82.9 fL (80.0-98.0); Mean Platelet Volume 9.6 fL (9.4-12.3); Monocytes Absolute Auto 0.3 X10*3/uL (0.1-1.2); Monocytes Percent Auto 6.9 % (2-11); Neutrophils Absolute Auto 1.9 x10*3/uL (2.0-8.3); Neutrophils Percent Auto 49.4 % (45-73); Platelet Count 296 X10*3/uL (160-400); Red Blood Count 4.86 X10*6/uL (4.20-5.50); Red Cell Distribution Width 14.1 % (11.0-16.0); White Blood Count 3.9 X10*3/uL (4.8-10.8)
[2024-05-29 09:33] LABS: Alanine Aminotransferase 10 U/L (0-31); Albumin Level 4.3 g/dL (3.5-5.0); Alkaline Phosphatase 40 U/L (39-117); Anion Gap 14 (12-20); Aspartate Amino Transferase 15 U/L (5-31); Bilirubin Total 0.5 mg/dL (0.0-1.0); Blood Urea Nitrogen 7 mg/dL (9-16); Calcium 9.2 mg/dL (8.4-10.2); Carbon Dioxide 23 mmol/L (22-29); Chloride 107 mmol/L (96-108); Cholesterol 261 mg/dL (<200); Estimated Glomerular Filt Rate > 60; Glucose Random 97 mg/dL (60-115); HDL Cholesterol 68 mg/dL (>40); LDL Cholesterol Calculated 178 mg/dL (<100); Potassium 4.1 mmol/L (3.3-5.1); Sodium 140 mmol/L (135-145); Total Protein 7.4 g/dL (6.5-8.0); Triglycerides 78 mg/dL (<150)
[2024-05-29 10:25] LABS: Free T4 (Free Thyroxine) 0.78 ng/dL (0.71-1.85); Thyroid Stimulating Hormone 1.64 uIU/mL (0.32-4.0); Vitamin D 25-OH Total 45.2 ng/mL (>30)
[2024-05-29 10:36] LABS: Folate 11.1 ng/mL (> or = 4.0); Vitamin B12 316 pg/mL (200-900)
== END 2024-05-29 08:04 | disposition home or self-care (01) ==
LOC: HO.LAB 08:03
PROVIDERS: PCP Internal Medicine; Visit Provider Internal Medicine
DX: E78.5 Hyperlipidemia, unspecified (principal); E78.00 Pure hypercholesterolemia, unspecified
CPT/HCPCS: 36415; 80053; 80061; 82306; 82607; 82746; 84439; 84443; 85025